=== PATIENT | male | born 1970 | race American Indian/Alaskan Native ===

== ENCOUNTER 2020-07-22 20:53 | Inpatient (IN) | payer MEDICARE ==
--- NOTE | 2020-07-22 22:29 | Emergency Department Report ---
Blank Doc - Documentation Documentation: 50-year-old male that presents with right foot pain and swelling with drainage. 1- This initial assessment/diagnostic orders/clinical plan/ treatment(s) is/are subject to change based on pt's health status, clinical progression and re- assessment by fellow clinical providers in the ED. Further treatment and workup at subsequent clinical provers discretion. Patient/guardians urged not to elope from ED as their condition may be serious if not clinically assessed and managed. 2-x-ray rule out osteomyelitis 3-labs
--- NOTE | 2020-07-22 23:38 | XRay Report ---
RIGHT FOOT 3 VIEW(S) INDICATION / CLINICAL INFORMATION: right foot swelling with drainage r/o osteomyeliti COMPARISON: None available. FINDINGS: BONES / JOINT(S): Prior amputation of the first through fifth phalanges. Increased lucency and osteol ysis noted of the second through fifth metatarsal heads. Periosteal reactions and increased lucency a re noted through the distal shafts of all 5 metatarsals. No acute dislocation. There is partial midfo ot collapse and advanced subtalar arthrosis. SOFT TISSUES: There is a large ulceration over the plantar surface of the heel. Significant diffuse s oft tissue swelling and irregularity is noted throughout the foot. Postsurgical clips are noted over the forefoot and midfoot. Significant enthesophyte the noted at the plantar fascia and Achilles tendo n insertion sites. ADDITIONAL FINDINGS: None. IMPRESSION: 1. Findings consistent with osteomyelitis involving all 5 metatarsals as described above. 2. Postsurgical changes consistent with amputation of all 5 phalanges. 3. Significant soft tissue swelling and edema noted throughout the foot likely represents cellulitis. Additionally there is a large ulcer over the plantar surface of the heel. Signer Name: William Chew MD Signed: 07/22/2020 11:33 PM Workstation Name: [id number]
[2020-07-23 01:36] LABS: Basophils # (Auto) 0.1 K/mm3 (0.0-0.1); Basophils % (Auto) 0.6 % (0.0-1.8); Eosinophils # (Auto) 0.2 K/mm3 (0.0-0.4); Eosinophils % (Auto) 1.7 % (0.0-4.3); Hematocrit 38.9 % (35.5-45.6); Hemoglobin 12.5 gm/dl (11.8-15.2); Lymphocytes # (Auto) 3.9 K/mm3 (1.2-5.4); Lymphocytes % (Auto) 35.6 % (13.4-35.0); Mean Corpuscular HGB Conc 32 % (32-34); Mean Corpuscular Volume 85 fl (84-94); Monocytes # (Auto) 0.8 K/mm3 (0.0-0.8); Monocytes % (Auto) 7.3 % (0.0-7.3); Platelet Count 410 K/mm3 (140-440); Red Cell Distribution Width 18.9 % (13.2-15.2)
[2020-07-23 01:52] LABS: Alanine Aminotransferase 29 units/L (7-56); Albumin 3.5 g/dL (3.9-5); Blood Urea Nitrogen 11 mg/dL (9-20); Calcium 9.4 mg/dL (8.4-10.2); Hemolysis Index 28
[2020-07-23 01:59] LABS: BUN/Creatinine Ratio 16
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
[2020-07-23] MEDS ORDERED: SODIUM CHLORIDE 0.9% 1000 ML 1,000 ML IV ONE (11:47)
[2020-07-23] MEDS ORDERED: PIPERACILLIN/TAZOBACTAM 3.375 3.375 GM/50 ML BAG IV ONE (11:47)
[2020-07-23] MEDS ORDERED: VANCOMYCIN PHARMACY TO DOSE IV SCH ×2 (12:00→22:00)
[2020-07-23] MEDS ORDERED: ASPIRIN 81 MG TAB CHEW PO ONE (12:02)
--- NOTE | 2020-07-23 12:59 | Vascular Lab Report ---
DUPLEX DOPPLER LOWER EXTREMITY VEINS, RIGHT INDICATION / CLINICAL INFORMATION: Right leg swelling. TECHNIQUE: Duplex doppler imaging was performed through the veins of the right lower extremity using venous comp ression and other maneuvers. COMPARISON: None available. FINDINGS: RIGHT COMMON FEMORAL VEIN: Negative. RIGHT FEMORAL VEIN: Negative. RIGHT POPLITEAL VEIN: Negative. RIGHT CALF VEINS: Negative. ADDITIONAL FINDINGS: None. IMPRESSION: 1. No sonographic evidence for DVT in the right lower extremity. Signer Name: Constantino Perales MD Signed: 07/23/2020 12:54 PM Workstation Name: [id number]
[2020-07-23] MEDS ORDERED: VANCOMYCIN 2,000 MG in SODIUM CHLORIDE 0.9% 500 ML 500 ML IV ONE (13:00)
[2020-07-23 15:04] LABS: INR 1.07 (0.87-1.13); Partial Thromboplastin Time 31.1 Sec. (24.2-36.6)
[2020-07-23] MEDS ORDERED: IBUPROFEN 800 MG TAB PO PRN (21:03)
[2020-07-23] MEDS ORDERED: ACETAMINOPHEN 325 MG TAB PO PRN (21:47)
[2020-07-23] MEDS ORDERED: ONDANSETRON 4 MG/2 ML INJ IV PRN (21:47)
[2020-07-23] MEDS ORDERED: HYDROcodone/ACETAMINOPHEN 5-325 MG TAB PO PRN (21:47)
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
[2020-07-23] MEDS: INSULIN GLARGINE 100 UNITS/ML SUB-Q SCH (22:35)
[2020-07-23] MEDS: INSULIN LISPRO 100 UNIT/ML VIAL 3 mL SUB-Q SCH (22:41)
[2020-07-23] MEDS: FAMOTIDINE 20 MG TAB PO SCH (23:55)
[2020-07-24] MEDS: HYDROmorphone 1 MG/1 ML INJ IV PRN ×5 (00:06→20:10)
[2020-07-24] MEDS: AMPICILLIN/SULBACTA 3GM/100ML 3 GM/100 ML BAG IV SCH ×2 (00:09→05:22)
[2020-07-24] MEDS ORDERED: VANCOMYCIN 1,750 MG in SODIUM CHLORIDE 0.9% 500 ML 500 ML IV SCH ×2 (01:00→18:00)
[2020-07-24 02:43] LABS: Basophils % (Auto) 0.3 % (0.0-1.8); Eosinophils # (Auto) 0.2 K/mm3 (0.0-0.4); Eosinophils % (Auto) 2.3 % (0.0-4.3); Hematocrit 31.2 % (35.5-45.6); Hemoglobin 10.4 gm/dl (11.8-15.2); Lymphocytes # (Auto) 3.3 K/mm3 (1.2-5.4); Lymphocytes % (Auto) 41.6 % (13.4-35.0); Mean Corpuscular HGB Conc 33 % (32-34); Mean Corpuscular Volume 82 fl (84-94); Monocytes # (Auto) 0.5 K/mm3 (0.0-0.8); Monocytes % (Auto) 6.4 % (0.0-7.3); Platelet Count 371 K/mm3 (140-440); Red Blood Count 3.79 M/mm3 (3.65-5.03); Red Cell Distribution Width 18.4 % (13.2-15.2)
[2020-07-24 03:02] LABS: Alanine Aminotransferase 25 units/L (7-56); Albumin 3.1 g/dL (3.9-5); Blood Urea Nitrogen 14 mg/dL (9-20); Calcium 8.7 mg/dL (8.4-10.2); Hemolysis Index 4
[2020-07-24 03:17] LABS: BUN/Creatinine Ratio 23
[2020-07-24] MEDS: INSULIN LISPRO 100 UNIT/ML VIAL 3 mL SUB-Q SCH ×3 (08:00→16:33)
--- NOTE | 2020-07-24 08:24 | Progress Note ---
Assessment and Plan Assessment and plan: 50-year-old male with history of severe peripheral arterial disease and diabetes comes in for right foot infection. Patient has left BKA. Patient also has right TMA. The distal part of the TMA is draining pus and also a heel ulcer. Patient has not been following with any bradycardia. Patient went 3 months ago and was given antibiotics. No follow-up with any PCP any physicians. Not attending any wound care clinic. Patient has had a foul-smelling discharge for 1 week. 07/24: Continue supportive care, Will consult Wound care and Surgery, will also get lower ext Doppler of the right lower ext. Case management consult as patient has social issues that needs to be address, such as where to stay (1) Cellulitis of right leg Current Visit: Yes Status: Acute Plan to address problem: Patient initiated on Unasyn and vancomycin. ID consult requested. (2) Osteomyelitis of right foot Current Visit: Yes Status: Acute Plan to address problem: Patient may need further amputation. Surgical consult requested. Also Ortho consult requested. (3) Hypertension Current Visit: Yes Status: Chronic Qualifiers: Hypertension type: essential hypertension Qualified Code(s): I10 - Essential (primary) hypertension Plan to address problem: Continue antihypertensives. (4) T2DM (type 2 diabetes mellitus) Current Visit: Yes Status: Chronic Plan to address problem: -Sliding scale coverage for now long-acting insulin. (5) Anemia Monitor (6) DVT prophylaxis Current Visit: Yes Status: Acute Plan to address problem: On heparin and GI prophylaxis History Interval history: Patient seen and examined no new complaints, still with pain in the legs. 5/10 intensity Hospitalist Physical - Physical exam Narrative exam: General appearance: Present: no acute distress, well-nourished - EENT Eyes: Present: PERRL ENT: hearing intact, clear oral mucosa - Neck Neck: Present: supple, normal ROM - Respiratory Respiratory effort: normal Respiratory: bilateral: CTA - Cardiovascular Rhythm: regular Heart Sounds: Present: S1 & S2. Absent: rub, click - Extremities Extremities: pulses symmetrical, No edema, abnormal (Right foot ulcer and drainage on the TMA region. Also thick clear no heel ulcer. And thick callus present.) Peripheral Pulses: within normal limits - Abdominal General gastrointestinal: Present: soft, non-tender, non-distended, normal bowel sounds Male genitourinary: Present: normal - Integumentary Integumentary: Present: chronic vascular changes. - Musculoskeletal Musculoskeletal: gait normal, strength equal bilaterally - Psychiatric Psychiatric: appropriate mood/affect, intact judgment & insight - Neurologic Neurologic: CNII-XII intact, moves all extremities - Constitutional Vitals: Temp Pulse Resp BP Pulse Ox 98.9 F 78 20 141/83 98 07/24/20 07:33 07/24/20 07:33 07/24/20 07:33 07/24/20 07:33 07/24/20 07:33 General appearance: Present: no acute distress, well-nourished Results - Labs CBC & Chem 7: 07/24/20 02:10 07/24/20 02:10 Labs: Laboratory Last Values WBC 8.0 K/mm3 (4.5-11.0) 07/24/20 02:10 RBC 3.79 M/mm3 (3.65-5.03) 07/24/20 02:10 Hgb 10.4 gm/dl (11.8-15.2) L 07/24/20 02:10 Hct 31.2 % (35.5-45.6) L D 07/24/20 02:10 MCV 82 fl (84-94) L 07/24/20 02:10 MCH 28 pg (28-32) 07/24/20 02:10 MCHC 33 % (32-34) 07/24/20 02:10 RDW 18.4 % (13.2-15.2) H 07/24/20 02:10 Plt Count 371 K/mm3 (140-440) 07/24/20 02:10 Lymph % (Auto) 41.6 % (13.4-35.0) H 07/24/20 02:10 [place] % (Auto) 6.4 % (0.0-7.3) 07/24/20 02:10 Eos % (Auto) 2.3 % (0.0-4.3) 07/24/20 02:10 Baso % (Auto) 0.3 % (0.0-1.8) 07/24/20 02:10 Lymph # (Auto) 3.3 K/mm3 (1.2-5.4) 07/24/20 02:10 [place] # (Auto) 0.5 K/mm3 (0.0-0.8) 07/24/20 02:10 Eos # (Auto) 0.2 K/mm3 (0.0-0.4) 07/24/20 02:10 Baso # (Auto) 0.0 K/mm3 (0.0-0.1) 07/24/20 02:10 Seg Neutrophils % 49.4 % (40.0-70.0) 07/24/20 02:10 Seg Neutrophils # 4.0 K/mm3 (1.8-7.7) 07/24/20 02:10 PT 13.7 Sec. (12.2-14.9) 07/23/20 14:30 INR 1.07 (0.87-1.13) 07/23/20 14:30 APTT 31.1 Sec. (24.2-36.6) 07/23/20 14:30 Sodium 137 mmol/L (137-145) 07/24/20 02:10 Potassium 4.0 mmol/L (3.6-5.0) 07/24/20 02:10 Chloride 102.5 mmol/L (98-107) 07/24/20 02:10 Carbon Dioxide 26 mmol/L (22-30) 07/24/20 02:10 Anion Gap 13 mmol/L 07/24/20 02:10 BUN 14 mg/dL (9-20) 07/24/20 02:10 Creatinine 0.6 mg/dL (0.8-1.3) L 07/24/20 02:10 Estimated GFR > 60 ml/min 07/24/20 02:10 BUN/Creatinine Ratio 23 % 07/24/20 02:10 Glucose 262 mg/dL (75-100) H 07/24/20 02:10 POC Glucose 174 mg/dL (70-105) H 07/24/20 07:31 Hemoglobin A1c 9.6 % (4-6) H 07/24/20 00:46 Lactic Acid 1.20 mmol/L (0.7-2.0) 07/23/20 14:30 Calcium 8.7 mg/dL (8.4-10.2) 07/24/20 02:10 Magnesium 2.10 mg/dL (1.7-2.3) 07/23/20 14:30 Total Bilirubin 0.30 mg/dL (0.1-1.2) 07/24/20 02:10 AST 19 units/L (5-40) 07/24/20 02:10 ALT 25 units/L (7-56) 07/24/20 02:10 Alkaline Phosphatase 127 units/L (35-129) 07/24/20 02:10 NT-Pro-B Natriuret Pep 415.0 pg/mL (0-450) 07/23/20 14:30 Total Protein 7.1 g/dL (6.3-8.2) 07/24/20 02:10 Albumin 3.1 g/dL (3.9-5) L 07/24/20 02:10 Albumin/Globulin Ratio 0.8 % 07/24/20 02:10 Microbiology: Microbiology 07/23/20 14:38 Peripheral/Venous Blood Culture - Preliminary Culture in Progress 07/23/20 14:30 Peripheral/Venous Blood Culture - Preliminary Culture in Progress Fraser/IV: Voiding Method Urinal IV Catheter Type [Left Peripheral IV Antecubital] IV Catheter Type [Right Wrist] INT / Saline Lock Active Medications - Current Medications Current Medications: Generic Name Dose Route Start Last Admin Trade Name Freq PRN Reason Stop Dose Admin Acetaminophen 650 mg 07/23/20 21:47 Acetaminophen 325 Mg Tab PO Q4H PRN Pain MILD(1-3)/Fever >100.5/[place] Famotidine 20 mg 07/23/20 22:00 07/23/20 23:55 Famotidine 20 Mg Tab PO 20 mg BID IRMA Administration Hydromorphone HCl 0.5 mg 07/23/20 21:47 07/24/20 05:19 Hydromorphone 1 Mg/1 Ml Inj IV 0.5 mg Q3H PRN Administration Pain , Severe (7-10) Vancomycin HCl 1,750 mg/ 535 mls @ 333.333 mls/hr 07/24/20 01:00 07/24/20 02:00 Sodium Chloride IV 333.333 mls/hr Q12H IRMA Administration Ampicillin Sodium/Sulbactam Sodium 3 gm in 100 mls @ 100 mls/hr 07/24/20 00:00 07/24/20 05:22 Unasyn/Ns 3 Gm/100 Ml IV 100 mls/hr Q6HR IRMA Administration Protocol Ibuprofen 800 mg 07/23/20 21:03 07/23/20 21:13 Ibuprofen 800 Mg Tab PO 800 mg Q8H PRN Administration Pain, Mild (1-3) Insulin Glargine 25 units 07/23/20 22:00 07/23/20 22:35 Insulin Glargine 100 Units/Ml SUB-Q 25 units QHS IRMA Administration Insulin Human Lispro 0 unit 07/23/20 22:00 07/23/20 22:41 Insulin Lispro 100 Unit/Ml Vial 3 Ml SUB-Q 4 unit ACHS IRMA Administration Protocol Ondansetron HCl 4 mg 07/23/20 21:47 Ondansetron 4 Mg/2 Ml Inj IV Q8H PRN Nausea And Vomiting Sodium Chloride 10 ml 07/23/20 22:00 07/24/20 05:26 Sodium Chloride 0.9% 10 Ml Flush Syringe IV 10 ml BID IRMA Administration Sodium Chloride 10 ml 07/23/20 21:47 Sodium Chloride 0.9% 10 Ml Flush Syringe IV PRN PRN LINE FLUSH
--- NOTE | 2020-07-24 08:54 | Consultation ---
History of Present Illness - Reason for Consult Consult date: 07/24/20 right foot cellulitis Requesting physician: VANNESSA BERUMEN - History of Present Illness 50 years old male with history of uncontrolled diabetes, hypertension, severe peripheral vascular disease, previous left BKA, previous right TMA, admitted on 07/22/2020 secondary to distal right TMA stump draining foul-smelling purulence associated with pain and subjective fever. And also a right heel ulcer for over a week. Patient noted a new ulcer on right TMA 4 weeks before admission. Patient is homeless. He was seen at [facility] 3 months ago and was given antibiotics. On arrival, temperature 97.6, HR 99, RR 18, O2 sat 99%, BP 154/96. Initial WBC 11. Hemoglobin 10.5. Platelet 410. A1c 9.6. Blood cultures no growth today. Right foot x-ray shows osteomyelitis of the feet metatarsal with significant soft tissue swelling. Ultrasound no DVT. Review of Systems: positive in bold print General: fever, chills, malaise Cutaneous: rash, pruritus Head: headaches or injury Eyes: changes in vision, eye pain, double vision Ears: ear pain, ear discharge, ringing or hearing loss Nose: nose bleeding, stuffiness Mouth & throat: bleeding gums, horseness, no dental problems, or swollen glands Neck: no pain, node enlargement/lumps, tyroid enlargement or tenderness Respiratory: SOB, cough, BEAR, wheezing, sputum, hemoptysis, pleuritic chest pain Cardiovascular: chest pain, leg edema, cyanosis, BEAR, orthopnea Musculoskeletal: Right TMA ulcer and drainage Gastrointestinal: nausea, vomiting, hematemesis, diarrhea, constipation, melena, bright red blood in stools, fecal incontinence, jaundice Genitourinary/Reproductive: frequent urination, dysuria, hematuria, incontinence Neurogical: seizures, headaches, weakness, paresthesias, loss of speech or vision; memory loss, vertigo, tremors, numbness Psychiatric: stable mood; excessive anxiety, sadness or moodiness Medications and Allergies Allergies Allergy/AdvReac Type Severity Reaction Status Date / Time acetaminophen [From Vicodin] Allergy Unknown Verified 07/23/20 12:02 exenatide [From Byetta] Allergy Unknown Verified 07/23/20 12:02 hydrocodone [From Vicodin] Allergy Unknown Verified 07/23/20 12:02 pioglitazone [From Actos] Allergy Unknown Verified 07/23/20 12:02 Active Meds: Active Medications Acetaminophen (Acetaminophen 325 Mg Tab) 650 mg PO Q4H PRN PRN Reason: Pain MILD(1-3)/Fever >100.5/[place] Famotidine (Famotidine 20 Mg Tab) 20 mg PO BID [facility] Last Admin: 07/23/20 23:55 Dose: 20 mg Documented by: Hydromorphone HCl (Hydromorphone 1 Mg/1 Ml Inj) 0.5 mg IV Q3H PRN PRN Reason: Pain , Severe (7-10) Last Admin: 07/24/20 05:19 Dose: 0.5 mg Documented by: Vancomycin HCl 1,750 mg/ (Sodium Chloride) 535 mls @ 333.333 mls/hr IV Q12H [facility] Last Admin: 07/24/20 02:00 Dose: 333.333 mls/hr Documented by: Ampicillin Sodium/Sulbactam Sodium (Unasyn/Ns 3 Gm/100 Ml) 3 gm in 100 mls @ 100 mls/hr IV Q6HR [facility]; Protocol Last Admin: 07/24/20 05:22 Dose: 100 mls/hr Documented by: Ibuprofen (Ibuprofen 800 Mg Tab) 800 mg PO Q8H PRN PRN Reason: Pain, Mild (1-3) Last Admin: 07/23/20 21:13 Dose: 800 mg Documented by: Insulin Glargine (Insulin Glargine 100 Units/Ml) 25 units SUB-Q QHS [facility] Last Admin: 07/23/20 22:35 Dose: 25 units Documented by: Insulin Human Lispro (Insulin Lispro 100 Unit/Ml Vial 3 Ml) 0 unit SUB-Q ACHS [facility]; Protocol Last Admin: 07/23/20 22:41 Dose: 4 unit Documented by: Ondansetron HCl (Ondansetron 4 Mg/2 Ml Inj) 4 mg IV Q8H PRN PRN Reason: Nausea And Vomiting Sodium Chloride (Sodium Chloride 0.9% 10 Ml Flush Syringe) 10 ml IV BID [facility] Last Admin: 07/24/20 05:26 Dose: 10 ml Documented by: Sodium Chloride (Sodium Chloride 0.9% 10 Ml Flush Syringe) 10 ml IV PRN PRN PRN Reason: LINE FLUSH Physical Examination - Physical Exam Narrative exam: General appearance: Alert in NAD Eyes: anicteric sclerae, moist conjunctivae; no lid-lag; PERRLA HENT: Normocephalic, Atraumatic; normal external ears, nares open, oropharynx clear Neck: supple, tracheal midline, no JVD Lungs: CTA, with normal respiratory effort and no intercostal retractions CV: RRR no murmur Abdomen: Soft, non-tender; no masses or hepatosplenomegaly Extremities: Left below-knee amputation stump healed, right TMA with wound covered with dressing Skin: No rash. Psych: no agitated Neuro: alert and oriented x 3. Moving all extermities - Constitutional Vitals: Vital Signs Temp Pulse Resp BP Pulse Ox 98.9 F 78 20 141/83 98 07/24/20 07:33 07/24/20 07:33 07/24/20 07:33 07/24/20 07:33 07/24/20 07:33 Temperature -Last 24 Hours Temperature 98.9 F Temperature 97.8 F Temperature 97.9 F Temperature 98.4 F Results - Labs CBC & Chem 7: 07/24/20 02:10 07/24/20 02:10 Labs: Abnormal lab results 07/23/20 07/24/20 07/24/20 Range/Units 21:17 00:46 02:10 Hgb 10.4 L (11.8-15.2) gm/dl Hct 31.2 L D (35.5-45.6) % MCV 82 L (84-94) fl RDW 18.4 H (13.2-15.2) % Lymph % (Auto) 41.6 H (13.4-35.0) % Creatinine (0.8-1.3) mg/dL Glucose (75-100) mg/dL POC Glucose 293 H (70-105) mg/dL Hemoglobin A1c 9.6 H (4-6) % Albumin (3.9-5) g/dL 07/24/20 07/24/20 Range/Units 02:10 07:31 Hgb (11.8-15.2) gm/dl Hct (35.5-45.6) % MCV (84-94) fl RDW (13.2-15.2) % Lymph % (Auto) (13.4-35.0) % Creatinine 0.6 L (0.8-1.3) mg/dL Glucose 262 H (75-100) mg/dL POC Glucose 174 H (70-105) mg/dL Hemoglobin A1c (4-6) % Albumin 3.1 L (3.9-5) g/dL Assessment and Plan Cultures: Blood cultures no growth today Assessment: 50 years old male with history of uncontrolled diabetes, hypertension, severe peripheral vascular disease, previous left BKA, previous ri ght TMA, admitted on 07/22/2020 secondary to distal right TMA stump draining foul-smelling purulence associated with pain and subjective fever: #Right TMA stump infection/osteomyelitis: Patient has no records in this hospital. Unknown etiology. #Diabetes mellitus: Uncontrolled, A1c 9.6. #Peripheral vascular disease: With history of revascularization. Recommendations: -Obtain the wound cultures -Check CRP -Obtain surgical consult, may require further debridement versus amputation -Obtain arterial ultrasound -Stop Unasyn -Start cefepime 2 g IV every 12 hours -Start metronidazole 500 g IV every 8 hours Will follow. Sruthi Valenzuela MD Infectious Diseases [employer] War[employer] Boat Operator [facility], [place], [facility] M [phone] O [phone]
[2020-07-24] MEDS: FAMOTIDINE 20 MG TAB PO SCH ×2 (10:14→21:35)
[2020-07-24] MEDS: CEFEPIME/NS 2 GM/100 ML 2 GM/100 ML BAG IV SCH ×2 (13:30→21:21)
[2020-07-24] MEDS: metroNIDAZOLE/NS 500 MG/100 ML 500 MG/100 ML BAG IV SCH (14:02)
--- NOTE | 2020-07-24 15:15 | Consultation ---
History of Present Illness Consult date: 07/24/20 - History of present illness History of present illness: 50 yo diabetic, s/p left BKA, now with an ulcer on the plantar aspect of his right foot. He is s/p TMA of a right toe 3-4 weeks ago at [place]. Past History Past Medical History: diabetes Medications and Allergies Allergies Allergy/AdvReac Type Severity Reaction Status Date / Time acetaminophen [From Vicodin] Allergy Unknown Verified 07/23/20 12:02 exenatide [From Byetta] Allergy Unknown Verified 07/23/20 12:02 hydrocodone [From Vicodin] Allergy Unknown Verified 07/23/20 12:02 pioglitazone [From Actos] Allergy Unknown Verified 07/23/20 12:02 Active Meds: Active Medications Acetaminophen (Acetaminophen 325 Mg Tab) 650 mg PO Q4H PRN PRN Reason: Pain MILD(1-3)/Fever >100.5/[place] Famotidine (Famotidine 20 Mg Tab) 20 mg PO BID [facility] Last Admin: 07/24/20 10:14 Dose: 20 mg Documented by: Hydromorphone HCl (Hydromorphone 1 Mg/1 Ml Inj) 0.5 mg IV Q3H PRN PRN Reason: Pain , Severe (7-10) Last Admin: 07/24/20 14:00 Dose: 0.5 mg Documented by: Metronidazole (Flagyl 500 Mg/100 Ml) 500 mg in 100 mls @ 100 mls/hr IV Q8HR [facility] Last Admin: 07/24/20 14:02 Dose: 100 mls/hr Documented by: Cefepime HCl (Cefepime/Ns 2 Gm/100 Ml) 2 gm in 100 mls @ 200 mls/hr IV Q12HR [facility] Last Admin: 07/24/20 13:30 Dose: 200 mls/hr Documented by: Ibuprofen (Ibuprofen 800 Mg Tab) 800 mg PO Q8H PRN PRN Reason: Pain, Mild (1-3) Last Admin: 07/23/20 21:13 Dose: 800 mg Documented by: Insulin Glargine (Insulin Glargine 100 Units/Ml) 25 units SUB-Q QHS [facility] Last Admin: 07/23/20 22:35 Dose: 25 units Documented by: Insulin Human Lispro (Insulin Lispro 100 Unit/Ml Vial 3 Ml) 0 unit SUB-Q ACHS [facility]; Protocol Last Admin: 07/23/20 22:41 Dose: 4 unit Documented by: Ondansetron HCl (Ondansetron 4 Mg/2 Ml Inj) 4 mg IV Q8H PRN PRN Reason: Nausea And Vomiting Sodium Chloride (Sodium Chloride 0.9% 10 Ml Flush Syringe) 10 ml IV BID [facility] Last Admin: 07/24/20 05:26 Dose: 10 ml Documented by: Sodium Chloride (Sodium Chloride 0.9% 10 Ml Flush Syringe) 10 ml IV PRN PRN PRN Reason: LINE FLUSH Review of Systems All systems: negative (none) Exam Vital Signs Temp Pulse Resp BP Pulse Ox 97.6 F 99 H 18 154/96 99 07/22/20 21:07 07/22/20 21:07 07/22/20 21:07 07/22/20 21:07 07/22/20 21:07 - General physical appearance Positive: well developed, well nourished, no distress - Eyes Positive: PERRL, normal occular movement - ENT Positive: normal pinna, normal nares, normal mucosa, no hearing loss, no congestion - Neck Positive: no masses, no bruits, trachea midline, no venous distension - Respiratory Positive: normal expansion, normal respiratory effort, clear to auscultation - Cardiovascular Rhythm: regular Heart Sounds: Present: S1 & S2. Absent: rub, click - Extremities Extremities: no ischemia, pulses symmetrical, No edema - Breasts Breasts: normal, no mass, no skin changes - Abdomen Abdomen: Present: soft, bowel sounds normal. Absent: tender, distended Hernia: none - Genitourinary Male Genitourinary: normal Female Genitourinary: normal - Integumentary no rash, no growths, other (There is a 7.5 X 6 X 0.3 cm superficial ulceration on the plantar aspect of his medial right foot. I see no evidence of underyling infection or abscess. Right DP pulse is non-palpable.) - Neurologic Neurologic: alert and oriented to time, place and person, motor strength and sensation are grossly intact - Musculoskeletal normal gait, normal posture - Psychiatric Psychiatric: appropriate mood/affect, intact judgment & insight Results - Labs 07/24/20 02:10 07/24/20 02:10 Abnormal lab results 07/23/20 07/24/20 07/24/20 Range/Units 21:17 00:46 02:10 Hgb 10.4 L (11.8-15.2) gm/dl Hct 31.2 L D (35.5-45.6) % MCV 82 L (84-94) fl RDW 18.4 H (13.2-15.2) % Lymph % (Auto) 41.6 H (13.4-35.0) % Creatinine (0.8-1.3) mg/dL Glucose (75-100) mg/dL POC Glucose 293 H (70-105) mg/dL Hemoglobin A1c 9.6 H (4-6) % Albumin (3.9-5) g/dL 07/24/20 07/24/20 07/24/20 Range/Units 02:10 07:31 11:26 Hgb (11.8-15.2) gm/dl Hct (35.5-45.6) % MCV (84-94) fl RDW (13.2-15.2) % Lymph % (Auto) (13.4-35.0) % Creatinine 0.6 L (0.8-1.3) mg/dL Glucose 262 H (75-100) mg/dL POC Glucose 174 H 176 H (70-105) mg/dL Hemoglobin A1c (4-6) % Albumin 3.1 L (3.9-5) g/dL Diabetes panel 07/24/20 07/24/20 Range/Units 00:46 02:10 Sodium 137 (137-145) mmol/L Potassium 4.0 (3.6-5.0) mmol/L Chloride 102.5 (98-107) mmol/L Carbon Dioxide 26 (22-30) mmol/L BUN 14 (9-20) mg/dL Creatinine 0.6 L (0.8-1.3) mg/dL Glucose 262 H (75-100) mg/dL Hemoglobin A1c 9.6 H (4-6) % Calcium 8.7 (8.4-10.2) mg/dL AST 19 (5-40) units/L ALT 25 (7-56) units/L Alkaline Phosphatase 127 (35-129) units/L Total Protein 7.1 (6.3-8.2) g/dL Albumin 3.1 L (3.9-5) g/dL Calcium panel 07/24/20 Range/Units 02:10 Calcium 8.7 (8.4-10.2) mg/dL Albumin 3.1 L (3.9-5) g/dL Pituitary panel 07/24/20 Range/Units 02:10 Sodium 137 (137-145) mmol/L Potassium 4.0 (3.6-5.0) mmol/L Chloride 102.5 (98-107) mmol/L Carbon Dioxide 26 (22-30) mmol/L BUN 14 (9-20) mg/dL Creatinine 0.6 L (0.8-1.3) mg/dL Glucose 262 H (75-100) mg/dL Calcium 8.7 (8.4-10.2) mg/dL Adrenal panel 07/24/20 Range/Units 02:10 Sodium 137 (137-145) mmol/L Potassium 4.0 (3.6-5.0) mmol/L Chloride 102.5 (98-107) mmol/L Carbon Dioxide 26 (22-30) mmol/L BUN 14 (9-20) mg/dL Creatinine 0.6 L (0.8-1.3) mg/dL Glucose 262 H (75-100) mg/dL Calcium 8.7 (8.4-10.2) mg/dL Total Bilirubin 0.30 (0.1-1.2) mg/dL AST 19 (5-40) units/L ALT 25 (7-56) units/L Alkaline Phosphatase 127 (35-129) units/L Total Protein 7.1 (6.3-8.2) g/dL Albumin 3.1 L (3.9-5) g/dL - Imaging Additional studies: RLE arterial dopplers on were reviewed and revealed Assessment and Plan - Patient Problems (1) Osteomyelitis of right foot Current Visit: Yes Status: Acute Plan to address problem: 1) I will review the plain x-ray of his right foot and the RLE arterial dopplers. 2) Wound care consult 3) Strict management of DM
[2020-07-25] MEDS: metroNIDAZOLE/NS 500 MG/100 ML 500 MG/100 ML BAG IV SCH ×4 (00:02→22:11)
[2020-07-25] MEDS: INSULIN LISPRO 100 UNIT/ML VIAL 3 mL SUB-Q SCH ×5 (00:03→22:27)
[2020-07-25] MEDS: AMPICILLIN/SULBACTA 3GM/100ML 3 GM/100 ML BAG IV SCH (00:07)
[2020-07-25 05:47] LABS: Hematocrit 35.8 % (35.5-45.6); Hemoglobin 11.5 gm/dl (11.8-15.2); Mean Corpuscular HGB Conc 32 % (32-34); Mean Corpuscular Volume 84 fl (84-94); Platelet Count 388 K/mm3 (140-440); Red Blood Count 4.25 M/mm3 (3.65-5.03); Red Cell Distribution Width 18.8 % (13.2-15.2)
[2020-07-25 06:01] LABS: Blood Urea Nitrogen 10 mg/dL (9-20); Calcium 8.6 mg/dL (8.4-10.2); Hemolysis Index 50
[2020-07-25 06:02] LABS: BUN/Creatinine Ratio 17
[2020-07-25] MEDS: HYDROmorphone 1 MG/1 ML INJ IV PRN ×4 (08:05→23:23)
--- NOTE | 2020-07-25 08:50 | Progress Note ---
Assessment and Plan Assessment and plan: 50-year-old male with history of severe peripheral arterial disease and diabetes comes in for right foot infection. Patient has left BKA. Patient also has right TMA. The distal part of the TMA is draining pus and also a heel ulcer. Patient has not been following with any bradycardia. Patient went 3 months ago and was given antibiotics. No follow-up with any PCP any physicians. Not attending any wound care clinic. Patient has had a foul-smelling discharge for 1 week. 07/24: Continue supportive care, Will consult Wound care and Surgery, will also get lower ext Doppler of the right lower ext. Case management consult as patient has social issues that needs to be address, such as where to stay 07/25: Continue supportive care. Awaiting re-eval from surgery after reviewing imaging, obtain arterial study considering poor wound healing. Venous doppler was negative. Adjust insulin for better blood glucose control. Further evaluation yesterday shows that the patient was refusing further surgery. I will order a Doppler of the arteries as patient possibly has underlying PAD. (1) Cellulitis of right leg Current Visit: Yes Status: Acute Plan to address problem: Patient initiated on Unasyn and vancomycin. ID consult requested. (2) Osteomyelitis of right foot Current Visit: Yes Status: Acute Plan to address problem: Patient may need further amputation. Surgical consult requested. Also Ortho consult requested. (3) Hypertension Current Visit: Yes Status: Chronic Qualifiers: Hypertension type: essential hypertension Qualified Code(s): I10 - Essential (primary) hypertension Plan to address problem: Continue antihypertensives. (4) T2DM (type 2 diabetes mellitus) Current Visit: Yes Status: Chronic Plan to address problem: -Sliding scale coverage for now long-acting insulin. (5) Anemia Monitor (6) DVT prophylaxis Current Visit: Yes Status: Acute Plan to address problem: On heparin and GI prophylaxis History Interval history: Patient seen and examined no new complaints, still with pain in the legs. 3/10 intensity. Informs me that he is homeless and would like a social work consult Hospitalist Physical - Physical exam Narrative exam: General appearance: Present: no acute distress, well-nourished - EENT Eyes: Present: PERRL ENT: hearing intact, clear oral mucosa - Neck Neck: Present: supple, normal ROM - Respiratory Respiratory effort: normal Respiratory: bilateral: CTA - Cardiovascular Rhythm: regular Heart Sounds: Present: S1 & S2. Absent: rub, click - Extremities Extremities: pulses symmetrical, No edema, abnormal (Right foot ulcer and drainage on the TMA region. Also thick clear no heel ulcer. And thick callus present.) Peripheral Pulses: within normal limits - Abdominal General gastrointestinal: Present: soft, non-tender, non-distended, normal bowel sounds Male genitourinary: Present: normal - Integumentary Integumentary: Present: chronic vascular changes. - Musculoskeletal Musculoskeletal: gait normal, strength equal bilaterally - Psychiatric Psychiatric: appropriate mood/affect, intact judgment & insight - Neurologic Neurologic: CNII-XII intact, moves all extremities - Constitutional Vitals: Temp Pulse Resp BP Pulse Ox 97.9 F 79 18 178/93 97 07/25/20 08:01 07/25/20 05:34 07/25/20 08:01 07/25/20 08:01 07/25/20 05:34 General appearance: Present: no acute distress, well-nourished Results - Labs CBC & Chem 7: 07/25/20 05:03 07/25/20 05:03 Labs: Laboratory Last Values WBC 7.9 K/mm3 (4.5-11.0) 07/25/20 05:03 RBC 4.25 M/mm3 (3.65-5.03) 07/25/20 05:03 Hgb 11.5 gm/dl (11.8-15.2) L 07/25/20 05:03 Hct 35.8 % (35.5-45.6) 07/25/20 05:03 MCV 84 fl (84-94) 07/25/20 05:03 MCH 27 pg (28-32) L 07/25/20 05:03 MCHC 32 % (32-34) 07/25/20 05:03 RDW 18.8 % (13.2-15.2) H 07/25/20 05:03 Plt Count 388 K/mm3 (140-440) 07/25/20 05:03 Lymph % (Auto) 41.6 % (13.4-35.0) H 07/24/20 02:10 [place] % (Auto) 6.4 % (0.0-7.3) 07/24/20 02:10 Eos % (Auto) 2.3 % (0.0-4.3) 07/24/20 02:10 Baso % (Auto) 0.3 % (0.0-1.8) 07/24/20 02:10 Lymph # (Auto) 3.3 K/mm3 (1.2-5.4) 07/24/20 02:10 [place] # (Auto) 0.5 K/mm3 (0.0-0.8) 07/24/20 02:10 Eos # (Auto) 0.2 K/mm3 (0.0-0.4) 07/24/20 02:10 Baso # (Auto) 0.0 K/mm3 (0.0-0.1) 07/24/20 02:10 Seg Neutrophils % 49.4 % (40.0-70.0) 07/24/20 02:10 Seg Neutrophils # 4.0 K/mm3 (1.8-7.7) 07/24/20 02:10 PT 13.7 Sec. (12.2-14.9) 07/23/20 14:30 INR 1.07 (0.87-1.13) 07/23/20 14:30 APTT 31.1 Sec. (24.2-36.6) 07/23/20 14:30 Sodium 134 mmol/L (137-145) L 07/25/20 05:03 Potassium 4.1 mmol/L (3.6-5.0) 07/25/20 05:03 Chloride 100.9 mmol/L (98-107) 07/25/20 05:03 Carbon Dioxide 29 mmol/L (22-30) 07/25/20 05:03 Anion Gap 8 mmol/L 07/25/20 05:03 BUN 10 mg/dL (9-20) 07/25/20 05:03 Creatinine 0.6 mg/dL (0.8-1.3) L 07/25/20 05:03 Estimated GFR > 60 ml/min 07/25/20 05:03 BUN/Creatinine Ratio 17 % 07/25/20 05:03 Glucose 239 mg/dL (75-100) H 07/25/20 05:03 POC Glucose 201 mg/dL (70-105) H 07/25/20 07:59 Hemoglobin A1c 9.6 % (4-6) H 07/24/20 00:46 Lactic Acid 1.20 mmol/L (0.7-2.0) 07/23/20 14:30 Calcium 8.6 mg/dL (8.4-10.2) 07/25/20 05:03 Magnesium 2.10 mg/dL (1.7-2.3) 07/23/20 14:30 Total Bilirubin 0.30 mg/dL (0.1-1.2) 07/24/20 02:10 AST 19 units/L (5-40) 07/24/20 02:10 ALT 25 units/L (7-56) 07/24/20 02:10 Alkaline Phosphatase 127 units/L (35-129) 07/24/20 02:10 C-Reactive Protein 1.30 mg/dL (0.00-1.30) 07/25/20 05:03 NT-Pro-B Natriuret Pep 415.0 pg/mL (0-450) 07/23/20 14:30 Total Protein 7.1 g/dL (6.3-8.2) 07/24/20 02:10 Albumin 3.1 g/dL (3.9-5) L 07/24/20 02:10 Albumin/Globulin Ratio 0.8 % 07/24/20 02:10 Microbiology: Microbiology 07/23/20 14:38 Peripheral/Venous Blood Culture - Preliminary NO GROWTH AFTER 24 HOURS 07/23/20 14:30 Peripheral/Venous Blood Culture - Preliminary NO GROWTH AFTER 24 HOURS Fraser/IV: Voiding Method Toilet IV Catheter Type [Left Peripheral IV Antecubital] IV Catheter Type [Right Wrist] INT / Saline Lock Active Medications - Current Medications Current Medications: Generic Name Dose Route Start Last Admin Trade Name Freq PRN Reason Stop Dose Admin Acetaminophen 650 mg 07/23/20 21:47 Acetaminophen 325 Mg Tab PO Q4H PRN Pain MILD(1-3)/Fever >100.5/[place] Famotidine 20 mg 07/23/20 22:00 07/24/20 21:35 Famotidine 20 Mg Tab PO 20 mg BID [facility] Administration Hydromorphone HCl 0.5 mg 07/23/20 21:47 07/25/20 08:05 Hydromorphone 1 Mg/1 Ml Inj IV 0.5 mg Q3H PRN Administration Pain , Severe (7-10) Metronidazole 500 mg in 100 mls @ 100 mls/hr 07/24/20 14:00 07/25/20 06:37 Flagyl 500 Mg/100 Ml IV 100 mls/hr Q8HR [facility] Administration Cefepime HCl 2 gm in 100 mls @ 200 mls/hr 07/24/20 12:30 07/24/20 21:21 Cefepime/Ns 2 Gm/100 Ml IV 200 mls/hr Q12HR [facility] Administration Ibuprofen 800 mg 07/23/20 21:03 07/23/20 21:13 Ibuprofen 800 Mg Tab PO 800 mg Q8H PRN Administration Pain, Mild (1-3) Insulin Glargine 25 units 07/23/20 22:00 07/25/20 00:00 Insulin Glargine 100 Units/Ml SUB-Q 25 units QHS [facility] Administration Insulin Human Lispro 0 unit 07/23/20 22:00 07/25/20 00:03 Insulin Lispro 100 Unit/Ml Vial 3 Ml SUB-Q 6 unit ACHS [facility] Administration Protocol Ondansetron HCl 4 mg 07/23/20 21:47 Ondansetron 4 Mg/2 Ml Inj IV Q8H PRN Nausea And Vomiting Sodium Chloride 10 ml 07/23/20 22:00 07/24/20 21:26 Sodium Chloride 0.9% 10 Ml Flush Syringe IV 10 ml BID [facility] Administration Sodium Chloride 10 ml 07/23/20 21:47 Sodium Chloride 0.9% 10 Ml Flush Syringe IV PRN PRN LINE FLUSH Nutrition/Malnutrition Assess - Dietary Evaluation Nutrition/Malnutrition Findings: Nutrition Notes Start: 07/24/20 15:08 Freq: Status: Active Protocol: Document 07/24/20 15:08 (Rec: 07/24/20 15:14 [id number]) Nutrition Notes Initial or Follow up Brief Note Current Diagnosis Diabetes,Hypertension Other Pertinent Diagnosis PVD, right heal ulcer, L BKA, previous R TMA Current Diet Cardiac, Consistent CHO Labs/Tests A1c 9.6 Subjective/Other Information Pt requesting diet education about current diet. Pt also requested diet edu for when he is discharged. Pt states he is homeless and eats at fastfood resturants for most meals. Foods include: coffee, eggs, grits, chicken sausage, fried chicken sandwiches, and cheese burgers. came in to address wound at time of visit . Nutrition Intervention Follow-Up By: 07/25/20 Additional Comments FU for diet education
[2020-07-25] MEDS: FAMOTIDINE 20 MG TAB PO SCH ×2 (10:13→22:11)
[2020-07-25] MEDS: CEFEPIME/NS 2 GM/100 ML 2 GM/100 ML BAG IV SCH ×2 (10:13→23:17)
--- NOTE | 2020-07-25 10:32 | Progress Note ---
Assessment and Plan Cultures: Blood cultures no growth today Assessment: 50 years old male with history of uncontrolled diabetes, hypertension, severe peripheral vascular disease, previous left BKA, previous right TMA, admitted on 07/22/2020 secondary to distal right TMA stump draining foul-smelling purulence associated with pain and subjective fever: #Right TMA stump infection/osteomyelitis?: Patient has no records in this h ospital. S/p TMA of a right toe 3-4 weeks ago at [place]. Unknown etiology. CRP 1.3. On exam per wound care -right plantar foot diabetic ulcer, measures 8 x 7 x 0.2 cm. Wound bed is red. Moderate amount of serosanguineous drainage, no odor noted at this time. Periwound skin is moist and macerated, with scar tissue noted. #Diabetes mellitus: Uncontrolled, A1c 9.6. #Peripheral vascular disease: With history of revascularization. Recommendations: -Surgery on board -Obtain arterial ultrasound - pending -Continue cefepime 2 g IV every 12 hours -Continue metronidazole 500 g IV every 8 hours -If not need for revascularization or further debridement ok to d/c on doxycycline 100 mg po bid and augmentin 875 mg po bid for 10 days total and f/u with surgical group at [place] Will follow. Sruthi Valenzuela MD Infectious Diseases Traffic Signal Supervisor Maintenance [facility] M [phone] O [phone] Subjective Date of service: 07/25/20 Principal diagnosis: Osteomyelitis Interval history: Feels ok no complaints no fever Objective - Exam Narrative Exam: General appearance: Alert in NAD Eyes: anicteric sclerae, moist conjunctivae; no lid-lag; PERRLA HENT: Normocephalic, Atraumatic; normal external ears, nares open, oropharynx clear Neck: supple, tracheal midline, no JVD Lungs: CTA, with normal respiratory effort and no intercostal retractions CV: RRR no murmur Abdomen: Soft, non-tender; no masses or hepatosplenomegaly Extremities: Left below-knee amputation stump healed, right TMA with wound covered with dressing Skin: No rash. Psych: no agitated Neuro: alert and oriented x 3. Moving all extermities - Constitutional Vitals: Vital Signs Temp Pulse Resp BP Pulse Ox 97.9 F 79 18 178/93 97 07/25/20 08:01 07/25/20 05:34 07/25/20 08:01 07/25/20 08:01 07/25/20 05:34 Temperature -Last 24 Hours Temperature 97.9 F Temperature 98.1 F Temperature 98.5 F Temperature 97.6 F Temperature 98.9 F Temperature 97.0 F - Labs CBC & Chem 7: 07/25/20 05:03 07/25/20 05:03 Labs: Abnormal lab results 07/24/20 07/24/20 07/24/20 Range/Units 11:26 16:01 22:38 Hgb (11.8-15.2) gm/dl MCH (28-32) pg RDW (13.2-15.2) % Sodium (137-145) mmol/L Creatinine (0.8-1.3) mg/dL Glucose (75-100) mg/dL POC Glucose 176 H 206 H 251 H (70-105) mg/dL 07/25/20 07/25/20 07/25/20 Range/Units 05:03 05:03 07:59 Hgb 11.5 L (11.8-15.2) gm/dl MCH 27 L (28-32) pg RDW 18.8 H (13.2-15.2) % Sodium 134 L (137-145) mmol/L Creatinine 0.6 L (0.8-1.3) mg/dL Glucose 239 H (75-100) mg/dL POC Glucose 201 H (70-105) mg/dL
--- NOTE | 2020-07-25 14:00 | Progress Note ---
Assessment and Plan - Patient Problems (1) Osteomyelitis of right foot Current Visit: Yes Status: Acute Plan to address problem: 1) Pt refuses consideration of further surgery (i.e., TMA of metatarsal heads) 2) Follow ID recommendations 3) HBOT as an outpt although this may be challenging as pt is homeless. Subjective Date of service: 07/25/20 Patient Reports: Positive: no new complaints Objective Vital Signs - 12hr 07/25/20 07/25/20 07/25/20 05:34 08:01 11:38 Temperature 98.1 F 97.9 F 98.4 F Pulse Rate 79 83 Respiratory 18 18 18 Rate Blood Pressure 147/86 178/93 174/94 O2 Sat by Pulse 97 97 Oximetry - Integumentary other (No change in right foot exam.) - Labs 07/25/20 05:03 07/25/20 05:03 Diabetes panel 07/25/20 Range/Units 05:03 Sodium 134 L (137-145) mmol/L Potassium 4.1 (3.6-5.0) mmol/L Chloride 100.9 (98-107) mmol/L Carbon Dioxide 29 (22-30) mmol/L BUN 10 (9-20) mg/dL Creatinine 0.6 L (0.8-1.3) mg/dL Glucose 239 H (75-100) mg/dL Calcium 8.6 (8.4-10.2) mg/dL Calcium panel 07/25/20 Range/Units 05:03 Calcium 8.6 (8.4-10.2) mg/dL Pituitary panel 07/25/20 Range/Units 05:03 Sodium 134 L (137-145) mmol/L Potassium 4.1 (3.6-5.0) mmol/L Chloride 100.9 (98-107) mmol/L Carbon Dioxide 29 (22-30) mmol/L BUN 10 (9-20) mg/dL Creatinine 0.6 L (0.8-1.3) mg/dL Glucose 239 H (75-100) mg/dL Calcium 8.6 (8.4-10.2) mg/dL Adrenal panel 07/25/20 Range/Units 05:03 Sodium 134 L (137-145) mmol/L Potassium 4.1 (3.6-5.0) mmol/L Chloride 100.9 (98-107) mmol/L Carbon Dioxide 29 (22-30) mmol/L BUN 10 (9-20) mg/dL Creatinine 0.6 L (0.8-1.3) mg/dL Glucose 239 H (75-100) mg/dL Calcium 8.6 (8.4-10.2) mg/dL - Imaging Additional Studies: 1) Plain x-ray of right foot reviewed. 2) Arterial dopplers of RLE were performed today but interpretation is pending.
--- NOTE | 2020-07-25 14:38 | Vascular Lab Report ---
DUPLEX DOPPLER LOWER EXTREMITY ARTERIAL, BILATERAL INDICATION / CLINICAL INFORMATION: peripheral arterial disease poor wound healing. TECHNIQUE: Arterial duplex examination of both lower extremities performed using B-mode, color flow and spectral Doppler assessment. COMPARISON: None. FINDINGS: RIGHT: Common Femoral Artery: PSV 142 cm/sec. Triphasic waveform. Proximal SFA: PSV 156 cm/sec. Monophasic waveform. Mid SFA: PSV 140 cm/sec. Monophasic waveform. Distal SFA: PSV 106 cm/sec. Monophasic waveform. Popliteal artery: PSV 112 cm/sec. Monophasic waveform. Posterior tibial artery: PSV 183 cm/sec. Monophasic waveform. Dorsalis Pedis Artery: PSV 94 cm/sec. Monophasic waveform. LEFT: Common Femoral Artery: PSV 78 cm/sec. Triphasic waveform. Proximal SFA: PSV 97 cm/sec. Triphasic waveform. Mid SFA: PSV 95 cm/sec. Triphasic waveform. Distal SFA: PSV 92 cm/sec. Triphasic waveform. Popliteal artery: PSV 47 cm/sec. Triphasic waveform. Postoperative change of left BKA. IMPRESSION: 1. Significant right lower extremity peripheral artery disease without evidence of hemodynamically si gnificant stenosis. Doppler Waveform: - Triphasic is normal. - Biphasic is abnormal if clear transition from triphasic signal along vascular tree. - Monophasic is abnormal. Signer Name: Сергей Garcia MD Signed: 07/25/2020 2:34 PM Workstation Name: [id number]
[2020-07-25] MEDS ORDERED: hydrALAZINE 20 MG/1 ML INJ IV PRN (17:07)
[2020-07-25] MEDS: INSULIN GLARGINE 100 UNITS/ML SUB-Q SCH ×2 (22:12)
[2020-07-25] MEDS: cloNIDine 0.1 MG TAB PO SCH (22:13)
[2020-07-26] MEDS: metroNIDAZOLE/NS 500 MG/100 ML 500 MG/100 ML BAG IV SCH ×4 (05:07→21:28)
[2020-07-26] MEDS: HYDROmorphone 1 MG/1 ML INJ IV PRN ×6 (05:08→20:59)
[2020-07-26] MEDS: INSULIN LISPRO 100 UNIT/ML VIAL 3 mL SUB-Q SCH ×4 (07:55→21:22)
[2020-07-26] MEDS: FAMOTIDINE 20 MG TAB PO SCH ×3 (07:56→21:00)
--- NOTE | 2020-07-26 07:56 | Consultation ---
History of Present Illness - Reason for Consult Consult date: 07/26/20 Right lower extremity peripheral vascular disease with foot wounds - History of Present Illness Patient with a history of peripheral vascular disease. On the left, the patient has a BKA which per patient was done at [place]. Per the patient, most of his prior care is to been done at [facility] [place]. He is homeless which is complicating his care. He presents with right leg pain. On examination, the patient has sequela of both arterial and venous disease. Nonpalpable pedal pulses. He has had prior transmetatarsal amputation. He has right lower extremity swelling, venous stasis ulcers and liposarcoma dermatosclerosis. Wounds are present on the foot and multiple locations. Past History Past Medical History: diabetes, PVD Past Surgical History: Other (Left BKA, right TMA) Medications and Allergies Allergies Allergy/AdvReac Type Severity Reaction Status Date / Time acetaminophen [From Vicodin] Allergy Unknown Verified 07/23/20 12:02 exenatide [From Byetta] Allergy Unknown Verified 07/23/20 12:02 hydrocodone [From Vicodin] Allergy Unknown Verified 07/23/20 12:02 pioglitazone [From Actos] Allergy Unknown Verified 07/23/20 12:02 Home Medications Medication Instructions Recorded Confirmed Last Taken Type cloNIDine [Catapres] 0.1 mg PO TID 07/26/20 07/26/20 Unknown History Active Meds: Active Medications Acetaminophen (Acetaminophen 325 Mg Tab) 650 mg PO Q4H PRN PRN Reason: Pain MILD(1-3)/Fever >100.5/[place] Clonidine HCl (Clonidine 0.1 Mg Tab) 0.1 mg PO TID [facility], [facility] Last Admin: 07/25/20 22:13 Dose: 0.1 mg Documented by: Famotidine (Famotidine 20 Mg Tab) 20 mg PO BID [facility], [facility]1983 Last Admin: 07/25/20 22:11 Dose: 20 mg Documented by: Hydralazine HCl (Hydralazine 20 Mg/1 Ml Inj) 10 mg IV Q6HR PRN PRN Reason: systolic greater than >160 Last Admin: 07/25/20 17:50 Dose: 10 mg Documented by: Hydromorphone HCl (Hydromorphone 1 Mg/1 Ml Inj) 0.5 mg IV Q3H PRN PRN Reason: Pain , Severe (7-10) Last Admin: 07/26/20 05:08 Dose: 0.5 mg Documented by: Metronidazole (Flagyl 500 Mg/100 Ml) 500 mg in 100 mls @ 100 mls/hr IV Q8HR [facility], [facility]1983 Stop: 08/03/20 06:59 Last Admin: 07/26/20 05:07 Dose: 100 mls/hr Documented by: Cefepime HCl (Cefepime/Ns 2 Gm/100 Ml) 2 gm in 100 mls @ 200 mls/hr IV Q12HR [facility], [facility]1983 Stop: 08/02/20 22:29 Last Admin: 07/25/20 23:17 Dose: 200 mls/hr Documented by: Ibuprofen (Ibuprofen 800 Mg Tab) 800 mg PO Q8H PRN PRN Reason: Pain, Mild (1-3) Last Admin: 07/23/20 21:13 Dose: 800 mg Documented by: Insulin Glargine (Insulin Glargine 100 Units/Ml) 30 units SUB-Q QHS [facility] Last Admin: 07/25/20 22:12 Dose: 30 units Documented by: Insulin Human Lispro (Insulin Lispro 100 Unit/Ml Vial 3 Ml) 0 unit SUB-Q ACHS [facility], [facility]; Protocol Last Admin: 07/25/20 22:27 Dose: 4 unit Documented by: Ondansetron HCl (Ondansetron 4 Mg/2 Ml Inj) 4 mg IV Q8H PRN PRN Reason: Nausea And Vomiting Sodium Chloride (Sodium Chloride 0.9% 10 Ml Flush Syringe) 10 ml IV BID [facility] Last Admin: 07/25/20 22:13 Dose: 10 ml Documented by: Sodium Chloride (Sodium Chloride 0.9% 10 Ml Flush Syringe) 10 ml IV PRN PRN PRN Reason: LINE FLUSH Review of Systems All systems: negative Exam - Constitutional Vitals: Temp Pulse Resp BP Pulse Ox 98.4 F 71 20 147/72 100 07/26/20 04:39 07/26/20 04:39 07/26/20 04:39 07/26/20 04:39 07/26/20 04:39 General appearance: Present: no acute distress - EENT Eyes: Present: EOM intact ENT: hearing intact - Neck Neck: Present: supple, normal ROM - Respiratory Respiratory effort: normal - Extremities Extremities: abnormal - Rectal Rectal Exam: deferred - Psychiatric Psychiatric: cooperative Results - Labs CBC & Chem 7: 07/25/20 05:03 07/25/20 05:03 Labs: Abnormal lab results 07/25/20 07/25/20 07/25/20 Range/Units 07:59 11:34 16:08 POC Glucose 201 H 203 H 259 H (70-105) mg/dL 07/25/20 Range/Units 21:13 POC Glucose 201 H (70-105) mg/dL Assessment and Plan Patient underwent arterial ultrasound which demonstrates disease. He was evaluated as well by Dr. Bee and is declining any interventions from Dr. Bee. Regardless, the patient will need optimization of his arterial inflow. A component of venous disease is also present as well as lymphedema. Both of these are longstanding in nature complicating his wound healing. Given his homeless status, we may attempt HBO for improved wound healing however, the patient may ultimately require amputation given the significant disease. We will schedule him for right lower extremity revascularization procedure tomorrow. He is agreeable to this.
[2020-07-26] MEDS: cloNIDine 0.1 MG TAB PO SCH ×4 (07:57→21:00)
--- NOTE | 2020-07-26 08:00 | Progress Note ---
Assessment and Plan Assessment and plan: 50-year-old male with history of severe peripheral arterial disease and diabetes comes in for right foot infection. Patient has left BKA. Patient also has right TMA. The distal part of the TMA is draining pus and also a heel ulcer. Patient has not been following with any bradycardia. Patient went 3 months ago and was given antibiotics. No follow-up with any PCP any physicians. Not attending any wound care clinic. Patient has had a foul-smelling discharge for 1 week. 07/24: Continue supportive care, Will consult Wound care and Surgery, will also get lower ext Doppler of the right lower ext. Case management consult as patient has social issues that needs to be address, such as where to stay 07/25: Continue supportive care. Awaiting re-eval from surgery after reviewing imaging, obtain arterial study considering poor wound healing. Venous doppler was negative. Adjust insulin for better blood glucose control. Further evaluation yesterday shows that the patient was refusing further surgery. I will order a Doppler of the arteries as patient possibly has underlying PAD. 07/26: Arterial Doppler of lower extremities shows disease. Revascularization is planned today to assist with wound healing. Continue current treatment ID and surgical input is noted. HBOT outpatient if possible case management has been consulted to help address social issues. MRI of lower extremity to better e valuate for osteomyelitis. (1) Cellulitis of right leg Current Visit: Yes Status: Acute Plan to address problem: Patient initiated on Unasyn and vancomycin. ID consult requested. (2) Osteomyelitis of right foot Current Visit: Yes Status: Acute Plan to address problem: Patient may need further amputation. Surgical consult requested. Also Ortho consult requested. (3) Hypertension Current Visit: Yes Status: Chronic Qualifiers: Hypertension type: essential hypertension Qualified Code(s): I10 - Essential (primary) hypertension Plan to address problem: Continue antihypertensives. (4) T2DM (type 2 diabetes mellitus) Current Visit: Yes Status: Chronic Plan to address problem: -Sliding scale coverage for now long-acting insulin. (5) PAD (6) Mild Hyponatremia (7) DVT prophylaxis Current Visit: Yes Status: Acute Plan to address problem: On heparin and GI prophylaxis History Interval history: Patient seen and examined no new complaints, still with pain in the legs. 3/10 intensity. Discussed with ID . Nursing staff this morning. Hospitalist Physical - Physical exam Narrative exam: General appearance: Present: no acute distress, well-nourished - EENT Eyes: Present: PERRL ENT: hearing intact, clear oral mucosa - Neck Neck: Present: supple, normal ROM - Respiratory Respiratory effort: normal Respiratory: bilateral: CTA - Cardiovascular Rhythm: regular Heart Sounds: Present: S1 & S2. Absent: rub, click - Extremities Extremities: pulses symmetrical, No edema, abnormal (Right foot ulcer and drainage on the TMA region. Also thick clear no heel ulcer. And thick callus p resent.) Peripheral Pulses: within normal limits - Abdominal General gastrointestinal: Present: soft, non-tender, non-distended, normal bowel sounds Male genitourinary: Present: normal - Integumentary Integumentary: Present: chronic vascular changes. - Musculoskeletal Musculoskeletal: gait normal, strength equal bilaterally - Psychiatric Psychiatric: appropriate mood/affect, intact judgment & insight - Neurologic Neurologic: CNII-XII intact, moves all extremities - Constitutional Vitals: Temp Pulse Resp BP Pulse Ox 98.0 F 78 18 156/87 94 07/26/20 07:52 07/26/20 07:52 07/26/20 07:52 07/26/20 07:57 07/26/20 07:52 General appearance: Present: no acute distress, well-nourished Results - Labs CBC & Chem 7: 07/25/20 05:03 07/25/20 05:03 Labs: Laboratory Last Values WBC 7.9 K/mm3 (4.5-11.0) 07/25/20 05:03 RBC 4.25 M/mm3 (3.65-5.03) 07/25/20 05:03 Hgb 11.5 gm/dl (11.8-15.2) L 07/25/20 05:03 Hct 35.8 % (35.5-45.6) 07/25/20 05:03 MCV 84 fl (84-94) 07/25/20 05:03 MCH 27 pg (28-32) L 07/25/20 05:03 MCHC 32 % (32-34) 07/25/20 05:03 RDW 18.8 % (13.2-15.2) H 07/25/20 05:03 Plt Count 388 K/mm3 (140-440) 07/25/20 05:03 Lymph % (Auto) 41.6 % (13.4-35.0) H 07/24/20 02:10 Geary % (Auto) 6.4 % (0.0-7.3) 07/24/20 02:10 Eos % (Auto) 2.3 % (0.0-4.3) 07/24/20 02:10 Baso % (Auto) 0.3 % (0.0-1.8) 07/24/20 02:10 Lymph # (Auto) 3.3 K/mm3 (1.2-5.4) 07/24/20 02:10 Geary # (Auto) 0.5 K/mm3 (0.0-0.8) 07/24/20 02:10 Eos # (Auto) 0.2 K/mm3 (0.0-0.4) 07/24/20 02:10 Baso # (Auto) 0.0 K/mm3 (0.0-0.1) 07/24/20 02:10 Seg Neutrophils % 49.4 % (40.0-70.0) 07/24/20 02:10 Seg Neutrophils # 4.0 K/mm3 (1.8-7.7) 07/24/20 02:10 PT 13.7 Sec. (12.2-14.9) 07/23/20 14:30 INR 1.07 (0.87-1.13) 07/23/20 14:30 APTT 31.1 Sec. (24.2-36.6) 07/23/20 14:30 Sodium 134 mmol/L (137-145) L 07/25/20 05:03 Potassium 4.1 mmol/L (3.6-5.0) 07/25/20 05:03 Chloride 100.9 mmol/L (98-107) 07/25/20 05:03 Carbon Dioxide 29 mmol/L (22-30) 07/25/20 05:03 Anion Gap 8 mmol/L 07/25/20 05:03 BUN 10 mg/dL (9-20) 07/25/20 05:03 Creatinine 0.6 mg/dL (0.8-1.3) L 07/25/20 05:03 Estimated GFR > 60 ml/min 07/25/20 05:03 BUN/Creatinine Ratio 17 % 07/25/20 05:03 Glucose 239 mg/dL (75-100) H 07/25/20 05:03 POC Glucose 119 mg/dL (70-105) H 07/26/20 07:54 Hemoglobin A1c 9.6 % (4-6) H 07/24/20 00:46 Lactic Acid 1.20 mmol/L (0.7-2.0) 07/23/20 14:30 Calcium 8.6 mg/dL (8.4-10.2) 07/25/20 05:03 Magnesium 2.10 mg/dL (1.7-2.3) 07/23/20 14:30 Total Bilirubin 0.30 mg/dL (0.1-1.2) 07/24/20 02:10 AST 19 units/L (5-40) 07/24/20 02:10 ALT 25 units/L (7-56) 07/24/20 02:10 Alkaline Phosphatase 127 units/L (35-129) 07/24/20 02:10 C-Reactive Protein 1.30 mg/dL (0.00-1.30) 07/25/20 05:03 NT-Pro-B Natriuret Pep 415.0 pg/mL (0-450) 07/23/20 14:30 Total Protein 7.1 g/dL (6.3-8.2) 07/24/20 02:10 Albumin 3.1 g/dL (3.9-5) L 07/24/20 02:10 Albumin/Globulin Ratio 0.8 % 07/24/20 02:10 Microbiology: Microbiology 07/23/20 14:38 Peripheral/Venous Blood Culture - Preliminary NO GROWTH AFTER 48 HOURS 07/23/20 14:30 Peripheral/Venous Blood Culture - Preliminary NO GROWTH AFTER 48 HOURS Fraser/IV: Voiding Method Toilet IV Catheter Type [Left Upper Mid-line arm] IV Catheter Type [Left Peripheral IV Antecubital] IV Catheter Type [Right Wrist] INT / Saline Lock Active Medications - Current Medications Current Medications: Generic Name Dose Route Start Last Admin Trade Name Freq PRN Reason Stop Dose Admin Acetaminophen 650 mg 07/23/20 21:47 Acetaminophen 325 Mg Tab PO Q4H PRN Pain MILD(1-3)/Fever >100.5/[place] Clonidine HCl 0.1 mg 07/25/20 20:00 07/26/20 07:57 Clonidine 0.1 Mg Tab PO 0.1 mg TID IRMA Administration Famotidine 20 mg 07/23/20 22:00 07/26/20 07:56 Famotidine 20 Mg Tab PO 20 mg BID IRMA Administration Hydralazine HCl 10 mg 07/25/20 17:07 07/25/20 17:50 Hydralazine 20 Mg/1 Ml Inj IV 10 mg Q6HR PRN Administration systolic greater than >160 Hydromorphone HCl 0.5 mg 07/23/20 21:47 07/26/20 05:08 Hydromorphone 1 Mg/1 Ml Inj IV 0.5 mg Q3H PRN Administration Pain , Severe (7-10) Metronidazole 500 mg in 100 mls @ 100 mls/hr 07/24/20 14:00 07/26/20 05:07 Flagyl 500 Mg/100 Ml IV 08/03/20 06:59 100 mls/hr Q8HR IRMA Administration Cefepime HCl 2 gm in 100 mls @ 200 mls/hr 07/24/20 12:30 07/25/20 23:17 Cefepime/Ns 2 Gm/100 Ml IV 08/02/20 22:29 200 mls/hr Q12HR IRMA Administration Ibuprofen 800 mg 07/23/20 21:03 07/23/20 21:13 Ibuprofen 800 Mg Tab PO 800 mg Q8H PRN Administration Pain, Mild (1-3) Insulin Glargine 30 units 07/25/20 22:00 07/25/20 22:12 Insulin Glargine 100 Units/Ml SUB-Q 30 units QHS IRMA Administration Insulin Human Lispro 0 unit 07/23/20 22:00 07/26/20 07:55 Insulin Lispro 100 Unit/Ml Vial 3 Ml SUB-Q Not Given ACHS [facility] Protocol Ondansetron HCl 4 mg 07/23/20 21:47 Ondansetron 4 Mg/2 Ml Inj IV Q8H PRN Nausea And Vomiting Sodium Chloride 10 ml 07/23/20 22:00 07/25/20 22:13 Sodium Chloride 0.9% 10 Ml Flush Syringe IV 10 ml BID IRMA Administration Sodium Chloride 10 ml 07/23/20 21:47 Sodium Chloride 0.9% 10 Ml Flush Syringe IV PRN PRN LINE FLUSH Nutrition/Malnutrition Assess - Dietary Evaluation Nutrition/Malnutrition Findings: Nutrition Notes Start: 07/24/20 15:08 Freq: Status: Active Protocol: Document 07/25/20 12:10 NI (Rec: 07/25/20 12:25 NI [id number]) Co-Sign 07/25/20 12:10 LP Nutrition Notes Initial or Follow up Assessment Current Diagnosis Diabetes,Hypertension Other Pertinent Diagnosis PVD, right heal ulcer, L BKA, previous R TMA Current Diet Cardiac, Consistent CHO Labs/Tests BG 239 A1c 9.6% Pertinent Medications Humalog 6 units Height 6 ft 2 in Weight 112 kg Lead Body Weight (kg) 86.36 BMI 31.6 Weight Status Obese Subjective/Other Information F/u diet education. Pt asked for more food. No clinical malnutrition but may lack essential nutrients due to fast food diet. Case management was contacted per RN. Offered pt salads with meals and ONS high protein. Diet education may not be appropriate due to food insecurity. Percent of energy/protein needs met: 100%/100% Burn Absent Trauma Absent GI Symptoms None Current % PO Good (75-100%) Minimum of two criteria No #1 Nutrition Diagnosis Other: (Specify in comment below) Comments: Poor nutrition quality of life Etiology homelessness As Evidenced by Signs and Symptoms pt's A1c is 9.6% and pt reported homeless and reliance on fast food. Is patient on ventilator? No Is Patient Ambulatory and/or Out of Bed No REE-([facility]-confined to bed) 2469.060 Kcal/Kg value to use for calculation 18 Approximate Energy Requirements Using 2016 kcal/Kg Calculation Used for Recommendations Kcal/kg Additional Notes Protein: 108-130g (1.25-1.5 g/ kg IBW 86.36) Fluid: 1ml/kcal Nutrition Intervention Change Diet Order: Continue Add Supplement/Snack (indicate name/kcal Ensure High Protein (BID) /protein ) Provides kCal: 320 Provides Protein (gm) 32 Goal #1 ONS tolerance Goal #2 Assist with BG control Goal #3 Support wound healing Anticipated Discharge Needs: Referral to long term, food assistance program ([facility]) Low and consistent carbohydrate diet Follow-Up By: 07/27/20 Additional Comments F/u diet education, intakes, BG
[2020-07-26] MEDS: CEFEPIME/NS 2 GM/100 ML 2 GM/100 ML BAG IV SCH ×2 (09:30→20:59)
--- NOTE | 2020-07-26 11:03 | Progress Note ---
Assessment and Plan Cultures: Blood cultures no growth today Assessment: 50 years old male with history of uncontrolled diabetes, hypertension, severe peripheral vascular disease, previous left BKA, previous right TMA, admitted on 07/22/2020 secondary to distal right TMA stump draining foul-smelling purulence associated with pain and subjective fever: #Right TMA stump infection/osteomyelitis?: Patient has no records in this h ospital. S/p TMA of a right toe 3-4 weeks ago at [place]. Unknown etiology. CRP 1.3. On exam per wound care -right plantar foot diabetic ulcer, measures 8 x 7 x 0.2 cm. Wound bed is red. Moderate amount of serosanguineous drainage, no odor noted at this time. Periwound skin is moist and macerated, with scar tissue noted. #Diabetes mellitus: Uncontrolled, A1c 9.6. #Peripheral vascular disease: With history of revascularization. Art Us significant stenosis, pt is to have revascularization Recommendations: -MRI right foot ordered -Please obtain deep wound cx -Surgery on board -Vascular planning revascularization -Continue cefepime 2 g IV every 12 hours -Continue metronidazole 500 g IV every 8 hours D/w attending Will follow. Sruthi Valenzuela MD Infectious Diseases [employer] [facility] ([facility]) M [phone] O [phone] Subjective Date of service: 07/26/20 Principal diagnosis: Osteomyelitis Interval history: Feels ok c/o right foot pain no fever Objective - Exam Narrative Exam: General appearance: Alert in NAD Eyes: anicteric sclerae, moist conjunctivae; no lid-lag; PERRLA HENT: Normocephalic, Atraumatic; normal external ears, nares open, oropharynx clear Neck: supple, tracheal midline, no JVD Lungs: CTA, with normal respiratory effort and no intercostal retractions CV: RRR no murmur Abdomen: Soft, non-tender; no masses or hepatosplenomegaly Extremities: Left below-knee amputation stump healed, right TMA with wound covered with dressing Skin: No rash. Psych: no agitated Neuro: alert and oriented x 3. Moving all extermities - Constitutional Vitals: Vital Signs Temp Pulse Resp BP Pulse Ox 98.0 F 78 18 156/87 94 07/26/20 07:52 07/26/20 07:52 07/26/20 07:52 07/26/20 07:57 07/26/20 07:52 Temperature -Last 24 Hours Temperature 98.0 F Temperature 98.4 F Temperature 98.2 F Temperature 97.7 F Temperature 98.7 F Temperature 98.4 F - Labs CBC & Chem 7: 07/25/20 05:03 07/25/20 05:03 Labs: Abnormal lab results 07/25/20 07/25/20 07/25/20 Range/Units 11:34 16:08 21:13 POC Glucose 203 H 259 H 201 H (70-105) mg/dL 07/26/20 Range/Units 07:54 POC Glucose 119 H (70-105) mg/dL
[2020-07-26] MEDS ORDERED: INSULIN LISPRO 100 UNIT/ML SUB-Q ONE (21:17)
[2020-07-26] MEDS: INSULIN GLARGINE 100 UNITS/ML SUB-Q SCH (21:20)
[2020-07-27] MEDS: HYDROmorphone 1 MG/1 ML INJ IV PRN ×7 (00:13→23:23)
[2020-07-27] MEDS: metroNIDAZOLE/NS 500 MG/100 ML 500 MG/100 ML BAG IV SCH (06:17)
[2020-07-27 06:21] LABS: Hematocrit 33.1 % (35.5-45.6); Hemoglobin 10.5 gm/dl (11.8-15.2); Mean Corpuscular HGB Conc 32 % (32-34); Mean Corpuscular Volume 83 fl (84-94); Platelet Count 390 K/mm3 (140-440); Red Blood Count 3.98 M/mm3 (3.65-5.03); Red Cell Distribution Width 18.7 % (13.2-15.2)
[2020-07-27 06:39] LABS: BUN/Creatinine Ratio 20; Blood Urea Nitrogen 16 mg/dL (9-20); Calcium 9.4 mg/dL (8.4-10.2); Hemolysis Index 4
[2020-07-27] MEDS: INSULIN LISPRO 100 UNIT/ML VIAL 3 mL SUB-Q SCH ×4 (07:45→22:23)
--- NOTE | 2020-07-27 08:24 | Progress Note ---
Assessment and Plan Assessment and plan: 50-year-old male with history of severe peripheral arterial disease and diabetes comes in for right foot infection. Patient has left BKA. Patient also has right TMA. The distal part of the TMA is draining pus and also a heel ulcer. Patient has not been following with any bradycardia. Patient went 3 months ago and was given antibiotics. No follow-up with any PCP any physicians. Not attending any wound care clinic. Patient has had a foul-smelling discharge for 1 week. 07/24: Continue supportive care, Will consult Wound care and Surgery, will also get lower ext Doppler of the right lower ext. Case management consult as patient has social issues that needs to be address, such as where to stay 07/25: Continue supportive care. Awaiting re-eval from surgery after reviewing imaging, obtain arterial study considering poor wound healing. Venous doppler was negative. Adjust insulin for better blood glucose control. Further evaluation yesterday shows that the patient was refusing further surgery. I will order a Doppler of the arteries as patient possibly has underlying PAD. 07/26: Arterial Doppler of lower extremities shows disease. Revascularization is planned today to assist with wound healing. Continue current treatment ID and surgical input is noted. HBOT outpatient if possible case management has been consulted to help address social issues. MRI of lower extremity to better e valuate for osteomyelitis. 07/27: For revascularization today. Awaiting MRI study. Discussed with infectious disease physician Dr. Turner (1) Cellulitis of right leg Current Visit: Yes Status: Acute Plan to address problem: Patient initiated on Unasyn and vancomycin. ID consult requested. (2) Osteomyelitis of right foot Current Visit: Yes Status: Acute Plan to address problem: Patient may need further amputation. Surgical consult requested. Also Ortho consult requested. (3) Hypertension Current Visit: Yes Status: Chronic Qualifiers: Hypertension type: essential hypertension Qualified Code(s): I10 - Essential (primary) hypertension Plan to address problem: Continue antihypertensives. (4) T2DM (type 2 diabetes mellitus) Current Visit: Yes Status: Chronic Plan to address problem: -Sliding scale coverage for now long-acting insulin. (5) PAD (6) Mild Hyponatremia (7) DVT prophylaxis Current Visit: Yes Status: Acute Plan to address problem: On heparin and GI prophylaxis History Interval history: Patient seen and examined no new complaints, still with pain in the legs. 09/12 intensity. Discussed with ID . Nursing staff this morning. Hospitalist Physical - Physical exam Narrative exam: General appearance: Present: no acute distress, well-nourished - EENT Eyes: Present: PERRL ENT: hearing intact, clear oral mucosa - Neck Neck: Present: supple, normal ROM - Respiratory Respiratory effort: normal Respiratory: bilateral: CTA - Cardiovascular Rhythm: regular Heart Sounds: Present: S1 & S2. Absent: rub, click - Extremities Extremities: pulses symmetrical, No edema, abnormal (Right foot ulcer and drainage on the TMA region. Also thick clear no heel ulcer. And thick callus present.) Peripheral Pulses: within normal limits - Abdominal General gastrointestinal: Present: soft, non-tender, non-distended, normal bowel sounds Male genitourinary: Present: normal - Integumentary Integumentary: Present: chronic vascular changes. - Musculoskeletal Musculoskeletal: gait normal, strength equal bilaterally - Psychiatric Psychiatric: appropriate mood/affect, intact judgment & insight - Neurologic Neurologic: CNII-XII intact, moves all extremities - Constitutional Vitals: Temp Pulse Resp BP Pulse Ox 97.4 F L 65 20 140/89 100 07/27/20 07:39 07/27/20 07:39 07/27/20 07:39 07/27/20 07:39 07/27/20 07:39 General appearance: Present: no acute distress, well-nourished Results - Labs CBC & Chem 7: 07/27/20 05:52 07/27/20 05:52 Labs: Laboratory Last Values WBC 7.4 K/mm3 (4.5-11.0) 07/27/20 05:52 RBC 3.98 M/mm3 (3.65-5.03) 07/27/20 05:52 Hgb 10.5 gm/dl (11.8-15.2) L 07/27/20 05:52 Hct 33.1 % (35.5-45.6) L 07/27/20 05:52 MCV 83 fl (84-94) L 07/27/20 05:52 MCH 26 pg (28-32) L 07/27/20 05:52 MCHC 32 % (32-34) 07/27/20 05:52 RDW 18.7 % (13.2-15.2) H 07/27/20 05:52 Plt Count 390 K/mm3 (140-440) 07/27/20 05:52 Lymph % (Auto) 41.6 % (13.4-35.0) H 07/24/20 02:10 Wilkinson % (Auto) 6.4 % (0.0-7.3) 07/24/20 02:10 Eos % (Auto) 2.3 % (0.0-4.3) 07/24/20 02:10 Baso % (Auto) 0.3 % (0.0-1.8) 07/24/20 02:10 Lymph # (Auto) 3.3 K/mm3 (1.2-5.4) 07/24/20 02:10 Wilkinson # (Auto) 0.5 K/mm3 (0.0-0.8) 07/24/20 02:10 Eos # (Auto) 0.2 K/mm3 (0.0-0.4) 07/24/20 02:10 Baso # (Auto) 0.0 K/mm3 (0.0-0.1) 07/24/20 02:10 Seg Neutrophils % 49.4 % (40.0-70.0) 07/24/20 02:10 Seg Neutrophils # 4.0 K/mm3 (1.8-7.7) 07/24/20 02:10 PT 13.7 Sec. (12.2-14.9) 07/23/20 14:30 INR 1.07 (0.87-1.13) 07/23/20 14:30 APTT 31.1 Sec. (24.2-36.6) 07/23/20 14:30 Sodium 135 mmol/L (137-145) L 07/27/20 05:52 Potassium 4.6 mmol/L (3.6-5.0) 07/27/20 05:52 Chloride 101.4 mmol/L (98-107) 07/27/20 05:52 Carbon Dioxide 28 mmol/L (22-30) 07/27/20 05:52 Anion Gap 10 mmol/L 07/27/20 05:52 BUN 16 mg/dL (9-20) 07/27/20 05:52 Creatinine 0.8 mg/dL (0.8-1.3) 07/27/20 05:52 Estimated GFR > 60 ml/min 07/27/20 05:52 BUN/Creatinine Ratio 20 % 07/27/20 05:52 Glucose 187 mg/dL (75-100) H 07/27/20 05:52 POC Glucose 174 mg/dL (70-105) H 07/27/20 07:37 Hemoglobin A1c 9.6 % (4-6) H 07/24/20 00:46 Lactic Acid 1.20 mmol/L (0.7-2.0) 07/23/20 14:30 Calcium 9.4 mg/dL (8.4-10.2) 07/27/20 05:52 Magnesium 2.10 mg/dL (1.7-2.3) 07/23/20 14:30 Total Bilirubin 0.30 mg/dL (0.1-1.2) 07/24/20 02:10 AST 19 units/L (5-40) 07/24/20 02:10 ALT 25 units/L (7-56) 07/24/20 02:10 Alkaline Phosphatase 127 units/L (35-129) 07/24/20 02:10 C-Reactive Protein 1.30 mg/dL (0.00-1.30) 07/25/20 05:03 NT-Pro-B Natriuret Pep 415.0 pg/mL (0-450) 07/23/20 14:30 Total Protein 7.1 g/dL (6.3-8.2) 07/24/20 02:10 Albumin 3.1 g/dL (3.9-5) L 07/24/20 02:10 Albumin/Globulin Ratio 0.8 % 07/24/20 02:10 Microbiology: Microbiology 07/23/20 14:38 Peripheral/Venous Blood Culture - Preliminary NO GROWTH AFTER 72 HOURS 07/23/20 14:30 Peripheral/Venous Blood Culture - Preliminary NO GROWTH AFTER 72 HOURS Fraser/IV: Voiding Method Toilet IV Catheter Type [Left Upper Mid-line arm] IV Catheter Type [Left Peripheral IV Antecubital] IV Catheter Type [Right Wrist] INT / Saline Lock Active Medications - Current Medications Current Medications: Generic Name Dose Route Start Last Admin Trade Name Freq PRN Reason Stop Dose Admin Acetaminophen 650 mg 07/23/20 21:47 Acetaminophen 325 Mg Tab PO Q4H PRN Pain MILD(1-3)/Fever >100.5/[place] Clonidine HCl 0.1 mg 07/25/20 20:00 07/26/20 21:00 Clonidine 0.1 Mg Tab PO 0.1 mg TID IRMA Administration Famotidine 20 mg 07/23/20 22:00 07/26/20 21:00 Famotidine 20 Mg Tab PO 20 mg BID IRMA Administration Hydralazine HCl 10 mg 07/25/20 17:07 07/25/20 17:50 Hydralazine 20 Mg/1 Ml Inj IV 10 mg Q6HR PRN Administration systolic greater than >160 Hydromorphone HCl 0.5 mg 07/23/20 21:47 07/27/20 06:32 Hydromorphone 1 Mg/1 Ml Inj IV 0.5 mg Q3H PRN Administration Pain , Severe (7-10) Metronidazole 500 mg in 100 mls @ 100 mls/hr 07/24/20 14:00 07/27/20 06:17 Flagyl 500 Mg/100 Ml IV 08/03/20 06:59 100 mls/hr Q8HR IRMA Administration Cefepime HCl 2 gm in 100 mls @ 200 mls/hr 07/24/20 12:30 07/26/20 20:59 Cefepime/Ns 2 Gm/100 Ml IV 08/02/20 22:29 200 mls/hr Q12HR IRMA Administration Ibuprofen 800 mg 07/23/20 21:03 07/23/20 21:13 Ibuprofen 800 Mg Tab PO 800 mg Q8H PRN Administration Pain, Mild (1-3) Insulin Glargine 30 units 07/25/20 22:00 07/26/20 21:20 Insulin Glargine 100 Units/Ml SUB-Q 30 units QHS IRMA Administration Insulin Human Lispro 0 unit 07/23/20 22:00 07/26/20 21:22 Insulin Lispro 100 Unit/Ml Vial 3 Ml SUB-Q 4 unit ACHS IRMA Administration Protocol Ondansetron HCl 4 mg 07/23/20 21:47 Ondansetron 4 Mg/2 Ml Inj IV Q8H PRN Nausea And Vomiting Sodium Chloride 10 ml 07/23/20 22:00 07/26/20 21:02 Sodium Chloride 0.9% 10 Ml Flush Syringe IV 10 ml BID IRMA Administration Sodium Chloride 10 ml 07/23/20 21:47 Sodium Chloride 0.9% 10 Ml Flush Syringe IV PRN PRN LINE FLUSH Nutrition/Malnutrition Assess - Dietary Evaluation Nutrition/Malnutrition Findings: Nutrition Notes Start: 07/24/20 15:08 Freq: Status: Active Protocol: Document 07/25/20 12:10 NI (Rec: 07/25/20 12:25 NI [id number]) Co-Sign 07/25/20 12:10 LP Nutrition Notes Initial or Follow up Assessment Current Diagnosis Diabetes,Hypertension Other Pertinent Diagnosis PVD, right heal ulcer, L BKA, previous R TMA Current Diet Cardiac, Consistent CHO Labs/Tests BG 239 A1c 9.6% Pertinent Medications Humalog 6 units Height 6 ft 2 in Weight 112 kg [place] Body Weight (kg) 86.36 BMI 31.6 Weight Status Obese Subjective/Other Information F/u diet education. Pt asked for more food. No clinical malnutrition but may lack essential nutrients due to fast food diet. Case management was contacted per RN. Offered pt salads with meals and ONS high protein. Diet education may not be appropriate due to food insecurity. Percent of energy/protein needs met: 100%/100% Burn Absent Trauma Absent GI Symptoms None Current % PO Good (75-100%) Minimum of two criteria No #1 Nutrition Diagnosis Other: (Specify in comment below) Comments: Poor nutrition quality of life Etiology homelessness As Evidenced by Signs and Symptoms pt's A1c is 9.6% and pt reported homeless and reliance on fast food. Is patient on ventilator? No Is Patient Ambulatory and/or Out of Bed No REE-([facility]-confined to bed) 2469.060 Kcal/Kg value to use for calculation 18 Approximate Energy Requirements Using 2016 kcal/Kg Calculation Used for Recommendations Kcal/kg Additional Notes Protein: 108-130g (1.25-1.5 g/ kg IBW 86.36) Fluid: 1ml/kcal Nutrition Intervention Change Diet Order: Continue Add Supplement/Snack (indicate name/kcal Ensure High Protein (BID) /protein ) Provides kCal: 320 Provides Protein (gm) 32 Goal #1 ONS tolerance Goal #2 Assist with BG control Goal #3 Support wound healing Anticipated Discharge Needs: Referral to jail, food assistance program ([facility]) Low and consistent carbohydrate diet Follow-Up By: 07/27/20 Additional Comments F/u diet education, intakes, BG
[2020-07-27] MEDS: CEFEPIME/NS 2 GM/100 ML 2 GM/100 ML BAG IV SCH ×2 (09:13→22:03)
[2020-07-27] MEDS ORDERED: LIDOCAINE (2%) 20 MG/1 ML VIAL 20 ML MDV INFILTRATI ONE (10:45)
[2020-07-27] MEDS ORDERED: HEPARIN/NS 5000 UNIT/500ML 1,500 ML IR ONE (10:45)
[2020-07-27] MEDS ORDERED: HEPARIN 10,000 UNITS/10 ML VIAL ONE (10:45)
[2020-07-27] MEDS: FAMOTIDINE 20 MG TAB PO SCH ×2 (10:49→22:03)
[2020-07-27] MEDS: cloNIDine 0.1 MG TAB PO SCH ×3 (10:49→22:04)
--- NOTE | 2020-07-27 11:14 | Magnetic Resonance Report ---
MR CARLOS nonjoint RT wo/w con INDICATION / CLINICAL INFORMATION: right foot TMA now with wound. TECHNIQUE: Multiplanar, multisequence MR images were obtained. COMPARISON: None available. FINDINGS: There is diffuse soft tissue edema deep and superficially. No drainable fluid collection is seen. Abn ormal signal is seen in the distal half of the first metatarsal and in the distal portion of the se[place] nd metatarsal. Mild increased signal is seen in the proximal portion of the fourth metatarsal. Abnorm al signal is seen in the posterior third of the calcaneus with a soft tissue wound present. Following the administration of intravenous contrast, the areas described above all enhance. The Achilles tend on is completely torn and retracted. Degenerative changes seen in the midfoot. IMPRESSION: 1. Abnormal signal in the first, second and fourth metatarsals with enhancement following contrast ad ministration. These findings are consistent with osteomyelitis 2. Abnormal signal in the posterior third of the calcaneus with a soft tissue wound present. There is enhancement following contrast administration indicating probable osteomyelitis 3. Tear of the distal Achilles tendon with retraction Signer Name: Yasmani Jolly MD FACR Signed: 07/27/2020 11:10 AM Workstation Name: [id number]
[2020-07-27] MEDS ORDERED: SODIUM CHLORIDE 0.9% 500 ML 500 ML ONE ×2 (11:35→14:05)
[2020-07-27] MEDS: fentaNYL 100 MCG/2 ML INJ ONE ×2 (11:46→11:53)
[2020-07-27] MEDS: MIDAZOLAM 2 MG/2 ML INJ ONE ×2 (11:53→12:02)
[2020-07-27] MEDS ORDERED: fentaNYL 100 MCG/2 ML INJ ONE (12:02)
[2020-07-27] MEDS ORDERED: MIDAZOLAM 2 MG/2 ML INJ ONE (12:02)
[2020-07-27] MEDS ORDERED: HYDROmorphone 1 MG/1 ML INJ ONE (12:03)
[2020-07-27] MEDS ORDERED: SODIUM CHLORIDE 0.9% 1000 ML 1,000 ML ONE (12:06)
[2020-07-27] MEDS ORDERED: NITROGLYCERIN DRIP 50 MG/250 ML BOTTLE ONE (12:06)
[2020-07-27] MEDS ORDERED: VERAPAMIL 5 MG/2 ML INJ ONE (12:07)
--- NOTE | 2020-07-27 13:12 | Progress Note ---
Assessment and Plan Cultures: Blood cultures no growth today Assessment: 50 years old male with history of uncontrolled diabetes, hypertension, severe peripheral vascular disease, previous left BKA, previous right TMA, admitted on 07/22/2020 secondary to distal right TMA stump draining foul-smelling purulence associated with pain and subjective fever: #Right TMA stump infection/osteomyelitis?: Patient has no records in this h ospital. S/p TMA of a right toe 3-4 weeks ago at [place]. Unknown etiology. CRP 1.3. On exam per wound care -right plantar foot diabetic ulcer, measures 8 x 7 x 0.2 cm. Wound bed is red. Moderate amount of serosanguineous drainage, no odor noted at this time. Periwound skin is moist and macerated, with scar tissue noted. MRI with osteomyelitis on 1st, 2nd, 4th metatarsals and 3rd calcaneus. #Diabetes mellitus: Uncontrolled, A1c 9.6. #Peripheral vascular disease: With history of revascularization. Art Us significant stenosis, pt is to have revascularization Recommendations: -Please obtain deep wound cx -pending -Surgery on board -Vascular planning revascularization -Continue cefepime 2 g IV every 12 hours -Stop metronidazole -Start vancomycin w PK consult -Anticipate to d/c on ceftriaxone 2g IVqday and vancomycin 1 g IV q 12hour for 6 weeks 09/04/2020 or since he is homeless then for easier administration ceftriaxone 2g IVqday and daptomycin 600 mg IV q day for 6 weeks until 09/04/2020 Will follow. Sruthi Valenzuela MD Infectious Diseases Drywall [employer] [facility] M [phone] O [phone] Subjective Date of service: 07/27/20 Principal diagnosis: Osteomyelitis Interval history: Feels ok c/o right foot pain no fever Objective - Exam Narrative Exam: General appearance: Alert in NAD Eyes: anicteric sclerae, moist conjunctivae; no lid-lag; PERRLA HENT: Normocephalic, Atraumatic; normal external ears, nares open, oropharynx clear Neck: supple, tracheal midline, no JVD Lungs: CTA, with normal respiratory effort and no intercostal retractions CV: RRR no murmur Abdomen: Soft, non-tender; no masses or hepatosplenomegaly Extremities: Left below-knee amputation stump healed, right TMA with wound covered with dressing Skin: No rash. Psych: no agitated Neuro: alert and oriented x 3. Moving all extermities - Constitutional Vitals: Vital Signs Temp Pulse Resp BP Pulse Ox 97.4 F L 65 20 140/89 100 07/27/20 07:39 07/27/20 07:39 07/27/20 07:39 07/27/20 07:39 07/27/20 07:39 Temperature -Last 24 Hours Temperature 97.4 F Temperature 98.0 F Temperature 98.5 F Temperature 98.7 F Temperature 98.4 F - Labs CBC & Chem 7: 07/27/20 05:52 07/27/20 05:52 Labs: Abnormal lab results 07/26/20 07/26/20 07/27/20 Range/Units 16:22 21:15 05:52 Hgb 10.5 L (11.8-15.2) gm/dl Hct 33.1 L (35.5-45.6) % MCV 83 L (84-94) fl MCH 26 L (28-32) pg RDW 18.7 H (13.2-15.2) % Sodium (137-145) mmol/L Glucose (75-100) mg/dL POC Glucose 155 H 237 H (70-105) mg/dL 07/27/20 07/27/20 Range/Units 05:52 07:37 Hgb (11.8-15.2) gm/dl Hct (35.5-45.6) % MCV (84-94) fl MCH (28-32) pg RDW (13.2-15.2) % Sodium 135 L (137-145) mmol/L Glucose 187 H (75-100) mg/dL POC Glucose 174 H (70-105) mg/dL
--- NOTE | 2020-07-27 13:32 | Operative Report ---
Operative Report Operative Report: Date of Procedure: 07/27/2020 Pre-operative Diagnosis: Peripheral Vascular Disease with Right Lower Extremity Ulceration Post-operative Diagnosis: Same Procedure(s): 1. Ultrasound-Guided Access Left Common Femoral Artery 2. Diagnostic Aortogram (No Previous Films for Comparison) 3. Diagnostic Right Lower Extremity Angiogram (No Previous Films for Comparison) 4. Atherectomy with Angioplasty of Right Anterior Tibial Artery with CSI 1.25 Solid diamondback Orbital Atherectomy Catheter 3.5 x 220 Ringling Balloon and 4.0 x 250 IN.PACT Drug-Coated Balloon 5. Angioplasty of Right Posterior Tibial Artery with 3.5 x 220 Ringling Balloon 6. Closure of Left Femoral Arteriotomy with ProGlide Closure Device 7. Radiologic Supervision with Interpretation 8. Monitored Moderate Sedation (Total Anesthesia Time: 58 Minutes) Surgeon: Uriel Roy M.D. Caul Fat Puller: Shaan Anesthesia: Monitored Moderate Sedation Total Anesthesia Time: 58 Minutes EBL: Minimal Counts: Correct Complications: None Condition: Stable Specimen: None Indication: The patient is a 50-year-old male with a history of peripheral vascular disease who has a left below-knee amputation and a right transmetatarsal amputation. He has nonhealing ulcerations of the right foot and an arterial duplex of the right lower extremity demonstrating peripheral vascular disease. He is in need of a diagnostic angiogram with possible intervention to assist with healing of his right foot wounds. He was given the risk, benefits, and alternative procedures and consented to the procedure. Angiographic Findings: The diagnostic aortogram revealed that the aorta was patent without evidence of aneurysmal dilatation or flow-limiting stenosis. The right lower extremity angiogram revealed that the right common iliac artery, hypogastric artery, and external iliac artery were all patent without evidence of flow-limiting stenosis. The common femoral artery, profunda artery, and superficial femoral artery were patent without significant flow-limiting stenosis. The popliteal artery was patent without evidence of flow-limiting stenosis. The patient had three-vessel runoff and the anterior tibial artery was diffusely diseased with multiple segments of stenosis ranging from 75 to 90% stenosis. The artery was continuous into the foot as the dorsalis pedis artery. The patient's pedal arch was incomplete however the dorsalis pedis artery did provide significant flow to the midfoot. The tibioperoneal trunk was patent without significant flow- limiting stenosis. The peroneal artery appeared to be patent without evidence of significant flow-limiting stenosis. The posterior tibial artery was patent throughout the majority of his course without significant flow-limiting stenosis however at the ankle there was approximately 85 to 90% stenosis and what appeared to be a short segment occlusion just distal to that stenosis. The ar dani then went on to supply significant flow to the hindfoot and again it was noted that there was an incomplete pedal arch. After intervention there was less than 10% residual stenosis within the anterior tibial artery. There was less than 10% residual stenosis in the posterior tibial artery and there was brisk flow into both the hindfoot and midfoot from both arteries. Description of Procedure: The patient was brought to the Atm Servicer and laid in supine position. After timeout was performed his left groin was prepped and draped in normal sterile fashion. Ultrasound was used to identify the left common femoral artery and confirm patency. Once patency was confirmed the overlying skin and soft tissue was anesthetized with lidocaine. An 11 blade was used to make a small stab incision and then a 21-gauge micropuncture needle was used with ultrasound guidance into the left common femoral artery. A 0.018 micropuncture wire was advanced to the artery and after removing the needle the micropuncture sheath was advanced by Seldinger technique. The inner cannula and wire were removed and a 0.035 Bentson wire was advanced to the aorta. The micropuncture sheath was removed and exchanged for a 5 Fijian sheath by Seldinger technique. An Omni Flush catheter was advanced into the infrarenal aorta and a diagnostic aortogram was performed with the previously described findings. The Bentson wire and Omni Flush catheter were advanced up and over the bifurcation and a diagnostic right lower extremity angiogram was performed with the previously described findings. The Bentson wire was then advanced into the distal popliteal artery and the 5 Fijian sheath was exchanged for 6 Fijian 90 cm destination sheath by Seldinger technique. At this point the patient was systemically heparinized with 5000 units of heparin IV. A Navicross catheter and a 0.018 V18 wire were used to traverse the areas of stenosis in the anterior tibial artery and the catheter and wire were then advanced into the dorsalis pedis artery which was confirmed by angiogram. The V 18 wire was then exchanged for a 0.014 Viper Wire. Atherectomy of the areas of stenosis within the anterior tibial artery were then treated with a CSI 1.25 Solid Diamondback Orbital Atherectomy Catheter. After performing atherectomy angioplasty of the artery was performed with a 3.5 x 220 Ringling Balloon additional angioplasty of the artery was performed with a 4.0 x 250 IN.PACT Drug-Coated Balloon with a result of less than 10% residual stenosis and brisk flow of contrast throughout the artery and into the foot. I then r einserted the Navicross catheter and used a 0.014 Choice PT Wire and advanced it across the area of stenosis in the distal posterior tibial artery and then performed angioplasty using the 3.5 x 220 Ringling Balloon with a result of less than 10% residual stenosis and brisk flow of contrast through the posterior tibial artery and into the hindfoot. At this point the wire was removed and exchanged for the Gene Solutionsson wire. The 6 Fijian sheath was removed and a Pro-glide closure device was used to close the left femoral arteriotomy. A sterile dressing was then applied to the left groin entry site and the patient was transported back to his room in stable condition.
[2020-07-27] MEDS ORDERED: VANCOMYCIN PHARMACY TO DOSE IV SCH (14:00)
[2020-07-27] MEDS ORDERED: CLOPIDOGREL 300 MG TAB PO ONE (14:00)
[2020-07-27] MEDS ORDERED: VANCOMYCIN 2,000 MG in SODIUM CHLORIDE 0.9% 500 ML 500 ML IV ONE (14:00)
[2020-07-27] MEDS: INSULIN GLARGINE 100 UNITS/ML SUB-Q SCH (22:04)
[2020-07-28] MEDS: VANCOMYCIN 1,750 MG in SODIUM CHLORIDE 0.9% 500 ML 500 ML IV SCH ×2 (02:53→15:08)
[2020-07-28] MEDS: HYDROmorphone 1 MG/1 ML INJ IV PRN ×6 (02:55→19:48)
[2020-07-28] MEDS: INSULIN LISPRO 100 UNIT/ML VIAL 3 mL SUB-Q SCH ×4 (08:00→23:04)
[2020-07-28] MEDS: CLOPIDOGREL 75 MG TAB PO SCH (09:19)
[2020-07-28] MEDS: ASPIRIN EC 81 MG TAB PO SCH (09:19)
[2020-07-28] MEDS: cloNIDine 0.1 MG TAB PO SCH ×3 (09:19→19:49)
[2020-07-28] MEDS: FAMOTIDINE 20 MG TAB PO SCH ×2 (09:20→22:53)
[2020-07-28] MEDS: CEFEPIME/NS 2 GM/100 ML 2 GM/100 ML BAG IV SCH ×2 (09:24→22:52)
--- NOTE | 2020-07-28 09:57 | Progress Note ---
Assessment and Plan Patient status post revascularization in order to optimize the inflow. He is currently receiving IV antibiotics. Discussed with patient the need for surgical consultation and evaluation. He is opposed at this time to amputation but amenable to local wound care. Would continue with aggressive wound care to allow maximal wound healing. Subjective Date of service: 07/28/20 Principal diagnosis: Osteomyelitis Interval history: Patient with a history of peripheral vascular disease status post revascularization. MRI results noted consistent with osteomyelitis. Patient has a left upper arm PICC line in place. No complaints of any pain. Objective - Constitutional Vitals: Vital Signs - 12hr 07/28/20 07/28/20 07/28/20 00:26 05:29 07:48 Temperature 98.3 F 98.9 F 98.8 F Pulse Rate 78 76 68 Respiratory 18 18 20 Rate Blood Pressure 133/78 142/81 149/94 O2 Sat by Pulse 100 96 97 Oximetry 07/28/20 09:19 Temperature Pulse Rate 68 Respiratory Rate Blood Pressure 149/94 O2 Sat by Pulse Oximetry General appearance: Present: no acute distress - EENT Eyes: EOM intact ENT: hearing intact - Neck Neck: supple - Respiratory Respiratory effort: normal Extremities: abnormal - Gastrointestinal General gastrointestinal: Present: deferred - Genitourinary Male genitourinary: deferred - Psychiatric Psychiatric: cooperative - Labs CBC & Chem 7: 07/27/20 05:52 07/27/20 05:52 Labs: Abnormal lab results 07/27/20 07/27/20 Range/Units 13:43 21:58 POC Glucose 109 H 217 H (70-105) mg/dL Medications & Allergies - Medications Allergies/Adverse Reactions: Allergies acetaminophen [From Vicodin] Allergy (Verified 07/23/20 12:02) Unknown exenatide [From [place]] Allergy (Verified 07/23/20 12:02) Unknown hydrocodone [From Vicodin] Allergy (Verified 07/23/20 12:02) Unknown pioglitazone [From Actos] Allergy (Verified 07/23/20 12:02) Unknown Home Medications: Home Medications Medication Instructions Recorded Confirmed Last Taken Type cloNIDine [Catapres] 0.1 mg PO TID 07/26/20 07/26/20 Unknown History Active Medications: Generic Name Dose Route Start Last Admin Trade Name Freq PRN Reason Stop Dose Admin Acetaminophen 650 mg 07/23/20 21:47 Acetaminophen 325 Mg Tab PO Q4H PRN Pain MILD(1-3)/Fever >100.5/[place] Aspirin 81 mg 07/28/20 10:00 07/28/20 09:19 Aspirin Ec 81 Mg Tab PO 81 mg QDAY IRMA Administration Clonidine HCl 0.1 mg 07/25/20 20:00 07/28/20 09:19 Clonidine 0.1 Mg Tab PO 0.1 mg TID IRMA Administration Clopidogrel Bisulfate 75 mg 07/28/20 10:00 07/28/20 09:19 Clopidogrel 75 Mg Tab PO 75 mg QDAY IRMA Administration Famotidine 20 mg 07/23/20 22:00 07/28/20 09:20 Famotidine 20 Mg Tab PO 20 mg BID IRMA Administration Hydralazine HCl 10 mg 07/25/20 17:07 07/25/20 17:50 Hydralazine 20 Mg/1 Ml Inj IV 10 mg Q6HR PRN Administration systolic greater than >160 Hydromorphone HCl 0.5 mg 07/23/20 21:47 07/28/20 09:20 Hydromorphone 1 Mg/1 Ml Inj IV 0.5 mg Q3H PRN Administration Pain , Severe (7-10) Cefepime HCl 2 gm in 100 mls @ 200 mls/hr 07/24/20 12:30 07/28/20 09:24 Cefepime/Ns 2 Gm/100 Ml IV 08/02/20 22:29 200 mls/hr Q12HR IRMA Administration Vancomycin HCl 1,750 mg/ 535 mls @ 333.333 mls/hr 07/28/20 02:00 07/28/20 02:53 Sodium Chloride IV 333.333 mls/hr Q12H IRMA Administration Ibuprofen 800 mg 07/23/20 21:03 07/23/20 21:13 Ibuprofen 800 Mg Tab PO 800 mg Q8H PRN Administration Pain, Mild (1-3) Insulin Glargine 30 units 07/25/20 22:00 07/27/20 22:04 Insulin Glargine 100 Units/Ml SUB-Q 30 units QHS IRMA Administration Insulin Human Lispro 0 unit 07/23/20 22:00 07/28/20 08:00 Insulin Lispro 100 Unit/Ml Vial 3 Ml SUB-Q Not Given ACHS [facility] Protocol Ondansetron HCl 4 mg 01/18/21 21:47 Ondansetron 4 Mg/2 Ml Inj IV Q8H PRN Nausea And Vomiting Sodium Chloride 10 ml 07/23/20 22:00 07/27/20 22:06 Sodium Chloride 0.9% 10 Ml Flush Syringe IV 10 ml BID IRMA Administration Sodium Chloride 10 ml 07/23/20 21:47 Sodium Chloride 0.9% 10 Ml Flush Syringe IV PRN PRN LINE FLUSH
--- NOTE | 2020-07-28 12:24 | Progress Note ---
Assessment and Plan Assessment and plan: 50-year-old male with history of severe peripheral arterial disease and diabetes comes in for right foot infection. Patient has left BKA. Patient also has right TMA. The distal part of the TMA is draining pus and also a heel ulcer. Patient has not been following with any bradycardia. Patient went 3 months ago and was given antibiotics. No follow-up with any PCP any physicians. Not attending any wound care clinic. Patient has had a foul-smelling discharge for 1 week. 07/24: Continue supportive care, Will consult Wound care and Surgery, will also get lower ext Doppler of the right lower ext. Case management consult as patient has social issues that needs to be address, such as where to stay 07/25: Continue supportive care. Awaiting re-eval from surgery after reviewing imaging, obtain arterial study considering poor wound healing. Venous doppler was negative. Adjust insulin for better blood glucose control. Further evaluation yesterday shows that the patient was refusing further surgery. I will order a Doppler of the arteries as patient possibly has underlying PAD. 07/26: Arterial Doppler of lower extremities shows disease. Revascularization is planned today to assist with wound healing. Continue current treatment ID and surgical input is noted. HBOT outpatient if possible case management has been consulted to help address social issues. MRI of lower extremity to better e valuate for osteomyelitis. 07/27: For revascularization today. Awaiting MRI study. Discussed with infectious disease physician Dr. Turner 07/28: Continue supportive care, wound care management. Patient is apost revascularization. Pateint continues to refuse ampuation, awaiting set up for IV abx and possible placement. (1) Cellulitis of right leg Current Visit: Yes Status: Acute Plan to address problem: Patient initiated on Unasyn and vancomycin. ID consult requested. (2) Osteomyelitis of right foot Current Visit: Yes Status: Acute Plan to address problem: Patient may need further amputation. Surgical consult requested. Also Ortho consult requested. (3) Hypertension Current Visit: Yes Status: Chronic Qualifiers: Hypertension type: essential hypertension Qualified Code(s): I10 - Essential (primary) hypertension Plan to address problem: Continue antihypertensives. (4) T2DM (type 2 diabetes mellitus) Current Visit: Yes Status: Chronic Plan to address problem: -Sliding scale coverage for now long-acting insulin. (5) PAD (6) Mild Hyponatremia (7) DVT prophylaxis Current Visit: Yes Status: Acute Plan to address problem: On heparin and GI prophylaxis History Interval history: Patient seen and examined no new complaints, still with pain in the legs. 09/12 intensity.S/P Revascularization Hospitalist Physical - Physical exam Narrative exam: General appearance: Present: no acute distress, well-nourished - EENT Eyes: Present: PERRL ENT: hearing intact, clear oral mucosa - Neck Neck: Present: supple, normal ROM - Respiratory Respiratory effort: normal Respiratory: bilateral: CTA - Cardiovascular Rhythm: regular Heart Sounds: Present: S1 & S2. Absent: rub, click - Extremities Extremities: pulses symmetrical, No edema, abnormal (Right foot ulcer and drainage on the TMA region. Also thick clear no heel ulcer. And thick callus present.) Peripheral Pulses: within normal limits - Abdominal General gastrointestinal: Present: soft, non-tender, non-distended, normal bowel sounds Male genitourinary: Present: normal - Integumentary Integumentary: Present: chronic vascular changes. - Musculoskeletal Musculoskeletal: gait normal, strength equal bilaterally - Psychiatric Psychiatric: appropriate mood/affect, intact judgment & insight - Neurologic Neurologic: CNII-XII intact, moves all extremities - Constitutional Vitals: Temp Pulse Resp BP Pulse Ox 98.3 F 71 18 143/85 97 07/28/20 11:06 07/28/20 11:06 07/28/20 11:06 07/28/20 11:06 07/28/20 11:06 General appearance: Present: no acute distress Results - Labs CBC & Chem 7: 07/27/20 05:52 07/27/20 05:52 Labs: Laboratory Last Values WBC 7.4 K/mm3 (4.5-11.0) 07/27/20 05:52 RBC 3.98 M/mm3 (3.65-5.03) 07/27/20 05:52 Hgb 10.5 gm/dl (11.8-15.2) L 07/27/20 05:52 Hct 33.1 % (35.5-45.6) L 07/27/20 05:52 MCV 83 fl (84-94) L 07/27/20 05:52 MCH 26 pg (28-32) L 07/27/20 05:52 MCHC 32 % (32-34) 07/27/20 05:52 RDW 18.7 % (13.2-15.2) H 07/27/20 05:52 Plt Count 390 K/mm3 (140-440) 07/27/20 05:52 Lymph % (Auto) 41.6 % (13.4-35.0) H 07/24/20 02:10 [place] % (Auto) 6.4 % (0.0-7.3) 07/24/20 02:10 Eos % (Auto) 2.3 % (0.0-4.3) 07/24/20 02:10 Baso % (Auto) 0.3 % (0.0-1.8) 07/24/20 02:10 Lymph # (Auto) 3.3 K/mm3 (1.2-5.4) 07/24/20 02:10 [place] # (Auto) 0.5 K/mm3 (0.0-0.8) 07/24/20 02:10 Eos # (Auto) 0.2 K/mm3 (0.0-0.4) 07/24/20 02:10 Baso # (Auto) 0.0 K/mm3 (0.0-0.1) 07/24/20 02:10 Seg Neutrophils % 49.4 % (40.0-70.0) 07/24/20 02:10 Seg Neutrophils # 4.0 K/mm3 (1.8-7.7) 07/24/20 02:10 PT 13.7 Sec. (12.2-14.9) 07/23/20 14:30 INR 1.07 (0.87-1.13) 07/23/20 14:30 APTT 31.1 Sec. (24.2-36.6) 07/23/20 14:30 Sodium 135 mmol/L (137-145) L 07/27/20 05:52 Potassium 4.6 mmol/L (3.6-5.0) 07/27/20 05:52 Chloride 101.4 mmol/L (98-107) 07/27/20 05:52 Carbon Dioxide 28 mmol/L (22-30) 07/27/20 05:52 Anion Gap 10 mmol/L 07/27/20 05:52 BUN 16 mg/dL (9-20) 07/27/20 05:52 Creatinine 0.8 mg/dL (0.8-1.3) 07/27/20 05:52 Estimated GFR > 60 ml/min 07/27/20 05:52 BUN/Creatinine Ratio 20 % 07/27/20 05:52 Glucose 187 mg/dL (75-100) H 07/27/20 05:52 POC Glucose 117 mg/dL (70-105) H 07/28/20 11:06 Hemoglobin A1c 9.6 % (4-6) H 07/24/20 00:46 Lactic Acid 1.20 mmol/L (0.7-2.0) 07/23/20 14:30 Calcium 9.4 mg/dL (8.4-10.2) 07/27/20 05:52 Magnesium 2.10 mg/dL (1.7-2.3) 07/23/20 14:30 Total Bilirubin 0.30 mg/dL (0.1-1.2) 07/24/20 02:10 AST 19 units/L (5-40) 07/24/20 02:10 ALT 25 units/L (7-56) 07/24/20 02:10 Alkaline Phosphatase 127 units/L (35-129) 07/24/20 02:10 C-Reactive Protein 1.30 mg/dL (0.00-1.30) 07/25/20 05:03 NT-Pro-B Natriuret Pep 415.0 pg/mL (0-450) 07/23/20 14:30 Total Protein 7.1 g/dL (6.3-8.2) 07/24/20 02:10 Albumin 3.1 g/dL (3.9-5) L 07/24/20 02:10 Albumin/Globulin Ratio 0.8 % 07/24/20 02:10 Microbiology: Microbiology 07/23/20 14:38 Peripheral/Venous Blood Culture - Preliminary NO GROWTH AFTER 4 DAYS 07/23/20 14:30 Peripheral/Venous Blood Culture - Preliminary NO GROWTH AFTER 4 DAYS [place]/IV: Voiding Method Toilet IV Catheter Type [Left Upper Mid-line arm] IV Catheter Type [Left Peripheral IV Antecubital] IV Catheter Type [Right Wrist] INT / Saline Lock Active Medications - Current Medications Current Medications: Generic Name Dose Route Start Last Admin Trade Name Freq PRN Reason Stop Dose Admin Acetaminophen 650 mg 07/23/20 21:47 Acetaminophen 325 Mg Tab PO Q4H PRN Pain MILD(1-3)/Fever >100.5/[place] Aspirin 81 mg 07/28/20 10:00 07/28/20 09:19 Aspirin Ec 81 Mg Tab PO 81 mg QDAY IRMA Administration Clonidine HCl 0.1 mg 07/25/20 20:00 07/28/20 09:19 Clonidine 0.1 Mg Tab PO 0.1 mg TID IRMA Administration Clopidogrel Bisulfate 75 mg 07/28/20 10:00 07/28/20 09:19 Clopidogrel 75 Mg Tab PO 75 mg QDAY IRMA Administration Famotidine 20 mg 07/23/20 22:00 07/28/20 09:20 Famotidine 20 Mg Tab PO 20 mg BID IRMA Administration Hydralazine HCl 10 mg 07/25/20 17:07 07/25/20 17:50 Hydralazine 20 Mg/1 Ml Inj IV 10 mg Q6HR PRN Administration systolic greater than >160 Hydromorphone HCl 0.5 mg 07/23/20 21:47 07/28/20 09:20 Hydromorphone 1 Mg/1 Ml Inj IV 0.5 mg Q3H PRN Administration Pain , Severe (7-10) Cefepime HCl 2 gm in 100 mls @ 200 mls/hr 07/24/20 12:30 07/28/20 09:24 Cefepime/Ns 2 Gm/100 Ml IV 08/02/20 22:29 200 mls/hr Q12HR IRMA Administration Vancomycin HCl 1,750 mg/ 535 mls @ 333.333 mls/hr 07/28/20 02:00 07/28/20 02:53 Sodium Chloride IV 333.333 mls/hr Q12H IRMA Administration Ibuprofen 800 mg 07/23/20 21:03 07/23/20 21:13 Ibuprofen 800 Mg Tab PO 800 mg Q8H PRN Administration Pain, Mild (1-3) Insulin Glargine 30 units 07/25/20 22:00 07/27/20 22:04 Insulin Glargine 100 Units/Ml SUB-Q 30 units QHS IRMA Administration Insulin Human Lispro 0 unit 07/23/20 22:00 07/28/20 12:01 Insulin Lispro 100 Unit/Ml Vial 3 Ml SUB-Q Not Given ACHS [facility] Protocol Ondansetron HCl 4 mg 07/23/20 21:47 Ondansetron 4 Mg/2 Ml Inj IV Q8H PRN Nausea And Vomiting Sodium Chloride 10 ml 07/23/20 22:00 07/27/20 22:06 Sodium Chloride 0.9% 10 Ml Flush Syringe IV 10 ml BID IRMA Administration Sodium Chloride 10 ml 07/23/20 21:47 Sodium Chloride 0.9% 10 Ml Flush Syringe IV PRN PRN LINE FLUSH Nutrition/Malnutrition Assess - Dietary Evaluation Nutrition/Malnutrition Findings: Nutrition Notes Start: 07/24/20 15:08 Freq: Status: Active Protocol: Document 07/27/20 13:38 CW (Rec: 07/27/20 13:50 CW [id number]) Co-Sign 07/27/20 13:38 MK Nutrition Notes Initial or Follow up Reassessment Current Diagnosis Diabetes,Hypertension Other Pertinent Diagnosis PVD, right heal ulcer, L BKA, previous R TMA Current Diet NPO Labs/Tests Na 135 BG 187 Pertinent Medications Humalog Height 6 ft 2 in Weight 112.5 kg [place] Body Weight (kg) 86.36 BMI 31.8 Weight Status Obese Subjective/Other Information FU for diet education needs, intakes, BG. Per chart pt is eating 100% PO on 07/26. Pt was out of the room at time of visit and did not answer the phone x2. Gave diet education handouts/information to RN who agreed to give to pt. Percent of energy/protein needs met: 0%/0% Burn Absent Trauma Absent GI Symptoms None Current % PO Negligible Minimum of two criteria No #2 Nutrition Diagnosis Increased nutrient needs ( specify in comment below) Comments: protein Etiology wound healing As Evidenced by Signs and Symptoms DM foot and leg PUs #1 Diagnosis Progress(for reassessment Continues documentation) Is patient on ventilator? No Is Patient Ambulatory and/or Out of Bed No REE-([place]-confined to bed) 2475.060 Kcal/Kg value to use for calculation 18 Approximate Energy Requirements Using 2024 kcal/Kg Calculation Used for Recommendations Kcal/kg Additional Notes Protein: 108-130g (1.25-1.5 g/ kg IBW 86.36) Fluid: 1ml/kcal Nutrition Intervention Change Diet Order: Continue Add Supplement/Snack (indicate name/kcal Ensure High Protein (BID) /protein ) Provides kCal: 320 Provides Protein (gm) 32 Education Handouts Provided [facility] Handout Healthy DM Snacks Healthy Fast Food Handout RD phone number provided Yes Patient aware of follow up options Yes Goal #1 ONS tolerance Goal #2 Meet at least 75% of protein and energy needs via PO/ONS Goal #3 Support wound healing Anticipated Discharge Needs: Referral to [facility], food assistance program ([facility]) Low and consistent carbohydrate diet Follow-Up By: 07/31/20 Additional Comments F/u diet education reinforcement, intakes, BG
[2020-07-28] MEDS: INSULIN GLARGINE 100 UNITS/ML SUB-Q SCH (22:53)
[2020-07-29] MEDS: HYDROmorphone 1 MG/1 ML INJ IV PRN ×5 (02:46→21:21)
[2020-07-29] MEDS: VANCOMYCIN 1,750 MG in SODIUM CHLORIDE 0.9% 500 ML 500 ML IV SCH ×2 (02:46→14:03)
[2020-07-29] MEDS: INSULIN LISPRO 100 UNIT/ML VIAL 3 mL SUB-Q SCH ×4 (08:30→22:58)
--- NOTE | 2020-07-29 09:19 | Progress Note ---
Assessment and Plan Patient not wanting amputation. Given his osteomyelitis, patient will require long-term antibiotics and close follow-up. The patient can follow-up in our office in 2 weeks after discharge. Subjective Date of service: 07/29/20 Principal diagnosis: Osteomyelitis Interval history: Patient doing well following revascularization procedure. Per nursing, social work is managed to find the patient an outpatient facility that will accept him. He complains of some right leg pain. At his baseline. Objective - Constitutional Vitals: Vital Signs - 12hr 07/29/20 07/29/20 07/29/20 00:35 04:53 08:14 Temperature 98.2 F 98.5 F 98.5 F Pulse Rate 72 74 71 Respiratory 20 20 18 Rate Blood Pressure 129/70 151/92 145/116 O2 Sat by Pulse 97 95 99 Oximetry General appearance: Present: no acute distress - EENT Eyes: EOM intact ENT: hearing intact - Neck Neck: supple, normal ROM - Respiratory Respiratory effort: normal Extremities: abnormal - Gastrointestinal General gastrointestinal: Present: deferred Rectal Exam: deferred - Genitourinary Male genitourinary: deferred - Psychiatric Psychiatric: cooperative - Labs CBC & Chem 7: 07/27/20 05:52 07/27/20 05:52 Labs: Abnormal lab results 07/28/20 07/28/20 07/28/20 Range/Units 11:06 15:45 22:06 POC Glucose 117 H 151 H 182 H (70-105) mg/dL Medications & Allergies - Medications Allergies/Adverse Reactions: Allergies acetaminophen [From Vicodin] Allergy (Verified 07/23/20 12:02) Unknown exenatide [From [place]] Allergy (Verified 07/23/20 12:02) Unknown hydrocodone [From Vicodin] Allergy (Verified 07/23/20 12:02) Unknown pioglitazone [From Actos] Allergy (Verified 07/23/20 12:02) Unknown Home Medications: Home Medications Medication Instructions Recorded Confirmed Last Taken Type cloNIDine [Catapres] 0.1 mg PO TID 07/26/20 07/26/20 Unknown History Active Medications: Generic Name Dose Route Start Last Admin Trade Name Freq PRN Reason Stop Dose Admin Acetaminophen 650 mg 07/23/20 21:47 Acetaminophen 325 Mg Tab PO Q4H PRN Pain MILD(1-3)/Fever >100.5/[place] Aspirin 81 mg 07/28/20 10:00 07/28/20 09:19 Aspirin Ec 81 Mg Tab PO 81 mg QDAY IRMA Administration Clonidine HCl 0.1 mg 07/25/20 20:00 07/28/20 19:49 Clonidine 0.1 Mg Tab PO 0.1 mg TID IRMA Administration Clopidogrel Bisulfate 75 mg 07/28/20 10:00 07/28/20 09:19 Clopidogrel 75 Mg Tab PO 75 mg QDAY IRMA Administration Famotidine 20 mg 07/23/20 22:00 07/28/20 22:53 Famotidine 20 Mg Tab PO 20 mg BID IRMA Administration Hydralazine HCl 10 mg 07/25/20 17:07 07/25/20 17:50 Hydralazine 20 Mg/1 Ml Inj IV 10 mg Q6HR PRN Administration systolic greater than >160 Hydromorphone HCl 0.5 mg 07/23/20 21:47 07/29/20 02:46 Hydromorphone 1 Mg/1 Ml Inj IV 0.5 mg Q3H PRN Administration Pain , Severe (7-10) Cefepime HCl 2 gm in 100 mls @ 200 mls/hr 07/24/20 12:30 07/28/20 22:52 Cefepime/Ns 2 Gm/100 Ml IV 08/02/20 22:29 200 mls/hr Q12HR IRMA Administration Vancomycin HCl 1,750 mg/ 535 mls @ 333.333 mls/hr 07/28/20 02:00 07/29/20 02:46 Sodium Chloride IV 333.333 mls/hr Q12H IRMA Administration Ibuprofen 800 mg 07/23/20 21:03 07/23/20 21:13 Ibuprofen 800 Mg Tab PO 800 mg Q8H PRN Administration Pain, Mild (1-3) Insulin Glargine 30 units 07/25/20 22:00 07/28/20 22:53 Insulin Glargine 100 Units/Ml SUB-Q 30 units QHS IRMA Administration Insulin Human Lispro 0 unit 07/23/20 22:00 07/28/20 23:04 Insulin Lispro 100 Unit/Ml Vial 3 Ml SUB-Q 3 unit ACHS IRMA Administration Protocol Ondansetron HCl 4 mg 07/23/20 21:47 Ondansetron 4 Mg/2 Ml Inj IV Q8H PRN Nausea And Vomiting Sodium Chloride 10 ml 07/23/20 22:00 07/28/20 23:04 Sodium Chloride 0.9% 10 Ml Flush Syringe IV 10 ml BID IRMA Administration Sodium Chloride 10 ml 07/23/20 21:47 Sodium Chloride 0.9% 10 Ml Flush Syringe IV PRN PRN LINE FLUSH
[2020-07-29] MEDS: CLOPIDOGREL 75 MG TAB PO SCH (09:43)
[2020-07-29] MEDS: FAMOTIDINE 20 MG TAB PO SCH ×2 (09:43→21:20)
[2020-07-29] MEDS: cloNIDine 0.1 MG TAB PO SCH ×3 (09:43→21:20)
[2020-07-29] MEDS: ASPIRIN EC 81 MG TAB PO SCH (09:43)
[2020-07-29] MEDS: CEFEPIME/NS 2 GM/100 ML 2 GM/100 ML BAG IV SCH ×2 (09:44→21:20)
[2020-07-29] MEDS ORDERED: oxyCODONE /ACETAMINOPHEN 5-325MG TAB PO PRN (11:42)
--- NOTE | 2020-07-29 11:45 | Progress Note ---
Assessment and Plan Assessment and plan: 50-year-old male with history of severe peripheral arterial disease and diabetes comes in for right foot infection. Patient has left BKA. Patient also has right TMA. The distal part of the TMA is draining pus and also a heel ulcer. Patient has not been following with any bradycardia. Patient went 3 months ago and was given antibiotics. No follow-up with any PCP any physicians. Not attending any wound care clinic. Patient has had a foul-smelling discharge for 1 week. 07/24: Continue supportive care, Will consult Wound care and Surgery, will also get lower ext Doppler of the right lower ext. Case management consult as patient has social issues that needs to be address, such as where to stay 07/25: Continue supportive care. Awaiting re-eval from surgery after reviewing imaging, obtain arterial study considering poor wound healing. Venous doppler was negative. Adjust insulin for better blood glucose control. Further evaluation yesterday shows that the patient was refusing further surgery. I will order a Doppler of the arteries as patient possibly has underlying PAD. 07/26: Arterial Doppler of lower extremities shows disease. Revascularization is planned today to assist with wound healing. Continue current treatment ID and surgical input is noted. HBOT outpatient if possible case management has been consulted to help address social issues. MRI of lower extremity to better e valuate for osteomyelitis. 07/27: For revascularization today. Awaiting MRI study. Discussed with infectious disease physician Dr. Turner 07/28: Continue supportive care, wound care management. Patient is apost revascularization. Pateint continues to refuse ampuation, awaiting set up for IV abx and possible placement. 07/29: Adjust pain medication. Discussed with case management will await [facility] for finalization of home arrangements and antibiotics. MRI as previously reviewed with ID Dr. Turner confirmed osteomyelitis. The patient again refuses any amputation at this time. Will follow with vascular in 2 weeks. (1) Cellulitis of right leg Current Visit: Yes Status: Acute Plan to address problem: Patient initiated on Unasyn and vancomycin. ID consult requested. (2) Osteomyelitis of right foot Current Visit: Yes Status: Acute Plan to address problem: Patient may need further amputation. Surgical consult requested. Also Ortho consult requested. (3) Hypertension Current Visit: Yes Status: Chronic Qualifiers: Hypertension type: essential hypertension Qualified Code(s): I10 - Essential (primary) hypertension Plan to address problem: Continue antihypertensives. (4) T2DM (type 2 diabetes mellitus) Current Visit: Yes Status: Chronic Plan to address problem: -Sliding scale coverage for now long-acting insulin. (5) PAD (6) Mild Hyponatremia (7) DVT prophylaxis Current Visit: Yes Status: Acute Plan to address problem: On heparin and GI prophylaxis History Interval history: Patient seen and examined no new complaints, still with pain in the legs. 3/10 intensity, states the pain medication wears off too quickly. S/P Revascularization Hospitalist Physical - Physical exam Narrative exam: General appearance: Present: no acute distress, well-nourished - EENT Eyes: Present: PERRL ENT: hearing intact, clear oral mucosa - Neck Neck: Present: supple, normal ROM - Respiratory Respiratory effort: normal Respiratory: bilateral: CTA - Cardiovascular Rhythm: regular Heart Sounds: Present: S1 & S2. Absent: rub, click - Extremities Extremities: pulses symmetrical, No edema, abnormal (Right foot ulcer and still with drainage on the TMA region. Also thick clear no heel ulcer. And thick callus present.) Peripheral Pulses: within normal limits - Abdominal General gastrointestinal: Present: soft, non-tender, non-distended, normal bowel sounds Male genitourinary: Present: normal - Integumentary Integumentary: Present: chronic vascular changes. - Musculoskeletal Musculoskeletal: gait normal, strength equal bilaterally - Psychiatric Psychiatric: appropriate mood/affect, intact judgment & insight - Neurologic Neurologic: CNII-XII intact, moves all extremities - Constitutional Vitals: Temp Pulse Resp BP Pulse Ox 98.5 F 71 18 145/116 99 07/29/20 08:14 07/29/20 08:14 07/29/20 08:14 07/29/20 08:14 07/29/20 08:14 General appearance: Present: no acute distress Results - Labs CBC & Chem 7: 07/27/20 05:52 07/27/20 05:52 Labs: Laboratory Last Values WBC 7.4 K/mm3 (4.5-11.0) 07/27/20 05:52 RBC 3.98 M/mm3 (3.65-5.03) 07/27/20 05:52 Hgb 10.5 gm/dl (11.8-15.2) L 07/27/20 05:52 Hct 33.1 % (35.5-45.6) L 07/27/20 05:52 MCV 83 fl (84-94) L 07/27/20 05:52 MCH 26 pg (28-32) L 07/27/20 05:52 MCHC 32 % (32-34) 07/27/20 05:52 RDW 18.7 % (13.2-15.2) H 07/27/20 05:52 Plt Count 390 K/mm3 (140-440) 07/27/20 05:52 Lymph % (Auto) 41.6 % (13.4-35.0) H 07/24/20 02:10 [place] % (Auto) 6.4 % (0.0-7.3) 07/24/20 02:10 Eos % (Auto) 2.3 % (0.0-4.3) 07/24/20 02:10 Baso % (Auto) 0.3 % (0.0-1.8) 07/24/20 02:10 Lymph # (Auto) 3.3 K/mm3 (1.2-5.4) 07/24/20 02:10 [place] # (Auto) 0.5 K/mm3 (0.0-0.8) 07/24/20 02:10 Eos # (Auto) 0.2 K/mm3 (0.0-0.4) 07/24/20 02:10 Baso # (Auto) 0.0 K/mm3 (0.0-0.1) 07/24/20 02:10 Seg Neutrophils % 49.4 % (40.0-70.0) 07/24/20 02:10 Seg Neutrophils # 4.0 K/mm3 (1.8-7.7) 07/24/20 02:10 PT 13.7 Sec. (12.2-14.9) 07/23/20 14:30 INR 1.07 (0.87-1.13) 07/23/20 14:30 APTT 31.1 Sec. (24.2-36.6) 07/23/20 14:30 Sodium 135 mmol/L (137-145) L 07/27/20 05:52 Potassium 4.6 mmol/L (3.6-5.0) 07/27/20 05:52 Chloride 101.4 mmol/L (98-107) 07/27/20 05:52 Carbon Dioxide 28 mmol/L (22-30) 07/27/20 05:52 Anion Gap 10 mmol/L 07/27/20 05:52 BUN 16 mg/dL (9-20) 07/27/20 05:52 Creatinine 0.8 mg/dL (0.8-1.3) 07/27/20 05:52 Estimated GFR > 60 ml/min 07/27/20 05:52 BUN/Creatinine Ratio 20 % 07/27/20 05:52 Glucose 187 mg/dL (75-100) H 07/27/20 05:52 POC Glucose 89 mg/dL (70-105) 07/29/20 11:37 Hemoglobin A1c 9.6 % (4-6) H 07/24/20 00:46 Lactic Acid 1.20 mmol/L (0.7-2.0) 07/23/20 14:30 Calcium 9.4 mg/dL (8.4-10.2) 07/27/20 05:52 Magnesium 2.10 mg/dL (1.7-2.3) 07/23/20 14:30 Total Bilirubin 0.30 mg/dL (0.1-1.2) 07/24/20 02:10 AST 19 units/L (5-40) 07/24/20 02:10 ALT 25 units/L (7-56) 07/24/20 02:10 Alkaline Phosphatase 127 units/L (35-129) 07/24/20 02:10 C-Reactive Protein 1.30 mg/dL (0.00-1.30) 07/25/20 05:03 NT-Pro-B Natriuret Pep 415.0 pg/mL (0-450) 07/23/20 14:30 Total Protein 7.1 g/dL (6.3-8.2) 07/24/20 02:10 Albumin 3.1 g/dL (3.9-5) L 07/24/20 02:10 Albumin/Globulin Ratio 0.8 % 07/24/20 02:10 Microbiology: Microbiology 07/23/20 14:38 Peripheral/Venous Blood Culture - Final NO GROWTH AFTER 5 DAYS 07/23/20 14:30 Peripheral/Venous Blood Culture - Final NO GROWTH AFTER 5 DAYS Fraser/IV: Voiding Method Urinal IV Catheter Type [Left Upper Mid-line arm] IV Catheter Type [Left Peripheral IV Antecubital] IV Catheter Type [Right Wrist] INT / Saline Lock Active Medications - Current Medications Current Medications: Generic Name Dose Route Start Last Admin Trade Name Freq PRN Reason Stop Dose Admin Acetaminophen 650 mg 07/23/20 21:47 Acetaminophen 325 Mg Tab PO Q4H PRN Pain MILD(1-3)/Fever >100.5/CAHMPAGNE Aspirin 81 mg 07/28/20 10:00 07/29/20 09:43 Aspirin Ec 81 Mg Tab PO 81 mg QDAY IRMA Administration Clonidine HCl 0.1 mg 07/25/20 20:00 07/29/20 09:43 Clonidine 0.1 Mg Tab PO 0.1 mg TID IRMA Administration Clopidogrel Bisulfate 75 mg 07/28/20 10:00 07/29/20 09:43 Clopidogrel 75 Mg Tab PO 75 mg QDAY IRMA Administration Famotidine 20 mg 07/23/20 22:00 07/29/20 09:43 Famotidine 20 Mg Tab PO 20 mg BID IRMA Administration Hydralazine HCl 10 mg 07/25/20 17:07 07/25/20 17:50 Hydralazine 20 Mg/1 Ml Inj IV 10 mg Q6HR PRN Administration systolic greater than >160 Hydromorphone HCl 0.5 mg 07/23/20 21:47 07/29/20 09:44 Hydromorphone 1 Mg/1 Ml Inj IV 0.5 mg Q3H PRN Administration Pain , Severe (7-10) Cefepime HCl 2 gm in 100 mls @ 200 mls/hr 07/24/20 12:30 07/29/20 09:44 Cefepime/Ns 2 Gm/100 Ml IV 08/02/20 22:29 200 mls/hr Q12HR IRMA Administration Vancomycin HCl 1,750 mg/ 535 mls @ 333.333 mls/hr 07/28/20 02:00 07/29/20 0 2:46 Sodium Chloride IV 333.333 mls/hr Q12H IRMA Administration Ibuprofen 800 mg 07/23/20 21:03 07/23/20 21:13 Ibuprofen 800 Mg Tab PO 800 mg Q8H PRN Administration Pain, Mild (1-3) Insulin Glargine 30 units 07/25/20 22:00 07/28/20 22:53 Insulin Glargine 100 Units/Ml SUB-Q 30 units QHS IRMA Administration Insulin Human Lispro 0 unit 07/23/20 22:00 07/29/20 08:30 Insulin Lispro 100 Unit/Ml Vial 3 Ml SUB-Q Not Given ACHS [facility] Protocol Ondansetron HCl 4 mg 07/23/20 21:47 Ondansetron 4 Mg/2 Ml Inj IV Q8H PRN Nausea And Vomiting Oxycodone/Acetaminophen 2 tab 07/29/20 11:42 Oxycodone /Acetaminophen 5-325mg Tab PO Q6H PRN Pain, Moderate (4-6) Sodium Chloride 10 ml 07/23/20 22:00 07/29/20 09:43 Sodium Chloride 0.9% 10 Ml Flush Syringe IV 10 ml BID IRMA Administration Sodium Chloride 10 ml 07/23/20 21:47 Sodium Chloride 0.9% 10 Ml Flush Syringe IV PRN PRN LINE FLUSH Nutrition/Malnutrition Assess - Dietary Evaluation Nutrition/Malnutrition Findings: Nutrition Notes Start: 07/24/20 15:08 Freq: Status: Active Protocol: Document 07/27/20 13:38 CW (Rec: 07/27/20 13:50 CW [id number]) Co-Sign 07/27/20 13:38 MK Nutrition Notes Initial or Follow up Reassessment Current Diagnosis Diabetes,Hypertension Other Pertinent Diagnosis PVD, right heal ulcer, L BKA, previous R TMA Current Diet NPO Labs/Tests Na 135 BG 187 Pertinent Medications Humalog Height 6 ft 2 in Weight 112.5 kg [place] Body Weight (kg) 86.36 BMI 31.8 Weight Status Obese Subjective/Other Information FU for diet education needs, intakes, BG. Per chart pt is eating 100% PO on 07/26. Pt was out of the room at time of visit and did not answer the phone x2. Gave diet education handouts/information to RN who agreed to give to pt. Percent of energy/protein needs met: 0%/0% Burn Absent Trauma Absent GI Symptoms None Current % PO Negligible Minimum of two criteria No #2 Nutrition Diagnosis Increased nutrient needs ( specify in comment below) Comments: protein Etiology wound healing As Evidenced by Signs and Symptoms DM foot and leg PUs #1 Diagnosis Progress(for reassessment Continues documentation) Is patient on ventilator? No Is Patient Ambulatory and/or Out of Bed No REE-([facility]-confined to bed) 2475.060 Kcal/Kg value to use for calculation 18 Approximate Energy Requirements Using 2024 kcal/Kg Calculation Used for Recommendations Kcal/kg Additional Notes Protein: 108-130g (1.25-1.5 g/ kg IBW 86.36) Fluid: 1ml/kcal Nutrition Intervention Change Diet Order: Continue Add Supplement/Snack (indicate name/kcal Ensure High Protein (BID) /protein ) Provides kCal: 320 Provides Protein (gm) 32 Education Handouts Provided [facility] Handout Healthy DM Snacks Healthy Fast Food Handout RD phone number provided Yes Patient aware of follow up options Yes Goal #1 ONS tolerance Goal #2 Meet at least 75% of protein and energy needs via PO/ONS Goal #3 Support wound healing Anticipated Discharge Needs: Referral to correction, food assistance program ([facility]) Low and consistent carbohydrate diet Follow-Up By: 07/31/20 Additional Comments F/u diet education reinforcement, intakes, BG
[2020-07-29 15:51] LABS: Blood Urea Nitrogen 10 mg/dL (9-20); Hemolysis Index 2
[2020-07-29 15:53] LABS: BUN/Creatinine Ratio 14
--- NOTE | 2020-07-29 17:00 | XRay Report ---
CHEST 1 VIEW INDICATION: right arm picc line placement COMPARISON: None FINDINGS: Support devices: Right PICC line projected over the superior vena cava, with the tip at the level of the atriocaval junction. Heart: Normal Lungs/Pleura: Pulmonary vasculature is prominent, suggesting pulmonary venous hypertension. No pleura l fluid or overt interstitial edema. IMPRESSION: 1. Right PICC line in the SVC. Signer Name: Tayo Gruber MD Signed: 07/29/2020 4:56 PM Workstation Name: [id number]
[2020-07-29] MEDS: INSULIN GLARGINE 100 UNITS/ML SUB-Q SCH (22:56)
[2020-07-30] MEDS: HYDROmorphone 1 MG/1 ML INJ IV PRN ×5 (00:47→13:12)
[2020-07-30] MEDS: VANCOMYCIN 1,750 MG in SODIUM CHLORIDE 0.9% 500 ML 500 ML IV SCH ×2 (03:47→13:24)
[2020-07-30] MEDS: INSULIN LISPRO 100 UNIT/ML VIAL 3 mL SUB-Q SCH ×2 (08:18→13:15)
[2020-07-30] MEDS: ASPIRIN EC 81 MG TAB PO SCH (10:00)
[2020-07-30] MEDS: cloNIDine 0.1 MG TAB PO SCH ×2 (10:00→13:12)
[2020-07-30] MEDS: CLOPIDOGREL 75 MG TAB PO SCH (10:01)
[2020-07-30] MEDS: CEFEPIME/NS 2 GM/100 ML 2 GM/100 ML BAG IV SCH (10:01)
[2020-07-30] MEDS: FAMOTIDINE 20 MG TAB PO SCH (10:01)
--- NOTE | 2020-07-30 10:21 | Discharge Summary ---
Providers - Providers Date of Admission: 07/24/20 11:50 Attending physician: MARGARITA LANGLEY MD 07/23/20 21:47 Consult to Physician [CONS] Routine Comment: Consulting Provider: SRUTHI MESSINA Physician Instructions: Reason For Exam: Rt Foot Cellulitis 07/23/20 22:02 Consult to Wound/ET Nurse [CONS] Routine Reason For Exam: wound eval 07/24/20 08:25 Consult to Physician [CONS] Routine Comment: Consulting Provider: QIANA BOX Physician Instructions: Reason For Exam: left bka stump abscess 07/24/20 11:48 Occupational Therapy Evaluate and Treat [CONS] Routine Comment: Reason For Exam: Debility Physical Therapy Evaluation and Treat [CONS] Routine Comment: Reason For Exam: Debility 07/25/20 14:24 Midline [Consult to PICC Line RN] [CONS] Urgent Reason For Exam: IV antibiotics Type Line:: Midline 07/27/20 13:25 Consult to Case Management [CONS] Stat Services Needed at Discharge: 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 Line: Maintain IV access with weekly dressing changes and locks per protocol. Labs: Every Thursday CBC, AST, ALT, Creatinine, CPK, vancomcyin trough. Please fax results to [phone] and call [phone] for critical lab results. Sruthi Turner MD Infectious Diseases Implementation Specialist [facility] ([facility]) O: [phone] F: [phone] 07/29/20 11:36 Consult to PICC Line RN [CONS] Urgent Reason For Exam: change to picc line for abx Type Line:: PICC Primary care physician: ENVIRONMENTAL MANAGER Hospitalization Reason for admission: poor healing wound Condition: Stable Hospital course: 50-year-old male with history of severe peripheral arterial disease and diabetes comes in for right foot infection. Patient has left BKA. Patient also has right TMA. The distal part of the TMA is draining pus and also a heel ulcer. Patient has not been following with any bradycardia. Patient went 3 months ago and was given antibiotics. No follow-up with any PCP any physicians. Not attending any wound care clinic. Patient has had a foul-smelling discharge for 1 week. 07/24: Continue supportive care, Will consult Wound care and Surgery, will also get lower ext Doppler of the right lower ext. Case management consult as patient has social issues that needs to be address, such as where to stay 07/25: Continue supportive care. Awaiting re-eval from surgery after reviewing imaging, obtain arterial study considering poor wound healing. Venous doppler was negative. Adjust insulin for better blood glucose control. Further evaluation yesterday shows that the patient was refusing further surgery. I will order a Doppler of the arteries as patient possibly has underlying PAD. 07/26: Arterial Doppler of lower extremities shows disease. Revascularization is planned today to assist with wound healing. Continue current treatment ID and surgical input is noted. HBOT outpatient if possible case management has been consulted to help address social issues. MRI of lower extremity to better evaluate for osteomyelitis. 07/27: For revascularization today. Awaiting MRI study. Discussed with inf ectious disease physician Dr. Turner 07/28: Continue supportive care, wound care management. Patient is apost revascularization. Pateint continues to refuse ampuation, awaiting set up for IV abx and possible placement. 07/29: Adjust pain medication. Discussed with case management will await tomorrow for finalization of home arrangements and antibiotics. MRI as previously reviewed with ID Dr. Turner confirmed osteomyelitis. The patient again refuses any amputation at this time. Will follow with vascular in 2 weeks. 07/30: Patient clinically stable today, can be discharged once arranges outp atient plan and follow up. Discussed importance of follow up and wound management and also completion of the antibiotics (1) Cellulitis of right leg Current Visit: Yes Status: Acute Plan to address problem: Patient initiated on Unasyn and vancomycin. ID consult requested. (2) Osteomyelitis of right foot Current Visit: Yes Status: Acute Plan to address problem: Patient may need further amputation. Surgical consult requested. Also Ortho consult requested. (3) Hypertension Current Visit: Yes Status: Chronic Qualifiers: Hypertension type: essential hypertension Qualified Code(s): I10 - Essential (primary) hypertension Plan to address problem: Continue antihypertensives. (4) T2DM (type 2 diabetes mellitus) Current Visit: Yes Status: Chronic Plan to address problem: -Sliding scale coverage for now long-acting insulin. (5) PAD (6) Mild Hyponatremia Disposition: DC/TX-06 HOME UNDER [facility] Time spent for discharge: 35 mins Core Measure Documentation - Palliative Care Palliative Care/ Comfort Measures: Not Applicable - Core Measures Any of the following diagnoses?: none Exam - Physical Exam Narrative exam: General appearance: Present: no acute distress, well-nourished - EENT Eyes: Present: PERRL ENT: hearing intact, clear oral mucosa - Neck Neck: Present: supple, normal ROM - Respiratory Respiratory effort: normal Respiratory: bilateral: CTA - Cardiovascular Rhythm: regular Heart Sounds: Present: S1 & S2. Absent: rub, click - Extremities Extremities: pulses symmetrical, No edema, abnormal (Right foot ulcer and still with drainage on the TMA region. Also thick clear no heel ulcer. And thick callus present.) Peripheral Pulses: within normal limits - Abdominal General gastrointestinal: Present: soft, non-tender, non-distended, normal bowel sounds Male genitourinary: Present: normal - Integumentary Integumentary: Present: chronic vascular changes. - Musculoskeletal Musculoskeletal: gait normal, strength equal bilaterally - Psychiatric Psychiatric: appropriate mood/affect, intact judgment & insight - Neurologic Neurologic: CNII-XII intact, moves all extremities - Constitutional Vitals: Temp Pulse Resp BP Pulse Ox 98.4 F 74 16 153/89 92 07/30/20 08:11 07/30/20 08:11 07/30/20 08:11 07/30/20 08:11 07/30/20 08:11 Plan Activity: advance as tolerated, fall precautions Diet: low fat Special Instructions: record daily weights, record daily BP diary, record blood sugar diary [facility] up with: [facility]] - 7 Days ANTONY SANTOS MD [Staff Physician] - 7 Days SRUTHI MESSINA MD [Staff Physician] - 7 Days [facility], [Primary Care Provider] - 3-5 Days QIANA BOX MD [Staff Physician] - 7 Days Prescriptions: Insulin Glargine [Lantus VIAL] 30 units SUB-Q QHS #10 ml cloNIDine [Catapres] 0.1 mg PO TID #90 tablet Aspirin EC [Halfprin EC] 81 mg PO QDAY #30 tablet Famotidine [Pepcid] 20 mg PO DAILY #30 tablet oxyCODONE /ACETAMINOPHEN [Percocet 5/325 mg] 2 tab PO Q6H PRN #20 tablet PRN Reason: Pain, Moderate (4-6) Clopidogrel [Plavix] 75 mg PO QDAY #30 tablet Sennosides/Docusate Sodium [Senna-S 8.6-50 mg Tablet] 1 each PO DAILY #30 tablet
--- NOTE | 2020-07-30 12:23 | Progress Note ---
Assessment and Plan Cultures: Blood cultures no growth today Assessment: 50 years old male with history of uncontrolled diabetes, hypertension, severe peripheral vascular disease, previous left BKA, previous right TMA, admitted on 07/22/2020 secondary to distal right TMA stump draining foul-smelling purulence associated with pain and subjective fever: #Right TMA stump infection/osteomyelitis?: Patient has no records in this h ospital. S/p TMA of a right toe 3-4 weeks ago at [facility]. Unknown etiology. CRP 1.3. On exam per wound care -right plantar foot diabetic ulcer, measures 8 x 7 x 0.2 cm. Wound bed is red. Moderate amount of serosanguineous drainage, no odor noted at this time. Periwound skin is moist and macerated, with scar tissue noted. MRI with osteomyelitis on 1st, 2nd, 4th metatarsals and 3rd calcaneus. #Diabetes mellitus: Uncontrolled, A1c 9.6. #Peripheral vascular disease: With history of revascularization. Art Us significant stenosis, status post revascularization on 07/27/2020 Recommendations: -Surgery on board -Continue cefepime 2 g IV every 12 hours -Continue vancomycin w PK consult -Anticipate to d/c ceftriaxone 2g IVqday and daptomycin 600 mg IV q day for 6 weeks until 09/04/2020 for easier administration. ID clinic follow-up in 2 weeks Will follow. Sruthi Valenzuela MD Infectious Diseases Vice President Education [facility] ([facility]) M [phone] O [phone] Subjective Date of service: 07/30/20 Principal diagnosis: Osteomyelitis Interval history: Patient feels okay, complaining of right-sided facial pain, denies any fever, chest pain. Objective - Exam Narrative Exam: General appearance: Alert in NAD Eyes: anicteric sclerae, moist conjunctivae; no lid-lag; PERRLA HENT: Normocephalic, Atraumatic; normal external ears, nares open, oropharynx clear Neck: supple, tracheal midline, no JVD Lungs: CTA, with normal respiratory effort and no intercostal retractions CV: RRR no murmur Abdomen: Soft, non-tender; no masses or hepatosplenomegaly Extremities: Left below-knee amputation stump healed, right TMA with wound covered with dressing Skin: No rash. Psych: no agitated Neuro: alert and oriented x 3. Moving all extermities - Constitutional Vitals: Vital Signs Temp Pulse Resp BP Pulse Ox 98.4 F 74 16 153/89 92 07/30/20 08:11 07/30/20 08:11 07/30/20 08:11 07/30/20 08:11 07/30/20 08:11 Temperature -Last 24 Hours Temperature 98.4 F Temperature 98.2 F Temperature 98.2 F Temperature 98.4 F - Labs CBC & Chem 7: 07/27/20 05:52 07/29/20 15:15 Labs: Abnormal lab results 07/29/20 07/29/20 07/29/20 Range/Units 15:15 16:42 21:38 Sodium 135 L (137-145) mmol/L Creatinine 0.7 L (0.8-1.3) mg/dL Glucose 168 H (75-100) mg/dL POC Glucose 160 H 149 H (70-105) mg/dL
[2020-07-30 13:11] VITALS: BP 141/81
== END 2020-07-30 18:00 | disposition home health service (06) | DRG 629 ==
LOC: ED 20:53 → 3A 07-23 15:19 → 3B-SURG 07-23 17:31 → OBSVTOIN 07-24 11:50
PROVIDERS: ADMIT Internal Medicine; ATTEND Internal Medicine
PROC: B41J1ZZ Fluoroscopy of Other Lower Arteries using Low Osmolar Contrast (ICD-10-PCS; principal; 2020-07-27)
PROC: 04CP3ZZ Extirpation of Matter from Right Anterior Tibial Artery, Percutaneous Approach (ICD-10-PCS; 2020-07-27)
PROC: 047P3Z1 Dilation of Right Anterior Tibial Artery using Drug-Coated Balloon, Percutaneous Approach (ICD-10-PCS; 2020-07-27)
PROC: 047R3ZZ Dilation of Right Posterior Tibial Artery, Percutaneous Approach (ICD-10-PCS; 2020-07-27)
DX: E11.69 Type 2 diabetes mellitus with other specified complication (principal); T87.43 Infection of amputation stump, right lower extremity; M86.9 Osteomyelitis, unspecified; L03.115 Cellulitis of right lower limb; E87.1 Hypo-osmolality and hyponatremia; E11.65 Type 2 diabetes mellitus with hyperglycemia; F17.200 Nicotine dependence, unspecified, uncomplicated; E11.51 Type 2 diabetes mellitus with diabetic peripheral angiopathy without gangrene; I10 Essential (primary) hypertension; D64.9 Anemia, unspecified; Z59.0 Homelessness; Z88.8 Allergy status to other drugs, medicaments and biological substances; Z88.5 Allergy status to narcotic agent; Z89.421 Acquired absence of other right toe(s); Z89.512 Acquired absence of left leg below knee; Z79.899 Other long term (current) drug therapy; Z79.891 Long term (current) use of opiate analgesic; Z79.01 Long term (current) use of anticoagulants; Z79.82 Long term (current) use of aspirin; Z79.2 Long term (current) use of antibiotics
CPT/HCPCS: 36415; 37229; 37232; 71045; 75625; 75710; 76937; 80048; 80053; 80202; 82140; 82962; 83036; 83735; 83880; 85025; 85027; 85610; 85730; 86140; 87040; 93925; 96365; 96366; 96367; G0378; A9577; C1724; C1725; C1760; C1769; C1887; J0295; J0360; J0692; J1170; J1644; J1815; J2250; J2543; J3010; J3370; J7030; J7040; Q9967

== ENCOUNTER 2020-08-09 04:18 | Emergency (ER) | payer MEDICARE ==
--- NOTE | 2020-08-09 04:39 | Emergency Department Report ---
Blank Doc - Documentation Documentation: 50-year-old male diabetic presents to emergency department via EMS with a evolv ing and apparent changing story complaining of anything from dizziness, to shortness of breath, to his right PICC line coming out earlier today, to fall, 2 elevated blood sugar, 2 weakness. This initial assessment/diagnostic orders/clinical plan/treatment(s) is/are subject to change based on patients health status, clinical progression and re- assessment by fellow clinical providers in the ED. Further treatment and workup at subsequent clinical providers discretion. Patient/guardian urged not to elope from the ED as their condition may be serious if not clinically assessed and managed. Initial orders include: Labs
--- NOTE | 2020-08-09 05:21 | XRay Report ---
CHEST 1 VIEW 5:11 AM INDICATION / CLINICAL INFORMATION: Lightheadedness/Dizziness. COMPARISON: 07/29/20. FINDINGS: SUPPORT DEVICES: The right PICC has been removed. HEART / MEDIASTINUM: The heart size is normal. Pulmonary vascular congestion has resolved. LUNGS / PLEURA: Interstitial edema has cleared. No new abnormality is seen. No pneumothorax. ADDITIONAL FINDINGS: No significant additional findings. IMPRESSION: No acute findings. Signer Name: Сергей Wolfe MD Signed: 08/09/2020 5:16 AM Workstation Name: [id number]
[2020-08-09 05:45] LABS: Basophils # (Auto) 0.1 K/mm3 (0.0-0.1); Basophils % (Auto) 1.1 % (0.0-1.8); Eosinophils # (Auto) 0.3 K/mm3 (0.0-0.4); Eosinophils % (Auto) 3.7 % (0.0-4.3); Hematocrit 36.3 % (35.5-45.6); Hemoglobin 11.6 gm/dl (11.8-15.2); Lymphocytes # (Auto) 2.8 K/mm3 (1.2-5.4); Lymphocytes % (Auto) 35.8 % (13.4-35.0); Mean Corpuscular HGB Conc 32 % (32-34); Mean Corpuscular Volume 84 fl (84-94); Monocytes # (Auto) 0.6 K/mm3 (0.0-0.8); Platelet Count 361 K/mm3 (140-440); Red Blood Count 4.34 M/mm3 (3.65-5.03); Red Cell Distribution Width 18.1 % (13.2-15.2)
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
[2020-08-09] MEDS ORDERED: cefTRIAXone/NS 1 GM/50 ML 1 GM/50 ML BAG IV ONE (06:12)
[2020-08-09] MEDS ORDERED: oxyCODONE /ACETAMINOPHEN 5-325MG TAB PO PRN (06:13)
[2020-08-09 06:36] LABS: Alanine Aminotransferase 22 units/L (7-56); Albumin 3.6 g/dL (3.9-5); BUN/Creatinine Ratio 18; Blood Urea Nitrogen 14 mg/dL (9-20); Calcium 9.3 mg/dL (8.4-10.2); Hemolysis Index 6
[2020-08-09] MEDS ORDERED: cefTRIAXone/NS 2 GM/100 ML 2 GM/100 ML BAG IV ONE (06:57)
[2020-08-09] MEDS ORDERED: cloNIDine 0.1 MG TAB PO SCH (08:00)
[2020-08-09] MEDS ORDERED: FAMOTIDINE 20 MG TAB PO SCH (10:00)
[2020-08-09] MEDS ORDERED: SENNOSIDES/DOCUSATE SODIUM 8.6/50 MG TAB PO SCH (10:00)
[2020-08-09 13:06] VITALS: BP 150/101
[2020-08-09] MEDS ORDERED: INSULIN GLARGINE 100 UNITS/ML SUB-Q SCH (22:00)
== END 2020-08-09 13:06 | disposition home or self-care (01) ==
LOC: ED 04:18
DX: I73.9 Peripheral vascular disease, unspecified (principal); M86.9 Osteomyelitis, unspecified; Z59.0 Homelessness; I10 Essential (primary) hypertension; E11.9 Type 2 diabetes mellitus without complications; F17.200 Nicotine dependence, unspecified, uncomplicated; Z98.890 Other specified postprocedural states; Z79.4 Long term (current) use of insulin; Z79.899 Other long term (current) drug therapy; Z88.8 Allergy status to other drugs, medicaments and biological substances
CPT/HCPCS: 36415; 36569; 71045; 80053; 82550; 82962; 84484; 85025; 93005; 96365; 96366; 96368; 99284; J0696; J0878; 80320; 96375; G0480

== ENCOUNTER 2020-08-29 16:56 | Observation (INO) | payer MEDICARE ==
[2020-08-30] MEDS ORDERED: PIPERACILLIN/TAZOBACTAM 3.375 3.375 GM/50 ML BAG IV ONE (02:39)
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
--- NOTE | 2020-08-30 03:24 | XRay Report ---
RIGHT FOOT 3 VIEW(S) INDICATION / CLINICAL INFORMATION: foot pain COMPARISON: MRI from 07/27/2020. Radiograph from 07/22/2020. FINDINGS: Stable amputation changes at the first and fourth MTP joints and fifth metatarsal. There is increasin g abnormal periosteal reaction and endosteal scalloping of the first metatarsal, extending to the bas e. New cortical erosive changes are seen at the medial aspect of the medial cuneiform. Second through fifth metatarsals appear unchanged with abnormal lucency extending to the distal metatarsals and cor tical erosive changes of the metatarsal heads. There is new, abnormal widening of the Lisfranc interv al. There is diffuse soft tissue swelling. No soft tissue gas identified. Large plantar skin wound ap pears stable. Chronic changes at the Achilles tendon insertion of the calcaneus is unchanged. IMPRESSION: Worsening osteomyelitis of the first metatarsal, now extending to the base, and involving the medial cuneiform, with new abnormal widening of the Lisfranc interval. Findings are compatible w ith progressive infection/osteomyelitis. Signer Name: Bert Montana MD Signed: 08/30/2020 3:19 AM Workstation Name: [id number]
[2020-08-30] MEDS ORDERED: CLINDAMYCIN 300 MG/50 mL 300 MG/50 ML BAG IV ONE (03:39)
[2020-08-30 03:46] LABS: Hematocrit 34.8 % (35.5-45.6); Mean Corpuscular HGB Conc 31 % (32-34); Mean Corpuscular Volume 87 fl (84-94); Platelet Count 367 K/mm3 (140-440); Red Blood Count 4.02 M/mm3 (3.65-5.03); Red Cell Distribution Width 17.4 % (13.2-15.2)
[2020-08-30 03:53] LABS: Alanine Aminotransferase 13 units/L (7-56); Albumin 3.4 g/dL (3.9-5); BUN/Creatinine Ratio 16; Blood Urea Nitrogen 16 mg/dL (9-20); Calcium 9.4 mg/dL (8.4-10.2); Hemolysis Index 16
[2020-08-30] MEDS: HYDROmorphone 1 MG/1 ML INJ IV ONE ×2 (04:39→04:41)
[2020-08-30] MEDS ORDERED: ONDANSETRON 4 MG/2 ML INJ IV PRN (05:36)
[2020-08-30] MEDS ORDERED: DEXTROSE 50% IN WATER (25GM) 50 ML SYRINGE IV PRN (05:36)
[2020-08-30] MEDS ORDERED: MAGNESIUM HYDROXIDE (MOM) ORAL LIQD UDC PO PRN (05:51)
[2020-08-30] MEDS ORDERED: SODIUM CHLORIDE 0.9% 1000 ML 1,000 ML IV SCH (06:00)
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
[2020-08-30] MEDS ORDERED: VANCOMYCIN PHARMACY TO DOSE IV SCH (07:00)
[2020-08-30] MEDS ORDERED: VANCOMYCIN 2,000 MG in SODIUM CHLORIDE 0.9% 500 ML 500 ML IV ONE (08:00)
[2020-08-30] MEDS: INSULIN LISPRO 100 UNIT/ML SUB-Q SCH ×4 (08:38→22:03)
[2020-08-30 10:29] LABS: Total Cells Counted 100
[2020-08-30 10:30] LABS: Platelet Estimate Consistent w Auto; RBC Morphology Normal
--- NOTE | 2020-08-30 10:35 | Event Note ---
Date: 08/30/[address] Cuevas. Studies reviewed-patient has osteomyelitis On IV antibiotics Infectious disease specialist has been consulted Needs wound care
[2020-08-30] MEDS: PIPERACIL/TAZOBACTA 4.5/NS 100 4.5 GM/100 ML VIAL IV SCH ×2 (14:59→20:28)
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
[2020-08-30] MEDS: HEPARIN 5,000 UNIT/1 ML VIAL SUB-Q SCH ×2 (15:00→22:01)
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
--- NOTE | 2020-08-30 18:22 | Vascular Lab Report ---
Duplex arterial Doppler examination of the right lower extremity with spectral analysis INDICATION: Diabetic, right foot ulcer, history of osteomyelitis COMPARISON: 07/25/2020 FINDINGS: Detail is reduced due to the patient's size. Flow is seen throughout the right lower extrem ity to the dorsalis pedis artery. No significant velocity change is seen to suggest a hemodynamically significant segmental stenosis. Waveforms are monophasic in most areas similar to prior study. No si gnificant changes are seen. Probably benign lymph nodes with large fatty johan are seen in the right i nguinal area. IMPRESSION: Good flow is seen without obvious focal stenosis Signer Name: Jorge Medina MD Signed: 08/30/2020 6:18 PM Workstation Name: [id number]
[2020-08-30] MEDS: HYDROmorphone 1 MG/1 ML INJ IV PRN (20:27)
[2020-08-30] MEDS: VANCOMYCIN 1,750 MG in SODIUM CHLORIDE 0.9% 500 ML 500 ML IV SCH (22:01)
[2020-08-31] MEDS: HYDROmorphone 1 MG/1 ML INJ IV PRN ×4 (03:18→20:50)
[2020-08-31] MEDS: PIPERACIL/TAZOBACTA 4.5/NS 100 4.5 GM/100 ML VIAL IV SCH ×3 (03:26→23:23)
[2020-08-31] MEDS: HEPARIN 5,000 UNIT/1 ML VIAL SUB-Q SCH ×3 (05:18→23:22)
[2020-08-31] MEDS: INSULIN LISPRO 100 UNIT/ML SUB-Q SCH ×4 (09:52→23:35)
[2020-08-31] MEDS: VANCOMYCIN 1,750 MG in SODIUM CHLORIDE 0.9% 500 ML 500 ML IV SCH ×2 (09:56→23:24)
--- NOTE | 2020-08-31 10:51 | Progress Note ---
Assessment and Plan Assessment and plan: #Osteomyelitis of the right foot Continue IV antibiotics ID recommendations appreciated Patient does not want to have RLE amputation so for now, plan to discharge on long-term IV antibiotics PICC line ordered #Hypertension Resume home medications #Diabetic mellitus, diabetic foot ulcer Management as per above Need to have tight blood glucose control Sliding scale insulin Follow-up with PCP for blood glucose monitoring #DVT prophylaxis-Lovenox Full code History Interval history: Patient seen and examined at bedside this morning Does not want right lower extremity amputation Plan to place a PICC line for IV antibiotics Hospitalist Physical - Physical exam Narrative exam: VITAL SIGNS: Reviewed. GENERAL: Awake HEAD: No signs of head trauma. EYES: Pupils are equal. Extraocular motions intact. MOUTH: Oropharynx is normal. NECK: No adenopathy, no JVD. CHEST: Chest with diminished breath sounds bilaterally. No wheezes, rales, or rhonchi. CARDIAC: normal S1 and S2, without murmurs, gallops, or rubs. ABDOMEN: Soft, non tender and non distended. No rebound or guarding, and no masses palpated. Bowel Sounds normal. MUSCULOSKELETAL: RLE-previous transmetatarsal amputation, swelling of the right lower extremity distally with discharge. NEUROLOGIC EXAM: Alert and oriented x3. No focal neurologic deficits SKIN: No obvious lesions - Constitutional Vitals: Temp Pulse Resp BP Pulse Ox 98.0 F 88 20 142/78 93 08/31/20 04:56 08/31/20 04:56 08/31/20 09:56 08/31/20 04:56 08/31/20 04:56 Results - Labs CBC & Chem 7: 08/30/20 03:09 08/30/20 03:09 Labs: Laboratory Last Values WBC 11.5 K/mm3 (4.5-11.0) H 08/30/20 03:09 RBC 4.02 M/mm3 (3.65-5.03) 08/30/20 03:09 Hgb 11.0 gm/dl (11.8-15.2) L 08/30/20 03:09 Hct 34.8 % (35.5-45.6) L 08/30/20 03:09 MCV 87 fl (84-94) 08/30/20 03:09 MCH 27 pg (28-32) L 08/30/20 03:09 MCHC 31 % (32-34) L 08/30/20 03:09 RDW 17.4 % (13.2-15.2) H 08/30/20 03:09 Plt Count 367 K/mm3 (140-440) 08/30/20 03:09 Add Manual Diff Complete 08/30/20 03:09 Total Counted 100 08/30/20 03:09 Seg Neuts % (Manual) 63.0 % (40.0-70.0) 08/30/20 03:09 Lymphocytes % (Manual) 28.0 % (13.4-35.0) 08/30/20 03:09 Monocytes % (Manual) 4.0 % (0.0-7.3) 08/30/20 03:09 Eosinophils % (Manual) 2.0 % (0.0-4.3) 08/30/20 03:09 Basophils % (Manual) 3.0 % (0.0-1.8) H 08/30/20 03:09 Nucleated RBC % Not Reportable 08/30/20 03:09 Seg Neutrophils # Man 7.2 K/mm3 (1.8-7.7) 08/30/20 03:09 Band Neutrophils # 0.0 K/mm3 08/30/20 03:09 Lymphocytes # (Manual) 3.2 K/mm3 (1.2-5.4) 08/30/20 03:09 Abs React Lymphs (Man) 0.0 K/mm3 08/30/20 03:09 Monocytes # (Manual) 0.5 K/mm3 (0.0-0.8) 08/30/20 03:09 Eosinophils # (Manual) 0.2 K/mm3 (0.0-0.4) 08/30/20 03:09 Basophils # (Manual) 0.3 K/mm3 (0.0-0.1) H 08/30/20 03:09 Metamyelocytes # 0.0 K/mm3 08/30/20 03:09 Myelocytes # 0.0 K/mm3 08/30/20 03:09 Promyelocytes # 0.0 K/mm3 08/30/20 03:09 Blast Cells # 0.0 K/mm3 08/30/20 03:09 WBC Morphology Not Reportable 08/30/20 03:09 Hypersegmented Neuts Not Reportable 08/30/20 03:09 Hyposegmented Neuts Not Reportable 08/30/20 03:09 Hypogranular Neuts Not Reportable 08/30/20 03:09 Smudge Cells Not Reportable 08/30/20 03:09 Toxic Granulation Not Reportable 08/30/20 03:09 Toxic Vacuolation Not Reportable 08/30/20 03:09 Dohle Bodies Not Reportable 08/30/20 03:09 Pelger-Huet Anomaly Not Reportable 08/30/20 03:09 Gabe Rods Not Reportable 08/30/20 03:09 Platelet Estimate Consistent w auto 08/30/20 03:09 Clumped Platelets Not Reportable 08/30/20 03:09 Plt Clumps, EDTA Not Reportable 08/30/20 03:09 Large Platelets Not Reportable 08/30/20 03:09 Giant Platelets Not Reportable 08/30/20 03:09 Platelet Satelliting Not Reportable 08/30/20 03:09 Plt Morphology Comment Not Reportable 08/30/20 03:09 RBC Morphology Normal 08/30/20 03:09 Dimorphic RBCs Not Reportable 08/30/20 03:09 Polychromasia Not Reportable 08/30/20 03:09 Hypochromasia Not Reportable 08/30/20 03:09 Poikilocytosis Not Reportable 08/30/20 03:09 Anisocytosis Not Reportable 08/30/20 03:09 Microcytosis Not Reportable 08/30/20 03:09 Macrocytosis Not Reportable 08/30/20 03:09 Spherocytes Not Reportable 08/30/20 03:09 Pappenheimer Bodies Not Reportable 08/30/20 03:09 Sickle Cells Not Reportable 08/30/20 03:09 Target Cells Not Reportable 08/30/20 03:09 Tear Drop Cells Not Reportable 08/30/20 03:09 Ovalocytes Not Reportable 08/30/20 03:09 Helmet Cells Not Reportable 08/30/20 03:09 [place] Bodies Not Reportable 08/30/20 03:09 [place] Rings Not Reportable 08/30/20 03:09 [place] Cells Not Reportable 08/30/20 03:09 Bite Cells Not Reportable 08/30/20 03:09 Crenated Cell Not Reportable 08/30/20 03:09 Elliptocytes Not Reportable 08/30/20 03:09 Acanthocytes (Spur) Not Reportable 08/30/20 03:09 Rouleaux Not Reportable 08/30/20 03:09 Hemoglobin C Crystals Not Reportable 08/30/20 03:09 Schistocytes Not Reportable 08/30/20 03:09 Malaria parasites Not Reportable 08/30/20 03:09 Mike Bodies Not Reportable 08/30/20 03:09 Hem Pathologist Commnt No 08/30/20 03:09 Sodium 134 mmol/L (137-145) L 08/30/20 03:09 Potassium 4.0 mmol/L (3.6-5.0) 08/30/20 03:09 Chloride 95.9 mmol/L (98-107) L 08/30/20 03:09 Carbon Dioxide 31 mmol/L (22-30) H 08/30/20 03:09 Anion Gap 11 mmol/L 08/30/20 03:09 BUN 16 mg/dL (9-20) 08/30/20 03:09 Creatinine 1.0 mg/dL (0.8-1.3) 08/30/20 03:09 Estimated GFR > 60 ml/min 08/30/20 03:09 BUN/Creatinine Ratio 16 % 08/30/20 03:09 Glucose 281 mg/dL (75-100) H 08/30/20 03:09 POC Glucose 213 mg/dL (70-105) H 08/31/20 07:39 Lactic Acid 0.80 mmol/L (0.7-2.0) 08/30/20 07:46 Calcium 9.4 mg/dL (8.4-10.2) 08/30/20 03:09 Total Bilirubin 0.80 mg/dL (0.1-1.2) 08/30/20 03:09 AST 18 units/L (5-40) 08/30/20 03:09 ALT 13 units/L (7-56) 08/30/20 03:09 Alkaline Phosphatase 119 units/L (35-129) 08/30/20 03:09 Total Protein 8.0 g/dL (6.3-8.2) 08/30/20 03:09 Albumin 3.4 g/dL (3.9-5) L 08/30/20 03:09 Albumin/Globulin Ratio 0.7 % 08/30/20 03:09 Microbiology: Microbiology 08/30/20 03:01 Peripheral/Venous Blood Culture - Preliminary NO GROWTH AFTER 24 HOURS 08/30/20 03:09 Peripheral/Venous Blood Culture - Preliminary NO GROWTH AFTER 24 HOURS Fraser/IV: Voiding Method Urinal Active Medications - Current Medications Current Medications: Generic Name Dose Route Start Last Admin Trade Name Freq PRN Reason Stop Dose Admin Dextrose 0 ml 08/30/20 05:36 Dextrose 50% In Water (25gm) 50 Ml Syringe IV Q30MIN PRN Hypoglycemia Protocol Heparin Sodium (Porcine) 5,000 unit 08/30/20 14:00 08/31/20 05:18 Heparin 5,000 Unit/1 Ml Vial SUB-Q 5,000 unit Q8HR IRMA Administration Hydromorphone HCl 0.5 mg 08/30/20 19:45 08/31/20 09:56 Hydromorphone 1 Mg/1 Ml Inj IV 0.5 mg Q4H PRN Administration Pain , Severe (7-10) Sodium Chloride 1,000 mls @ 75 mls/hr 08/30/20 06:00 08/30/20 10:22 Nacl 0.9% 1000 Ml IV 75 mls/hr DIRECT IRMA Administration Piperacillin Sod/Tazobactam Sod 4.5 gm in 100 mls @ 200 mls/hr 08/30/20 12:00 08/31/20 03:26 Zosyn/Ns 4.5gm/100ml IV 200 mls/hr Q8H IRMA Administration Protocol Vancomycin HCl 1,750 mg/ 535 mls @ 333.333 mls/hr 08/30/20 22:00 08/31/20 09:56 Sodium Chloride IV 333.333 mls/hr Q12HR IRMA Administration Insulin Human Lispro 0 unit 08/30/20 07:30 08/31/20 09:52 Insulin Lispro 100 Unit/Ml SUB-Q 3 unit ACHS IRMA Administration Protocol Magnesium Hydroxide 30 ml 08/30/20 05:51 Magnesium Hydroxide (Mom) Oral Liqd Udc PO Q4H PRN Constipation Ondansetron HCl 4 mg 08/30/20 05:36 Ondansetron 4 Mg/2 Ml Inj IV Q8H PRN Nausea And Vomiting Sodium Chloride 10 ml 08/30/20 10:00 08/31/20 09:52 Sodium Chloride 0.9% 10 Ml Flush Syringe IV 10 ml BID IRMA Administration Sodium Chloride 10 ml 08/30/20 05:36 Sodium Chloride 0.9% 10 Ml Flush Syringe IV PRN PRN LINE FLUSH Nutrition/Malnutrition Assess - Dietary Evaluation Nutrition/Malnutrition Findings: Nutrition Notes Start: 08/30/20 12:58 Freq: Status: Active Protocol: Document 08/30/20 12:58 AL (Rec: 08/30/20 13:19 AL [id number]) Co-Sign 08/30/20 12:58 LP Nutrition Notes Need for Assessment generated from: MD Order,Education Initial or Follow up Assessment Current Diagnosis Diabetes,Hypertension Other Pertinent Diagnosis Left BKA, Diabetic Foot ulcer Current Diet Cardiac/Consistent CHO Labs/Tests BG 281 Pertinent Medications Reviewed Height 6 ft 3 in Weight 111.1 kg [place] Body Weight (kg) 89.09 BMI 30.6 Intake Prior to Admission Excellent Weight Status Obese Subjective/Other Information MD order for diet education. Pt was previously at [facility] in July and since then has a place to live. At home, pt relies on tv dinners and Oodles and Noodles. Pt admits to drinking high sugar beverages and states that he wants to stop. Education covered strategies for consistent CHO, low sodium options, and importance of drinking water. Pt ate pizza last night d/t extreme hunger and ate 100% of breakfast this morning. No appetite loss noted. Percent of energy/protein needs met: 88%/70% Burn Absent Trauma Absent GI Symptoms None Current % PO Good (75-100%) Minimum of two criteria No #1 Nutrition Diagnosis Food and nutrition-related knowledge deficit Etiology T2DM, HTN As Evidenced by Signs and Symptoms pt request diet education information Is patient on ventilator? No Is Patient Ambulatory and/or Out of Bed Yes REE-([place]-St. Jeor-ambulatory/OOB) [ 2680.119 [id number]] Kcal/Kg value to use for calculation 20 Approximate Energy Requirements Using 2222 kcal/Kg Calculation Used for Recommendations Kcal/kg Additional Notes Protein: 122-146 g (1.25-1.5 AdjBW 97.68 kg) Fluid: 1 ml/kcal Nutrition Intervention Change Diet Order: Continue Cardiac/Consistent CHO diet Add Supplement/Snack (indicate name/kcal Ensure HP BID /protein ) Provides kCal: 320 Provides Protein (gm) 32 Teaching Recipient Patient Learning Readiness Good Teaching Methods Discussion,Handout Response to Teaching Verbalize understanding Education Handouts Provided Carb Counting for People with Diabetes Hypertension Nutiritoin Therapy Barriers to Learning No Barriers RD phone number provided Yes Patient aware of follow up options Yes Goal #1 Meet 75 of total energy and protein needs. Anticipated Discharge Needs: Cardiac/Consistent CHO diet Follow-Up By: 09/05/20 Additional Comments F/U for intakes and ONS tolerance
--- NOTE | 2020-08-31 12:32 | Progress Note ---
Assessment and Plan Cultures: Blood culture no growth so far A/P: 50-year-old man past medical history diabetes, hypertension, previous left BKA admitted with right foot osteo- #Right foot osteomyelitis: Patient refusing surgical amputation at this time. Liss salazar was seen at [facility] in February with noted osteo at that time (and likely known well before that). Has previously refused surgery. Was homeless at the time and IV antibiotics were not recommended. He was discharged with Augmentin and Cipro at the time was was evidently not successful. No record of ID follow up. Has historical cultures with mixed enteric martínez, Proteus, VRE. May not be indicative of current infections. #Diabetes: tight glycemic control for best outcomes. #PAD: History of previous left BKA. Arterial Doppler showing good flow in the right leg. Recs: -Continue empiric vancomycin and Zosyn for now -Obtain CRP -Discussed with my office that we have previously tried to obtain outpatient IV antibiotics for this patient. It was difficult to get them to him as he was home almost at this time and many doses went on received and wasted. As such compliance was an issue. Due to this recommend discharging with plans to attend my office for dalbavancin infusions. Would not need PICC line for this. -Ordered EKG -If QTC less than 500 ms would also discharge with levofloxacin 750 mg every 24 hours to complete 6 weeks given the history of Proteus in his wounds. Thank you for the consult, we will continue to follow. Drake Pink MD [facility] O: [phone] F: [phone] Subjective Date of service: 08/31/20 Interval history: Afebrile, no acute changes at present. Blood cultures remain no growth so far. Imaging personally reviewed: Right leg arterial duplex: Good flow Objective - Exam Narrative Exam: Physical Exam: Constitutional: Alert, cooperative. No acute distress Head, Ears, Nose: Normocephalic, atraumatic. Eyes: Conjunctivae/corneas clear. No icterus. No ptosis. Neck: Supple, no meningeal signs Oral: dentition fair, no thrush Cardiovascular: S1, S2 normal. Respiratory: Good air entry, clear to auscultation bilaterally GI: Soft, non-tender; bowel sounds normal. No peritoneal signs. Musculoskeletal: Left BKA, right foot with transmetatarsal amputation, swollen, plantar ulcer Skin: No rash or abscess Hem/Lymphatic: No palpable cervical or supraclavicular nodes. No lymphangitis Psych: Mood ok. Affect normal Neurological: Awake, alert, oriented. No gross abnormality - Constitutional Vitals: Vital Signs Temp Pulse Resp BP Pulse Ox 97.6 F 93 H 20 133/67 94 08/31/20 11:41 08/31/20 11:41 08/31/20 11:41 08/31/20 11:41 08/31/20 11:41 Temperature -Last 24 Hours Temperature 97.6 F Temperature 98.7 F Temperature 98.0 F Temperature 98.5 F Temperature 98.5 F Temperature 98.3 F - Labs CBC & Chem 7: 08/31/20 13:41 08/31/20 13:41 Labs: Abnormal lab results 08/30/20 08/30/20 08/30/20 Range/Units 07:48 12:03 15:36 POC Glucose 204 H 230 H 256 H (70-105) mg/dL 08/30/20 08/31/20 Range/Units 21:20 07:39 POC Glucose 272 H 213 H (70-105) mg/dL
[2020-08-31 14:07] LABS: Basophils # (Auto) 0.1 K/mm3 (0.0-0.1); Basophils % (Auto) 0.6 % (0.0-1.8); Eosinophils # (Auto) 0.4 K/mm3 (0.0-0.4); Eosinophils % (Auto) 4.8 % (0.0-4.3); Hemoglobin 9.6 gm/dl (11.8-15.2); Lymphocytes # (Auto) 3.1 K/mm3 (1.2-5.4); Lymphocytes % (Auto) 36.1 % (13.4-35.0); Mean Corpuscular HGB Conc 35 % (32-34); Mean Corpuscular Volume 85 fl (84-94); Monocytes # (Auto) 0.6 K/mm3 (0.0-0.8); Monocytes % (Auto) 7.3 % (0.0-7.3); Platelet Count 318 K/mm3 (140-440); Red Blood Count 3.31 M/mm3 (3.65-5.03); Red Cell Distribution Width 17.2 % (13.2-15.2)
[2020-08-31 15:36] LABS: Blood Urea Nitrogen 13 mg/dL (9-20); Calcium 8.7 mg/dL (8.4-10.2); Hemolysis Index 9
[2020-08-31 15:40] LABS: BUN/Creatinine Ratio 19
[2020-09-01] MEDS: HYDROmorphone 1 MG/1 ML INJ IV PRN ×5 (01:03→21:24)
[2020-09-01] MEDS: PIPERACIL/TAZOBACTA 4.5/NS 100 4.5 GM/100 ML VIAL IV SCH ×3 (04:41→21:38)
[2020-09-01] MEDS: HEPARIN 5,000 UNIT/1 ML VIAL SUB-Q SCH ×3 (05:24→21:29)
[2020-09-01] MEDS: INSULIN LISPRO 100 UNIT/ML SUB-Q SCH ×4 (07:54→22:32)
--- NOTE | 2020-09-01 09:48 | Progress Note ---
Assessment and Plan Assessment and plan: #Osteomyelitis of the right foot Continue vancomycin and zosyn ID recommendations appreciated - Plan for PO levaquin and dalbavancin infusion Patient does not want to have RLE amputation so for now #Hypertension Resume home medications #Diabetic mellitus, diabetic foot ulcer Management as per above Need to have tight blood glucose control Sliding scale insulin Follow-up with PCP for blood glucose monitoring #DVT prophylaxis-Lovenox Full code History Interval history: 08/31. Patient seen and examined at bedside this morning Does not want right lower extremity amputation Plan to place a PICC line for IV antibiotics 09/01. No complaints Does not need a PICC line as per ID CRP ~5 Plan for DC soon Hospitalist Physical - Physical exam Narrative exam: VITAL SIGNS: Reviewed. GENERAL: Awake HEAD: No signs of head trauma. EYES: Pupils are equal. Extraocular motions intact. MOUTH: Oropharynx is normal. NECK: No adenopathy, no JVD. CHEST: Chest with diminished breath sounds bilaterally. No wheezes, rales, or rhonchi. CARDIAC: normal S1 and S2, without murmurs, gallops, or rubs. ABDOMEN: Soft, non tender and non distended. No rebound or guarding, and no masses palpated. Bowel Sounds normal. MUSCULOSKELETAL: RLE-previous transmetatarsal amputation, swelling of the right lower extremity distally with discharge. NEUROLOGIC EXAM: Alert and oriented x3. No focal neurologic deficits SKIN: No obvious lesions - Constitutional Vitals: Temp Pulse Resp BP Pulse Ox 98.9 F 94 H 18 134/85 90 09/01/20 05:29 09/01/20 00:40 09/01/20 05:29 09/01/20 05:29 09/01/20 00:40 Results - Labs CBC & Chem 7: 08/31/20 13:41 08/31/20 13:41 Labs: Laboratory Last Values WBC 8.7 K/mm3 (4.5-11.0) 08/31/20 13:41 RBC 3.31 M/mm3 (3.65-5.03) L 08/31/20 13:41 Hgb 9.6 gm/dl (11.8-15.2) L 08/31/20 13:41 Hct 28.0 % (35.5-45.6) L D 08/31/20 13:41 MCV 85 fl (84-94) 08/31/20 13:41 MCH 29 pg (28-32) 08/31/20 13:41 MCHC 35 % (32-34) H 08/31/20 13:41 RDW 17.2 % (13.2-15.2) H 08/31/20 13:41 Plt Count 318 K/mm3 (140-440) 08/31/20 13:41 Lymph % (Auto) 36.1 % (13.4-35.0) H 08/31/20 13:41 Ogle % (Auto) 7.3 % (0.0-7.3) 08/31/20 13:41 Eos % (Auto) 4.8 % (0.0-4.3) H 08/31/20 13:41 Baso % (Auto) 0.6 % (0.0-1.8) 08/31/20 13:41 Lymph # (Auto) 3.1 K/mm3 (1.2-5.4) 08/31/20 13:41 Ogle # (Auto) 0.6 K/mm3 (0.0-0.8) 08/31/20 13:41 Eos # (Auto) 0.4 K/mm3 (0.0-0.4) 08/31/20 13:41 Baso # (Auto) 0.1 K/mm3 (0.0-0.1) 08/31/20 13:41 Add Manual Diff Complete 08/30/20 03:09 Total Counted 100 08/30/20 03:09 Seg Neutrophils % 51.2 % (40.0-70.0) 08/31/20 13:41 Seg Neuts % (Manual) 63.0 % (40.0-70.0) 08/30/20 03:09 Lymphocytes % (Manual) 28.0 % (13.4-35.0) 08/30/20 03:09 Monocytes % (Manual) 4.0 % (0.0-7.3) 08/30/20 03:09 Eosinophils % (Manual) 2.0 % (0.0-4.3) 08/30/20 03:09 Basophils % (Manual) 3.0 % (0.0-1.8) H 08/30/20 03:09 Nucleated RBC % Not Reportable 08/30/20 03:09 Seg Neutrophils # 4.5 K/mm3 (1.8-7.7) 08/31/20 13:41 Seg Neutrophils # Man 7.2 K/mm3 (1.8-7.7) 08/30/20 03:09 Band Neutrophils # 0.0 K/mm3 08/30/20 03:09 Lymphocytes # (Manual) 3.2 K/mm3 (1.2-5.4) 08/30/20 03:09 Abs React Lymphs (Man) 0.0 K/mm3 08/30/20 03:09 Monocytes # (Manual) 0.5 K/mm3 (0.0-0.8) 08/30/20 03:09 Eosinophils # (Manual) 0.2 K/mm3 (0.0-0.4) 08/30/20 03:09 Basophils # (Manual) 0.3 K/mm3 (0.0-0.1) H 08/30/20 03:09 Metamyelocytes # 0.0 K/mm3 08/30/20 03:09 Myelocytes # 0.0 K/mm3 08/30/20 03:09 Promyelocytes # 0.0 K/mm3 08/30/20 03:09 Blast Cells # 0.0 K/mm3 08/30/20 03:09 WBC Morphology Not Reportable 08/30/20 03:09 Hypersegmented Neuts Not Reportable 08/30/20 03:09 Hyposegmented Neuts Not Reportable 08/30/20 03:09 Hypogranular Neuts Not Reportable 08/30/20 03:09 Smudge Cells Not Reportable 08/30/20 03:09 Toxic Granulation Not Reportable 08/30/20 03:09 Toxic Vacuolation Not Reportable 08/30/20 03:09 Dohle Bodies Not Reportable 08/30/20 03:09 Pelger-Huet Anomaly Not Reportable 08/30/20 03:09 Gabe Rods Not Reportable 08/30/20 03:09 Platelet Estimate Consistent w auto 08/30/20 03:09 Clumped Platelets Not Reportable 08/30/20 03:09 Plt Clumps, EDTA Not Reportable 08/30/20 03:09 Large Platelets Not Reportable 08/30/20 03:09 Giant Platelets Not Reportable 08/30/20 03:09 Platelet Satelliting Not Reportable 08/30/20 03:09 Plt Morphology Comment Not Reportable 08/30/20 03:09 RBC Morphology Normal 08/30/20 03:09 Dimorphic RBCs Not Reportable 08/30/20 03:09 Polychromasia Not Reportable 08/30/20 03:09 Hypochromasia Not Reportable 08/30/20 03:09 Poikilocytosis Not Reportable 08/30/20 03:09 Anisocytosis Not Reportable 08/30/20 03:09 Microcytosis Not Reportable 08/30/20 03:09 Macrocytosis Not Reportable 08/30/20 03:09 Spherocytes Not Reportable 08/30/20 03:09 Pappenheimer Bodies Not Reportable 08/30/20 03:09 Sickle Cells Not Reportable 08/30/20 03:09 Target Cells Not Reportable 08/30/20 03:09 Tear Drop Cells Not Reportable 08/30/20 03:09 Ovalocytes Not Reportable 08/30/20 03:09 Helmet Cells Not Reportable 08/30/20 03:09 [place] Bodies Not Reportable 08/30/20 03:09 [place] Rings Not Reportable 08/30/20 03:09 [place] Cells Not Reportable 08/30/20 03:09 Bite Cells Not Reportable 08/30/20 03:09 Crenated Cell Not Reportable 08/30/20 03:09 Elliptocytes Not Reportable 08/30/20 03:09 Acanthocytes (Spur) Not Reportable 08/30/20 03:09 Rouleaux Not Reportable 08/30/20 03:09 Hemoglobin C Crystals Not Reportable 08/30/20 03:09 Schistocytes Not Reportable 08/30/20 03:09 Malaria parasites Not Reportable 08/30/20 03:09 Mike Bodies Not Reportable 08/30/20 03:09 Hem Pathologist Commnt No 08/30/20 03:09 Sodium 138 mmol/L (137-145) 08/31/20 13:41 Potassium 3.9 mmol/L (3.6-5.0) 08/31/20 13:41 Chloride 102.4 mmol/L (98-107) 08/31/20 13:41 Carbon Dioxide 26 mmol/L (22-30) 08/31/20 13:41 Anion Gap 14 mmol/L 08/31/20 13:41 BUN 13 mg/dL (9-20) 08/31/20 13:41 Creatinine 0.7 mg/dL (0.8-1.3) L 08/31/20 13:41 Estimated GFR > 60 ml/min 08/31/20 13:41 BUN/Creatinine Ratio 19 % 08/31/20 13:41 Glucose 200 mg/dL (75-100) H 08/31/20 13:41 POC Glucose 159 mg/dL (70-105) H 09/01/20 07:32 Lactic Acid 0.80 mmol/L (0.7-2.0) 08/30/20 07:46 Calcium 8.7 mg/dL (8.4-10.2) 08/31/20 13:41 Total Bilirubin 0.80 mg/dL (0.1-1.2) 08/30/20 03:09 AST 18 units/L (5-40) 08/30/20 03:09 ALT 13 units/L (7-56) 08/30/20 03:09 Alkaline Phosphatase 119 units/L (35-129) 08/30/20 03:09 C-Reactive Protein 5.10 mg/dL (0.00-1.30) H 09/01/20 08:34 Total Protein 8.0 g/dL (6.3-8.2) 08/30/20 03:09 Albumin 3.4 g/dL (3.9-5) L 08/30/20 03:09 Albumin/Globulin Ratio 0.7 % 08/30/20 03:09 Microbiology: Microbiology 08/30/20 03:01 Peripheral/Venous Blood Culture - Preliminary NO GROWTH AFTER 48 HOURS 08/30/20 03:09 Peripheral/Venous Blood Culture - Preliminary NO GROWTH AFTER 48 HOURS Fraser/IV: Voiding Method Urinal Active Medications - Current Medications Current Medications: Generic Name Dose Route Start Last Admin Trade Name Freq PRN Reason Stop Dose Admin Dextrose 0 ml 08/30/20 05:36 Dextrose 50% In Water (25gm) 50 Ml Syringe IV Q30MIN PRN Hypoglycemia Protocol Heparin Sodium (Porcine) 5,000 unit 08/30/20 14:00 09/01/20 05:24 Heparin 5,000 Unit/1 Ml Vial SUB-Q 5,000 unit Q8HR IRMA Administration Hydromorphone HCl 0.5 mg 08/30/20 19:45 09/01/20 05:08 Hydromorphone 1 Mg/1 Ml Inj IV 0.5 mg Q4H PRN Administration Pain , Severe (7-10) Sodium Chloride 1,000 mls @ 75 mls/hr 08/30/20 06:00 08/30/20 10:22 Nacl 0.9% 1000 Ml IV 75 mls/hr DIRECT IRMA Administration Piperacillin Sod/Tazobactam Sod 4.5 gm in 100 mls @ 200 mls/hr 08/30/20 12:00 09/01/20 04:41 Zosyn/Ns 4.5gm/100ml IV 200 mls/hr Q8H IRMA Administration Protocol Vancomycin HCl 1,750 mg/ 535 mls @ 333.333 mls/hr 08/30/20 22:00 08/31/20 23:24 Sodium Chloride IV 333.333 mls/hr Q12HR IRMA Administration Insulin Human Lispro 0 unit 08/30/20 07:30 09/01/20 07:54 Insulin Lispro 100 Unit/Ml SUB-Q 2 unit ACHS IRMA Administration Protocol Magnesium Hydroxide 30 ml 08/30/20 05:51 Magnesium Hydroxide (Mom) Oral Liqd Udc PO Q4H PRN Constipation Ondansetron HCl 4 mg 08/30/20 05:36 09/01/20 05:24 Ondansetron 4 Mg/2 Ml Inj IV 4 mg Q8H PRN Administration Nausea And Vomiting Sodium Chloride 10 ml 08/30/20 10:00 08/31/20 23:25 Sodium Chloride 0.9% 10 Ml Flush Syringe IV 10 ml BID IRMA Administration Sodium Chloride 10 ml 08/30/20 05:36 Sodium Chloride 0.9% 10 Ml Flush Syringe IV PRN PRN LINE FLUSH Nutrition/Malnutrition Assess - Dietary Evaluation Nutrition/Malnutrition Findings: Nutrition Notes Start: 08/30/20 12:58 Freq: Status: Active Protocol: Document 08/30/20 12:58 AL (Rec: 08/30/20 13:19 AL [id number]) Co-Sign 08/30/20 12:58 LP Nutrition Notes Need for Assessment generated from: MD Order,Education Initial or Follow up Assessment Current Diagnosis Diabetes,Hypertension Other Pertinent Diagnosis Left BKA, Diabetic Foot ulcer Current Diet Cardiac/Consistent CHO Labs/Tests BG 281 Pertinent Medications Reviewed Height 6 ft 3 in Weight 111.1 kg [place] Body Weight (kg) 89.09 BMI 30.6 Intake Prior to Admission Excellent Weight Status Obese Subjective/Other Information MD order for diet education. Pt was previously at [facility] in July and since then has a place to live. At home, pt relies on tv dinners and Oodles and Noodles. Pt admits to drinking high sugar beverages and states that he wants to stop. Education covered strategies for consistent CHO, low sodium options, and importance of drinking water. Pt ate pizza last night d/t extreme hunger and ate 100% of breakfast this morning. No appetite loss noted. Percent of energy/protein needs met: 88%/70% Burn Absent Trauma Absent GI Symptoms None Current % PO Good (75-100%) Minimum of two criteria No #1 Nutrition Diagnosis Food and nutrition-related knowledge deficit Etiology T2DM, HTN As Evidenced by Signs and Symptoms pt request diet education information Is patient on ventilator? No Is Patient Ambulatory and/or Out of Bed Yes REE-([place] Jeor-ambulatory/OOB) [ 2680.119 NUTR.MSJOOB] Kcal/Kg value to use for calculation 20 Approximate Energy Requirements Using 2222 kcal/Kg Calculation Used for Recommendations Kcal/kg Additional Notes Protein: 122-146 g (1.25-1.5 AdjBW 97.68 kg) Fluid: 1 ml/kcal Nutrition Intervention Change Diet Order: Continue Cardiac/Consistent CHO diet Add Supplement/Snack (indicate name/kcal Ensure HP BID /protein ) Provides kCal: 320 Provides Protein (gm) 32 Teaching Recipient Patient Learning Readiness Good Teaching Methods Discussion,Handout Response to Teaching Verbalize understanding Education Handouts Provided Carb Counting for People with Diabetes Hypertension Nutiritoin Therapy Barriers to Learning No Barriers RD phone number provided Yes Patient aware of follow up options Yes Goal #1 Meet 75 of total energy and protein needs. Anticipated Discharge Needs: Cardiac/Consistent CHO diet Follow-Up By: 09/05/20 Additional Comments F/U for intakes and ONS tolerance
[2020-09-01] MEDS: VANCOMYCIN 1,750 MG in SODIUM CHLORIDE 0.9% 500 ML 500 ML IV SCH ×2 (10:49→21:39)
--- NOTE | 2020-09-01 14:26 | Discharge Summary ---
Providers - Providers Date of Admission: 08/30/20 04:46 Date of discharge: 09/02/20 Attending physician: LIAT OLIVO 08/30/20 04:45 Consult to Physician [CONS] Routine Comment: Consulting Provider: MIKEY MESSINA Physician Instructions: Reason For Exam: osteo 08/30/20 05:36 Consult to Dietitian/Nutrition [CONS] Routine Physician Instructions: Reason For Exam: Reason for Consult: Diet education 08/30/20 06:14 Consult to Wound/ET Nurse [CONS] Routine Reason For Exam: wound eval 08/30/20 15:43 Consult to Physician [CONS] Routine Comment: Consulting Provider: QIANA BOX Physician Instructions: Reason For Exam: evaluate right foot Primary care physician: INSTRUCTIONAL TECHNOLOGY DIRECTOR Hospitalization Condition: Critical Hospital course: 50-year-old male with known history of diabetes mellitus, hypertension, left below-knee amputation presenting to the emergency room today complaining of large ulcer and bleeding from the right foot. He has also had some pain which seems to be worsening. Denies any fever or chills, no chest pain or shortness of breath, no nausea vomiting and no diarrhea. Patient denies any sick contacts and no recent travel. Denies any contact with anyone with COVID-19. Work-up in the emergency room: X-ray of the right foot reveals-Worsening osteomyelitis of the first metatarsal, now extending to the base, and involving the medial cuneiform, with new abnormal widening of the Lisfranc interval. Findings are compatible with progressive infection/osteomyelitis. Patient was admitted with diabetic foot ulcer /osteomyelitis of the right foot. He was started on IV vancomycin and zosyn. ID and surgery was consulted. Surgery advised amputation but he refused. He was maintained on antibiotics. At discharged, ID recommended IV dalbavancin which he will received at the infusion center. No PICC line needed. Due to presence of proteus in wound, he will also be discharged on PO levaquin to complete in 6 weeks. His QTC is <500. He will continue infusion at the infusion center. He is stable to be discharged. I have informed social work/case management, Disposition: [id number] HOME UNDER HOME [facility] Time spent for discharge: 35 mins - Discharge Diagnoses (1) DM foot ulcer Status: Acute Qualifiers: Diabetic foot ulcer location: unspecified part of foot Diabetes mellitus type: type 2 Laterality: right Non-pressure ulcer stage: unspecified non- pressure ulcer stage Qualified Code(s): E11.621 - Type 2 diabetes mellitus with foot ulcer; L97.519 - Non-pressure chronic ulcer of other part of right foot with unspecified severity (2) Osteomyelitis of right foot Status: Acute Qualifiers: Osteomyelitis type: unspecified type Qualified Code(s): M86.9 - Osteomyelitis, unspecified Core Measure Documentation - Palliative Care Palliative Care/ Comfort Measures: Not Applicable - Core Measures Any of the following diagnoses?: none Exam - Physical Exam Narrative exam: VITAL SIGNS: Reviewed. GENERAL: Awake HEAD: No signs of head trauma. EYES: Pupils are equal. Extraocular motions intact. MOUTH: Oropharynx is normal. NECK: No adenopathy, no JVD. CHEST: Chest with diminished breath sounds bilaterally. No wheezes, rales, or rhonchi. CARDIAC: normal S1 and S2, without murmurs, gallops, or rubs. ABDOMEN: Soft, non tender and non distended. No rebound or guarding, and no masses palpated. Bowel Sounds normal. MUSCULOSKELETAL: RLE-previous transmetatarsal amputation, swelling of the right lower extremity distally with discharge. NEUROLOGIC EXAM: Alert and oriented x3. No focal neurologic deficits SKIN: No obvious lesions - Constitutional Vitals: Temp Pulse Resp BP Pulse Ox 98.9 F 94 H 20 134/85 90 09/01/20 05:29 09/01/20 00:40 09/01/20 10:01 09/01/20 05:29 09/01/20 00:40 Plan Additional Instructions: Continue levaquin as ordered. Proceeed to the infusion center at 9AM for your IV antibiotics. Follow up with infectious disease specialist in 1 week. Follow up with PCP in 1 -2 weeks Follow up with: PRIMARY MD ANITRA [Primary Care Provider] - 3-5 Days LUKE VILLANUEVA MD [Staff Physician] - 7 Days Prescriptions: levoFLOXacin [Levaquin] 750 mg PO QDAY #42 tablet Naproxen 500 mg PO BID #8 tablet
[2020-09-02] MEDS: HYDROmorphone 1 MG/1 ML INJ IV PRN (03:18)
[2020-09-02] MEDS: PIPERACIL/TAZOBACTA 4.5/NS 100 4.5 GM/100 ML VIAL IV SCH (05:51)
[2020-09-02] MEDS: HEPARIN 5,000 UNIT/1 ML VIAL SUB-Q SCH (05:51)
[2020-09-02 08:15] VITALS: BP 133/86
== END 2020-09-02 09:45 | disposition home health service (06) ==
LOC: ED 16:56 → 3B-SURG 08-30 04:46
PROVIDERS: ADMIT Internal Medicine Geriatric Medicine; ATTEND Internal Medicine
DX: E11.621 Type 2 diabetes mellitus with foot ulcer (principal); L97.519 Non-pressure chronic ulcer of other part of right foot with unspecified severity; M86.9 Osteomyelitis, unspecified; I73.9 Peripheral vascular disease, unspecified; I10 Essential (primary) hypertension; F17.210 Nicotine dependence, cigarettes, uncomplicated; Z98.890 Other specified postprocedural states; Z79.82 Long term (current) use of aspirin; Z79.4 Long term (current) use of insulin
CPT/HCPCS: 36415; 73620; 80048; 80053; 80202; 82140; 82962; 85025; 86140; 87040; 93005; 93926; 96365; 96366; 96367; 96368; 96372; 96375; 96376; 99291; G0378; J1170; J1644; J2405; J2543; J3370; J7030; J7040; 85007; J1815

== ENCOUNTER 2020-09-18 05:27 | Emergency (ER) | payer OTHER, MEDICARE ==
[2020-09-18] MEDS ORDERED: CYCLOBENZAPRINE 10 MG TAB PO ONE (07:53)
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
[2020-09-18 14:51] VITALS: BP 162/100
== END 2020-09-18 14:10 | disposition home or self-care (01) ==
LOC: ED 05:27
DX: S16.1XXA Strain of muscle, fascia and tendon at neck level, initial encounter (principal); S93.601A Unspecified sprain of right foot, initial encounter; S09.90XA Unspecified injury of head, initial encounter; S80.02XA Contusion of left knee, initial encounter; E11.9 Type 2 diabetes mellitus without complications; I10 Essential (primary) hypertension; E78.5 Hyperlipidemia, unspecified; Z88.8 Allergy status to other drugs, medicaments and biological substances; Z98.890 Other specified postprocedural states; Z79.899 Other long term (current) drug therapy; V09.9XXA Pedestrian injured in unspecified transport accident, initial encounter; Y92.410 Unspecified street and highway as the place of occurrence of the external cause; Y93.89 Activity, other specified; Y99.8 Other external cause status
CPT/HCPCS: 70450; 72125; 82962

== ENCOUNTER 2020-09-21 18:51 | Emergency (ER) | payer MEDICARE, OTHER ==
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
[2020-09-21 20:05] LABS: Basophils # (Auto) 0.1 K/mm3 (0.0-0.1); Basophils % (Auto) 0.9 % (0.0-1.8); Eosinophils # (Auto) 0.1 K/mm3 (0.0-0.4); Eosinophils % (Auto) 1.4 % (0.0-4.3); Hemoglobin 12.8 gm/dl (11.8-15.2); Lymphocytes # (Auto) 3.4 K/mm3 (1.2-5.4); Lymphocytes % (Auto) 33.6 % (13.4-35.0); Mean Corpuscular HGB Conc 33 % (32-34); Mean Corpuscular Volume 86 fl (84-94); Monocytes # (Auto) 0.7 K/mm3 (0.0-0.8); Monocytes % (Auto) 7.1 % (0.0-7.3); Platelet Count 336 K/mm3 (140-440); Red Blood Count 4.54 M/mm3 (3.65-5.03)
[2020-09-21 20:27] LABS: Alanine Aminotransferase 15 units/L (7-56); Albumin 3.5 g/dL (3.9-5); BUN/Creatinine Ratio 17; Blood Urea Nitrogen 17 mg/dL (9-20); Calcium 9.6 mg/dL (8.4-10.2); Hemolysis Index 0
[2020-09-21 23:11] VITALS: BP 148/84
== END 2020-09-22 00:21 | disposition home or self-care (01) ==
LOC: ED 18:51
DX: L97.519 Non-pressure chronic ulcer of other part of right foot with unspecified severity (principal); M79.604 Pain in right leg; I10 Essential (primary) hypertension; E11.9 Type 2 diabetes mellitus without complications; Z98.890 Other specified postprocedural states; Z79.4 Long term (current) use of insulin; Z79.899 Other long term (current) drug therapy; Z88.8 Allergy status to other drugs, medicaments and biological substances
CPT/HCPCS: 36415; 80053; 85025

== ENCOUNTER 2020-10-02 15:06 | Observation (INO) | payer MEDICARE ==
--- NOTE | 2020-10-02 17:42 | Event Note ---
ED Screening Note ED Screening Note: right foot wound was last seen for it 11 days ago and the current dressing has been in place for 11 days he states it has a foul odor he is not seeing wound no fever no n/v/d This initial assessment/diagnostic orders/clinical plan/treatment(s) is/are subject to change based on patients health status, clinical progression and re- assessment by fellow clinical providers in the ED. Further treatment and workup at subsequent clinical providers discretion. Patient/guardian urged not to elope from the ED as their condition may be serious if not clinically assessed and managed. Initial orders include: labs, XR
[2020-10-02 18:09] LABS: Basophils % (Auto) 0.6 % (0.0-1.8); Eosinophils # (Auto) 0.2 K/mm3 (0.0-0.4); Eosinophils % (Auto) 2.4 % (0.0-4.3); Hematocrit 38.4 % (35.5-45.6); Hemoglobin 12.5 gm/dl (11.8-15.2); Lymphocytes # (Auto) 2.4 K/mm3 (1.2-5.4); Lymphocytes % (Auto) 34.7 % (13.4-35.0); Mean Corpuscular HGB Conc 33 % (32-34); Mean Corpuscular Volume 86 fl (84-94); Monocytes # (Auto) 0.5 K/mm3 (0.0-0.8); Monocytes % (Auto) 7.9 % (0.0-7.3); Platelet Count 278 K/mm3 (140-440); Red Blood Count 4.47 M/mm3 (3.65-5.03); Red Cell Distribution Width 17.1 % (13.2-15.2)
[2020-10-02 18:31] LABS: Alanine Aminotransferase 14 units/L (7-56); Albumin 3.1 g/dL (3.9-5); BUN/Creatinine Ratio 13; Blood Urea Nitrogen 10 mg/dL (9-20); Hemolysis Index 17
--- NOTE | 2020-10-02 18:51 | XRay Report ---
RIGHT FOOT 2 VIEWS INDICATION: Right foot wound. COMPARISON: 09/18/2020 FINDINGS: Amputation of the toes is again noted. No acute cortical destruction is seen within the forefoot/midf oot. Hindfoot is not completely included. There is mild medial soft tissue gas similar to the prior. IMPRESSION: 1. No significant change. Persistent mild soft tissue gas superficial medial soft tissues. LEFT KNEE 3 VIEWS INDICATION: Left knee wound. COMPARISON: 09/18/2020 FINDINGS: There is no acute skeletal abnormality. No cortical destruction is seen at the distal stomach. There is mild soft tissue swelling at the distal stump similar to the prior. IMPRESSION: 1. Soft tissue swelling at the distal stump may be slightly increased. Otherwise, there is no signifi cant change; no radiographic evidence of acute osteomyelitis. Signer Name: Mahin Hermosillo MD Signed: 10/02/2020 6:47 PM Workstation Name: [id number]
[2020-10-02] MEDS ORDERED: VANCOMYCIN 2,000 MG in SODIUM CHLORIDE 0.9% 500 ML 500 ML IV ONE (21:48)
[2020-10-02] MEDS ORDERED: CEFEPIME/NS 2 GM/100 ML 2 GM/100 ML BAG IV ONE (21:51)
[2020-10-02] MEDS ORDERED: MORPHINE 2 MG/1 ML INJ IV ONE (21:51)
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
[2020-10-02] MEDS ORDERED: POTASSIUM CHLORIDE ER 20 MEQ TAB PO ONE (22:17)
[2020-10-02] MEDS ORDERED: DEXTROSE 50% IN WATER (25GM) 50 ML SYRINGE IV PRN (22:32)
[2020-10-02] MEDS ORDERED: ONDANSETRON 4 MG/2 ML INJ IV PRN (22:32)
[2020-10-02] MEDS ORDERED: MAGNESIUM HYDROXIDE (MOM) ORAL LIQD UDC PO PRN (22:32)
--- NOTE | 2020-10-02 22:44 | History and Physical Report ---
History of Present Illness Date of examination: 10/02/20 Date of admission: 10/02/20 22:11 Chief complaint: Right foot Pain History of present illness: 50-year-old male with known history of hypertension, diabetes mellitus, left BKA and right foot osteomyelitis presenting to the emergency room today complaining of right lower extremity pain. Was recently admitted in this hospital for right foot osteomyelitis about 4 weeks ago during which he had a PICC line for antibiotics. Patient indicates that he could no longer for the IV antibiotics so he was switched to p.o. antibiotics. Patient was last seen by the infectious disease physician about 2 weeks ago and cannot recall the name of his current medication. Patient indicates that his wound has not gotten better and was seen in the emergency room about 10 to 11 days ago during which dressings were changed and sent home. Patient has no change his dressing since his visit to the emergency room. He has also sustained an abrasion to the left knee since his prosthetic foot broke. Work-up in the emergency room today has been unremarkable. Patient is being readmitted for worsening right lower extremity ulcer. Past History Past Medical History: diabetes, hypertension Past Surgical History: Other (Left BKA) Social history: smoking (C) Family history: no significant family history Medications and Allergies Allergies Allergy/AdvReac Type Severity Reaction Status Date / Time acetaminophen [From Vicodin] Allergy Unknown Verified 10/02/20 16:44 exenatide [From Byetta] Allergy Unknown Verified 10/02/20 16:44 hydrocodone [From Vicodin] Allergy Unknown Verified 10/02/20 16:44 pioglitazone [From Actos] Allergy Unknown Verified 10/02/20 16:44 Home Medications Medication Instructions Recorded Confirmed Last Taken Type Aspirin EC [Halfprin EC] 81 mg PO QDAY #30 tablet 07/30/20 08/30/20 Unknown Rx Clopidogrel [Plavix] 75 mg PO QDAY #30 tablet 07/30/20 08/30/20 Unknown Rx Famotidine [Pepcid] 20 mg PO DAILY #30 tablet 07/30/20 08/30/20 Unknown Rx Insulin Glargine [Lantus VIAL] 30 units SUB-Q QHS #10 ml 07/30/20 08/30/20 Unknown Rx Insulin Regular, Human [HumuLIN R] 0 unit SQ AC #1 vial 07/30/20 08/30/20 Unknown Rx Sennosides/Docusate Sodium 1 each PO DAILY #30 tablet 07/30/20 08/30/20 Unknown Rx [Senna-S 8.6-50 mg Tablet] cloNIDine [Catapres] 0.1 mg PO TID #90 tablet 07/30/20 08/30/20 Unknown Rx levoFLOXacin [Levaquin] 750 mg PO QDAY #42 tablet 09/01/20 Unknown Rx Naproxen 500 mg PO BID #8 tablet 09/18/20 Unknown Rx methOCARBAMOL [Robaxin TAB] 500 mg PO Q8H PRN #30 tablet 09/18/20 Unknown Rx oxyCODONE /ACETAMINOPHEN [Percocet 1 tab PO Q6H PRN #10 tablet 09/21/20 Unknown Rx 5/325 mg] Active Meds: Active Medications Dextrose (Dextrose 50% In Water (25gm) 50 Ml Syringe) 50 ml IV Q30MIN PRN; Protocol PRN Reason: Hypoglycemia Dextrose (Dextrose 50% In Water (25gm) 50 Ml Syringe) 50 ml IV Q30MIN PRN; Protocol PRN Reason: Hypoglycemia Diphenhydramine HCl (Diphenhydramine 50 Mg Cap) 25 mg PO ONCE NR Heparin Sodium (Porcine) (Heparin 5,000 Unit/1 Ml Vial) 5,000 unit SUB-Q Q8HR IRMA Vancomycin HCl 2,000 mg/ (Sodium Chloride) 540 mls @ 333 mls/hr IV ONCE ONE; Protocol Stop: 10/02/20 23:26 Sodium Chloride (Nacl 0.9% 1000 Ml) 1,000 mls @ 75 mls/hr IV DIRECT IRMA Cefepime HCl (Cefepime/Ns 2 Gm/100 Ml) 2 gm in 100 mls @ 200 mls/hr IV Q8H [facility]; Protocol Insulin Human Lispro (Insulin Lispro 100 Unit/Ml) 0 unit SUB-Q ACHS [facility]; Protocol Magnesium Hydroxide (Magnesium Hydroxide (Mom) Oral Liqd Udc) 30 ml PO Q4H PRN PRN Reason: Constipation Ondansetron HCl (Ondansetron 4 Mg/2 Ml Inj) 4 mg IV Q8H PRN PRN Reason: Nausea And Vomiting Sodium Chloride (Sodium Chloride 0.9% 10 Ml Flush Syringe) 10 ml IV BID IRMA Sodium Chloride (Sodium Chloride 0.9% 10 Ml Flush Syringe) 10 ml IV PRN PRN PRN Reason: LINE FLUSH Review of Systems Constitutional: no fever, no chills Ears, nose, mouth and throat: no nasal congestion, no sore throat Cardiovascular: no chest pain, no palpitations Respiratory: no cough, no shortness of breath Gastrointestinal: no abdominal pain, no nausea, no vomiting, no diarrhea Genitourinary Male: no dysuria, no hematuria, no flank pain, no nocturia Musculoskeletal: no neck pain, no low back pain Integumentary: no rash, no pruritis Neurological: no headaches, no confusion Psychiatric: no anxiety, no depression Endocrine: no polydipsia, no polyuria, no nocturia Exam - Constitutional Vitals: Temp Pulse Resp BP Pulse Ox 97.3 F L 95 H 15 150/89 97 10/02/20 16:49 10/02/20 22:30 10/02/20 22:30 10/02/20 22:30 10/02/20 22:30 General appearance: Present: no acute distress, well-nourished - EENT Eyes: Present: PERRL, EOM intact. Absent: scleral icterus ENT: hearing intact, clear oral mucosa, dentition normal - Neck Neck: Present: supple, normal ROM - Respiratory Respiratory effort: normal Respiratory: bilateral: CTA - Cardiovascular Rhythm: regular Heart Sounds: Present: S1 & S2. Absent: gallop, systolic murmur, diastolic murmur, rub - Extremities Extremities: No edema, Full ROM, abnormal (Left BKA,Partial amputation of right foot, ulcer and cellulitis on lower 1/3 right foot.) Peripheral Pulses: within normal limits - Abdominal General gastrointestinal: Present: soft, non-tender, non-distended, normal bowel sounds. Absent: mass - Integumentary Integumentary: Present: clear, warm, dry. Absent: rash - Musculoskeletal Musculoskeletal: strength equal bilaterally - Psychiatric Psychiatric: appropriate mood/affect, intact judgment & insight, memory intact, cooperative - Neurologic Neurologic: CNII-XII intact, no focal deficits, moves all extremities Results - Labs CBC & Chem 7: 10/02/20 17:45 10/02/20 17:45 Labs: Abnormal lab results 10/02/20 10/02/20 Range/Units 17:45 17:45 RDW 17.1 H (13.2-15.2) % [place] % (Auto) 7.9 H (0.0-7.3) % Sodium 133 L (137-145) mmol/L Potassium 3.2 L (3.6-5.0) mmol/L Glucose 370 H (75-100) mg/dL Albumin 3.1 L (3.9-5) g/dL Assessment and Plan - Patient Problems (1) Open wound of right lower leg Current Visit: Yes Status: Acute Plan to address problem: Patient restarted on IV antibiotics. Consult placed to infectious disease and wound care team for evaluation. (2) Cellulitis of right leg Current Visit: Yes Status: Acute Plan to address problem: We will continue on IV antibiotics. (3) DVT prophylaxis Current Visit: No Status: Acute Plan to address problem: Patient placed on subcutaneous heparin. (4) Full code status Current Visit: No Status: Acute Plan to address problem: Patient is a full code.
[2020-10-02] MEDS ORDERED: SODIUM CHLORIDE 0.9% 1000 ML 1,000 ML IV SCH (22:45)
[2020-10-02] MEDS ORDERED: diphenhydrAMINE 25 MG CAP PO NR (23:00)
[2020-10-02] MEDS ORDERED: VANCOMYCIN PHARMACY TO DOSE IV SCH (23:00)
[2020-10-02] MEDS ORDERED: diphenhydrAMINE 50 MG CAP PO NR (23:00)
[2020-10-03] MEDS ORDERED: ACETAMINOPHEN 325 MG TAB PO PRN (04:04)
[2020-10-03] MEDS: MORPHINE 2 MG/1 ML INJ IV PRN ×2 (05:39→12:27)
[2020-10-03] MEDS: HEPARIN 5,000 UNIT/1 ML VIAL SUB-Q SCH ×3 (05:44→21:41)
[2020-10-03] MEDS ORDERED: CEFEPIME/NS 2 GM/100 ML 2 GM/100 ML BAG IV SCH (06:00)
[2020-10-03] MEDS: INSULIN LISPRO 100 UNIT/ML SUB-Q SCH ×4 (07:27→21:40)
[2020-10-03] MEDS ORDERED: ASPIRIN EC 81 MG TAB PO SCH (08:00)
[2020-10-03] MEDS ORDERED: VANCOMYCIN 1,750 MG in SODIUM CHLORIDE 0.9% 500 ML 500 ML IV SCH (11:00)
--- NOTE | 2020-10-03 11:29 | Progress Note ---
Assessment and Plan Assessment and plan: #Osteomyelitis with cellulitis Continue cefepime and vancomycin He still refuses amputation of RLE ID evaluation Wound care #Hypertension Resume home medications #Diabetes Mellitus Insulin regimen - lantus and lispro #DVT prophylaxis Patient placed on subcutaneous heparin. History Interval history: 50-year-old male with known history of hypertension, diabetes mellitus, left BKA and right foot osteomyelitis presenting to the emergency room today complaining of right lower extremity pain. Was recently admitted in this hospital for right foot osteomyelitis about 4 weeks ago during which he had a PICC line for antibiotics. Patient indicates that he could no longer for the IV antibiotics so he was switched to p.o. antibiotics. Patient was last seen by the infectious disease physician about 2 weeks ago and cannot recall the name of his current medication. Patient indicates that his wound has not gotten better and was seen in the emergency room about 10 to 11 days ago during which dressings were changed and sent home. Patient has no change his dressing since his visit to the emergency room. He has also sustained an abrasion to the left knee since his prosthetic foot broke. Work-up in the emergency room today has been unremarkable. Patient is being readmitted for worsening right lower extremity ulcer. 10/03. On cefepime and vancomycin. ID evaluation. Patient still refuses amputation. Hospitalist Physical - Physical exam Narrative exam: VITAL SIGNS: Reviewed. GENERAL: Awake HEAD: No signs of head trauma. EYES: Pupils are equal. Extraocular motions intact. MOUTH: Oropharynx is normal. NECK: No adenopathy, no JVD. CHEST: Chest with diminished breath sounds bilaterally. No wheezes, rales, or rhonchi. CARDIAC: normal S1 and S2, without murmurs, gallops, or rubs. ABDOMEN: Soft, non tender and non distended. No rebound or guarding, and no masses palpated. Bowel Sounds normal. MUSCULOSKELETAL: Left BKA. Right LE - chronic venous stasis changes with NEUROLOGIC EXAM: Alert and oriented x3. No focal neurologic deficits SKIN: No obvious lesions - Constitutional Vitals: Temp Pulse Resp BP Pulse Ox 98.8 F 95 H 20 149/91 96 10/03/20 07:59 10/03/20 07:59 10/03/20 07:59 10/03/20 07:59 10/03/20 07:59 General appearance: Present: no acute distress Results - Labs CBC & Chem 7: 10/02/20 17:45 10/02/20 17:45 Labs: Laboratory Last Values WBC 6.8 K/mm3 (4.5-11.0) 10/02/20 17:45 RBC 4.47 M/mm3 (3.65-5.03) 10/02/20 17:45 Hgb 12.5 gm/dl (11.8-15.2) 10/02/20 17:45 Hct 38.4 % (35.5-45.6) 10/02/20 17:45 MCV 86 fl (84-94) 10/02/20 17:45 MCH 28 pg (28-32) 10/02/20 17:45 MCHC 33 % (32-34) 10/02/20 17:45 RDW 17.1 % (13.2-15.2) H 10/02/20 17:45 Plt Count 278 K/mm3 (140-440) 10/02/20 17:45 Lymph % (Auto) 34.7 % (13.4-35.0) 10/02/20 17:45 [place] % (Auto) 7.9 % (0.0-7.3) H 10/02/20 17:45 Eos % (Auto) 2.4 % (0.0-4.3) 10/02/20 17:45 Baso % (Auto) 0.6 % (0.0-1.8) 10/02/20 17:45 Lymph # (Auto) 2.4 K/mm3 (1.2-5.4) 10/02/20 17:45 [place] # (Auto) 0.5 K/mm3 (0.0-0.8) 10/02/20 17:45 Eos # (Auto) 0.2 K/mm3 (0.0-0.4) 10/02/20 17:45 Baso # (Auto) 0.0 K/mm3 (0.0-0.1) 10/02/20 17:45 Seg Neutrophils % 54.4 % (40.0-70.0) 10/02/20 17:45 Seg Neutrophils # 3.7 K/mm3 (1.8-7.7) 10/02/20 17:45 Sodium 133 mmol/L (137-145) L 10/02/20 17:45 Potassium 3.2 mmol/L (3.6-5.0) L 10/02/20 17:45 Chloride 98.4 mmol/L (98-107) 10/02/20 17:45 Carbon Dioxide 28 mmol/L (22-30) 10/02/20 17:45 Anion Gap 10 mmol/L 10/02/20 17:45 BUN 10 mg/dL (9-20) 10/02/20 17:45 Creatinine 0.8 mg/dL (0.8-1.3) 10/02/20 17:45 Estimated GFR > 60 ml/min 10/02/20 17:45 BUN/Creatinine Ratio 13 % 10/02/20 17:45 Glucose 370 mg/dL (75-100) H 10/02/20 17:45 POC Glucose 322 mg/dL (70-105) H 10/03/20 08:29 Lactic Acid 1.90 mmol/L (0.7-2.0) 10/02/20 17:45 Calcium 9.0 mg/dL (8.4-10.2) 10/02/20 17:45 Total Bilirubin 0.30 mg/dL (0.1-1.2) 10/02/20 17:45 AST 17 units/L (5-40) 10/02/20 17:45 ALT 14 units/L (7-56) 10/02/20 17:45 Alkaline Phosphatase 124 units/L (35-129) 10/02/20 17:45 Total Protein 7.7 g/dL (6.3-8.2) 10/02/20 17:45 Albumin 3.1 g/dL (3.9-5) L 10/02/20 17:45 Albumin/Globulin Ratio 0.7 % 10/02/20 17:45 Microbiology: Microbiology 10/02/20 17:45 Peripheral/Venous Blood Culture - Preliminary Culture in Progress 10/02/20 17:45 Peripheral/Venous Blood Culture - Preliminary Culture in Progress Fraser/IV: Voiding Method Urinal Active Medications - Current Medications Current Medications: Generic Name Dose Route Start Last Admin Trade Name Freq PRN Reason Stop Dose Admin Acetaminophen 650 mg 10/03/20 04:04 Acetaminophen 325 Mg Tab PO Q4H PRN Pain, Mild (1-3)/Fever Aspirin 81 mg 10/03/20 08:00 Aspirin Ec 81 Mg Tab PO QDAY [facility] Dextrose 50 ml 10/02/20 22:32 10/03/20 08:08 Dextrose 50% In Water (25gm) 50 Ml Syringe IV 20 ml Q30MIN PRN Administration Hypoglycemia Protocol Heparin Sodium (Porcine) 5,000 unit 10/03/20 06:00 10/03/20 05:44 Heparin 5,000 Unit/1 Ml Vial SUB-Q 5,000 unit Q8HR IRMA Administration Sodium Chloride 1,000 mls @ 75 mls/hr 10/02/20 22:45 10/02/20 22:53 Nacl 0.9% 1000 Ml IV 75 mls/hr DIRECT IRMA Administration Cefepime HCl 2 gm in 100 mls @ 200 mls/hr 10/03/20 06:00 10/03/20 05:44 Cefepime/Ns 2 Gm/100 Ml IV 200 mls/hr Q8H IRMA Administration Protocol Vancomycin HCl 1,750 mg/ 535 mls @ 333.333 mls/hr 10/03/20 11:00 Sodium Chloride IV Q12H [facility] Insulin Glargine 15 units 10/03/20 08:00 Insulin Glargine 100 Units/Ml SUB-Q BID [facility] Insulin Human Lispro 0 unit 10/03/20 07:30 10/03/20 07:27 Insulin Lispro 100 Unit/Ml SUB-Q Not Given ACHS [facility] Protocol Magnesium Hydroxide 30 ml 10/02/20 22:32 Magnesium Hydroxide (Mom) Oral Liqd Udc PO Q4H PRN Constipation Morphine Sulfate 2 mg 10/03/20 01:00 10/03/20 05:39 Morphine 2 Mg/1 Ml Inj IV 2 mg Q4H PRN Administration Pain, Moderate (4-6) Ondansetron HCl 4 mg 10/02/20 22:32 Ondansetron 4 Mg/2 Ml Inj IV Q8H PRN Nausea And Vomiting Oxycodone/Acetaminophen 1 tab 10/03/20 07:49 Oxycodone /Acetaminophen 5-325mg Tab PO Q6H PRN Pain, Moderate (4-6) Sodium Chloride 10 ml 10/03/20 08:00 Sodium Chloride 0.9% 10 Ml Flush Syringe IV BID IRMA Sodium Chloride 10 ml 10/02/20 22:32 Sodium Chloride 0.9% 10 Ml Flush Syringe IV PRN PRN LINE FLUSH
[2020-10-03] MEDS: INSULIN GLARGINE 100 UNITS/ML SUB-Q SCH ×2 (12:22→21:42)
--- NOTE | 2020-10-03 14:02 | Consultation ---
History of Present Illness - Reason for Consult Consult date: 10/03/20 R foot infection Requesting physician: CORTEZ PROCTOR - History of Present Illness The patient is a 50-year-old male with diabetes, hypertension, left BKA was admitted to the hospital with complaints of right lower extremity pain. Patient was recently admitted to the hospital with right foot osteomyelitis. He is known to us from his multiple recent hospitalizations. He has been treated with IV and oral antibiotics. And came to the hospital due to increasing pain, denies any fever or chills. Denies nausea, vomiting. He is doing his own wound care at home. Review of Systems: General: no fevers,chills or rigors HEENT: no new visual disturbance Respiratory: No cough, sputum, hemoptysis or shortness of breath Cardiovascular: No chest pain, syncope Gastrointestinal: No nausea, vomiting or diarrhea Genitourinary: No dysuria or hematuria Musculoskeletal: No new or worsening neck pain or back pain Neurologic: No headaches, seizures Hematologic: No easy bruising or bleeding Endocrine: No night sweats or acute weight loss Skin: negative for rash, jaundice Psychiatric: No suicidal or homicidal ideation Past History Past Medical History: diabetes, hypertension Past Surgical History: Other (Left BKA) Social history: smoking (C) Family history: no significant family history Medications and Allergies Allergies Allergy/AdvReac Type Severity Reaction Status Date / Time acetaminophen [From Vicodin] Allergy Unknown Verified 10/02/20 16:44 exenatide [From Byetta] Allergy Unknown Verified 10/02/20 16:44 hydrocodone [From Vicodin] Allergy Unknown Verified 10/02/20 16:44 pioglitazone [From Actos] Allergy Unknown Verified 10/02/20 16:44 Home Medications Medication Instructions Recorded Confirmed Last Taken Type Aspirin EC [Halfprin EC] 81 mg PO QDAY #30 tablet 07/30/20 08/30/20 Unknown Rx Clopidogrel [Plavix] 75 mg PO QDAY #30 tablet 07/30/20 08/30/20 Unknown Rx Famotidine [Pepcid] 20 mg PO DAILY #30 tablet 07/30/20 08/30/20 Unknown Rx Insulin Glargine [Lantus VIAL] 30 units SUB-Q QHS #10 ml 07/30/20 08/30/20 Unknown Rx Insulin Regular, Human [HumuLIN R] 0 unit SQ AC #1 vial 07/30/20 08/30/20 Unknown Rx Sennosides/Docusate Sodium 1 each PO DAILY #30 tablet 07/30/20 08/30/20 Unknown Rx [Senna-S 8.6-50 mg Tablet] cloNIDine [Catapres] 0.1 mg PO TID #90 tablet 07/30/20 08/30/20 Unknown Rx levoFLOXacin [Levaquin] 750 mg PO QDAY #42 tablet 09/01/20 Unknown Rx Naproxen 500 mg PO BID #8 tablet 09/18/20 Unknown Rx methOCARBAMOL [Robaxin TAB] 500 mg PO Q8H PRN #30 tablet 09/18/20 Unknown Rx oxyCODONE /ACETAMINOPHEN [Percocet 1 tab PO Q6H PRN #10 tablet 09/21/20 Unknown Rx 5/325 mg] Active Meds: Active Medications Acetaminophen (Acetaminophen 325 Mg Tab) 650 mg PO Q4H PRN PRN Reason: Pain, Mild (1-3)/Fever Aspirin (Aspirin Ec 81 Mg Tab) 81 mg PO QDAY [facility] Last Admin: 10/03/20 12:22 Dose: 81 mg Documented by: Dextrose (Dextrose 50% In Water (25gm) 50 Ml Syringe) 50 ml IV Q30MIN PRN; Protocol PRN Reason: Hypoglycemia Last Admin: 10/03/20 08:08 Dose: 20 ml Documented by: Heparin Sodium (Porcine) (Heparin 5,000 Unit/1 Ml Vial) 5,000 unit SUB-Q Q8HR [facility] Last Admin: 10/03/20 05:44 Dose: 5,000 unit Documented by: Sodium Chloride (Nacl 0.9% 1000 Ml) 1,000 mls @ 75 mls/hr IV DIRECT [facility] Last Admin: 10/02/20 22:53 Dose: 75 mls/hr Documented by: Cefepime HCl (Cefepime/Ns 2 Gm/100 Ml) 2 gm in 100 mls @ 200 mls/hr IV Q8H [facility]; Protocol Last Admin: 10/03/20 05:44 Dose: 200 mls/hr Documented by: Vancomycin HCl 1,750 mg/ (Sodium Chloride) 535 mls @ 333.333 mls/hr IV Q12H [facility] Insulin Glargine (Insulin Glargine 100 Units/Ml) 15 units SUB-Q BID [facility] Last Admin: 10/03/20 12:22 Dose: 15 units Documented by: Insulin Human Lispro (Insulin Lispro 100 Unit/Ml) 0 unit SUB-Q ACHS [facility]; Protocol Last Admin: 10/03/20 12:22 Dose: 6 unit Documented by: Magnesium Hydroxide (Magnesium Hydroxide (Mom) Oral Liqd Udc) 30 ml PO Q4H PRN PRN Reason: Constipation Morphine Sulfate (Morphine 2 Mg/1 Ml Inj) 2 mg IV Q4H PRN PRN Reason: Pain, Moderate (4-6) Last Admin: 10/03/20 12:27 Dose: 2 mg Documented by: Ondansetron HCl (Ondansetron 4 Mg/2 Ml Inj) 4 mg IV Q8H PRN PRN Reason: Nausea And Vomiting Oxycodone/Acetaminophen (Oxycodone /Acetaminophen 5-325mg Tab) 1 tab PO Q6H PRN PRN Reason: Pain, Moderate (4-6) Sodium Chloride (Sodium Chloride 0.9% 10 Ml Flush Syringe) 10 ml IV BID IRMA Sodium Chloride (Sodium Chloride 0.9% 10 Ml Flush Syringe) 10 ml IV PRN PRN PRN Reason: LINE FLUSH Physical Examination - Physical Exam Narrative exam: Physical Exam: Constitutional: Alert, cooperative. No acute distress Head, Ears, Nose: Normocephalic, atraumatic. External ears, nose normal Eyes: Conjunctivae/corneas clear. No icterus. No ptosis. Neck: Supple, no meningeal signs Cardiovascular: S1, S2 normal. Respiratory: Good air entry, clear to auscultation bilaterally GI: Soft, non-tender; bowel sounds normal. No peritoneal signs Musculoskeletal: Left BKA stump well-healed. Right TMA, plantar wound without any necrosis or purulence Skin: No rash or abscess Hem/Lymphatic: No palpable cervical or supraclavicular nodes. No lymphangitis Neurological: Awake, alert, oriented. No gross abnormality - Constitutional Vitals: Vital Signs Temp Pulse Resp BP Pulse Ox 98.8 F 94 H 22 166/87 93 10/03/20 11:43 10/03/20 11:43 10/03/20 11:43 10/03/20 11:43 10/03/20 11:43 Temperature -Last 24 Hours Temperature 98.8 F Temperature 98.8 F Temperature 97.7 F Temperature 98.2 F Temperature 98.2 F Temperature 97.3 F Results - Labs CBC & Chem 7: 10/02/20 17:45 10/02/20 17:45 Labs: Abnormal lab results 10/02/20 10/02/20 10/03/20 Range/Units 17:45 17:45 01:17 RDW 17.1 H (13.2-15.2) % [place] % (Auto) 7.9 H (0.0-7.3) % Sodium 133 L (137-145) mmol/L Potassium 3.2 L (3.6-5.0) mmol/L Glucose 370 H (75-100) mg/dL POC Glucose 259 H (70-105) mg/dL Albumin 3.1 L (3.9-5) g/dL 10/03/20 10/03/20 10/03/20 Range/Units 07:55 08:29 11:44 RDW (13.2-15.2) % [place] % (Auto) (0.0-7.3) % Sodium (137-145) mmol/L Potassium (3.6-5.0) mmol/L Glucose (75-100) mg/dL POC Glucose 44 L 322 H 376 H (70-105) mg/dL Albumin (3.9-5) g/dL - Imaging and Cardiology Chest x-ray: report reviewed Assessment and Plan Cultures: 10/02/2020 blood culture: In process A/P: 50-year-old male with diabetes, hypertension, left BKA was admitted to the hospital with complaints of right lower extremity pain. Patient was recently admitted to the hospital with right foot osteomyelitis. He is known to us from his multiple recent hospitalizations: #Chronic right foot osteomyelitis: This has been present for over a year. We cynthia elizondo attempted to treat this with IV antibiotics several times in the recent past, patient has significant compliance issues, homelessness, poor care of the wound. He was discharged in July 2020 with PICC line and IV antibiotics, about 2 weeks into this, due to significant compliance issues, his antibiotics had to be stopped and then was given p.o. antibiotics. He was readmitted last month, my colleague Dr. Pink, got him approved for IV dalbavancin infusions in the clinic, patient received 2 doses and has been on p.o. levofloxacin for 6 weeks since last month and then did not follow-up. #Peripheral vascular disease #Diabetes mellitus type 2 Recs: -Complete remainder of p.o. levofloxacin x 5 days -Mainstay for this is wound care and patient has been noncompliant with this. Consider placement if possible Joni Meraz MD, FACP [facility] O: [phone] F: [phone]
[2020-10-03] MEDS ORDERED: levoFLOXacin 750 MG TAB PO SCH (15:00)
--- NOTE | 2020-10-03 16:51 | Discharge Summary ---
Providers - Providers Date of Admission: 10/02/20 22:11 Date of discharge: 10/03/20 Attending physician: LIAT OLIVO 10/02/20 22:32 Consult to Physician [CONS] Routine Comment: Consulting Provider: LUKE VILLANUEVA Physician Instructions: Reason For Exam: Infected Right foot ulcer 10/02/20 22:34 Consult to Dietitian/Nutrition [CONS] Routine Physician Instructions: Reason For Exam: Reason for Consult: Diet education 10/03/20 06:58 Consult to Wound/ET Nurse [CONS] Routine Reason For Exam: wound eval 10/03/20 15:35 Consult to Case Management [CONS] Routine Services Needed at Discharge: Other Notified:: NEHEMIAS Additional Physician Instructions: Patient has been readmitted here for similar problems and will need placement 10/03/20 15:36 Occupational Therapy Evaluate and Treat [CONS] Routine Comment: Reason For Exam: Evaluate ADLs Physical Therapy Evaluation and Treat [CONS] Routine Comment: Reason For Exam: For placement Hospitalization Condition: Stable Hospital course: 50-year-old male with known history of hypertension, diabetes mellitus, left BKA and right foot osteomyelitis presenting to the emergency room today complaining of right lower extremity pain. Was recently admitted in this hospital for right foot osteomyelitis about 4 weeks ago during which he had a PICC line for antibiotics. Patient indicates that he could no longer for the IV antibiotics so he was switched to p.o. antibiotics. Patient was last seen by the infectious disease physician about 2 weeks ago and cannot recall the name of his current medication. Patient indicates that his wound has not gotten better and was seen in the emergency room about 10 to 11 days ago during which dressings were changed and sent home. Patient has no change his dressing since his visit to the emergency room. He has also sustained an abrasion to the left knee since his prosthetic foot broke. Work-up in the emergency room today has been unremarkable. Patient is being readmitted for worsening right lower extremity ulcer. 10/03. On cefepime and vancomycin. ID evaluation. Patient still refuses amputation. 2Pm. Patient has been seen by ID. He will complete levaquin PO. He needs to continue wound care. food service manager is trying to arrange for home health for him. He has an appointment with a PCP in 1 week. He agrees with plan. Disposition: [id number] HOME UNDER HOME [facility] Final Discharge Diagnosis (Prints w/discharge instructions): chronic osteomyelitis Time spent for discharge: 25mins - Discharge Diagnoses (1) Chronic osteomyelitis Status: Acute Core Measure Documentation - Palliative Care Palliative Care/ Comfort Measures: Not Applicable - Core Measures Any of the following diagnoses?: none Exam - Physical Exam Narrative exam: VITAL SIGNS: Reviewed. GENERAL: Awake HEAD: No signs of head trauma. EYES: Pupils are equal. Extraocular motions intact. MOUTH: Oropharynx is normal. NECK: No adenopathy, no JVD. CHEST: Chest with diminished breath sounds bilaterally. No wheezes, rales, or rhonchi. CARDIAC: normal S1 and S2, without murmurs, gallops, or rubs. ABDOMEN: Soft, non tender and non distended. No rebound or guarding, and no masses palpated. Bowel Sounds normal. MUSCULOSKELETAL: Left BKA. Right LE - chronic venous stasis changes with NEUROLOGIC EXAM: Alert and oriented x3. No focal neurologic deficits SKIN: No obvious lesions - Constitutional Vitals: Temp Pulse Resp BP Pulse Ox 97.0 F L 89 20 175/104 96 10/03/20 14:56 10/03/20 14:56 10/03/20 14:56 10/03/20 14:56 10/03/20 14:56 Plan Additional Instructions: Complete levaquin. Continue wound care. Follow up with PCP in a week Follow up with: [facility] [Other] - 3-5 Days Prescriptions: levoFLOXacin [Levaquin TAB] 750 mg PO Q24HR #5 tablet oxyCODONE /ACETAMINOPHEN [Percocet 5/325 mg] 1 tab PO Q6H PRN 3 Days #10 tablet PRN Reason: Pain, Moderate (4-6)
[2020-10-03] MEDS: oxyCODONE /ACETAMINOPHEN 5-325MG TAB PO PRN (20:59)
[2020-10-04] MEDS: oxyCODONE /ACETAMINOPHEN 5-325MG TAB PO PRN (02:52)
[2020-10-04 03:59] VITALS: BP 147/80
[2020-10-04] MEDS: HEPARIN 5,000 UNIT/1 ML VIAL SUB-Q SCH (05:54)
[2020-10-04 06:24] LABS: Basophils % (Auto) 0.6 % (0.0-1.8); Eosinophils # (Auto) 0.2 K/mm3 (0.0-0.4); Eosinophils % (Auto) 2.8 % (0.0-4.3); Hematocrit 36.1 % (35.5-45.6); Hemoglobin 11.4 gm/dl (11.8-15.2); Lymphocytes # (Auto) 2.9 K/mm3 (1.2-5.4); Lymphocytes % (Auto) 38.9 % (13.4-35.0); Mean Corpuscular HGB Conc 32 % (32-34); Mean Corpuscular Volume 86 fl (84-94); Monocytes # (Auto) 0.6 K/mm3 (0.0-0.8); Monocytes % (Auto) 8.2 % (0.0-7.3); Platelet Count 271 K/mm3 (140-440); Red Cell Distribution Width 16.9 % (13.2-15.2)
[2020-10-04 06:29] LABS: INR 1.1 (0.87-1.13)
[2020-10-04 06:44] LABS: Blood Urea Nitrogen 12 mg/dL (9-20); Calcium 9.1 mg/dL (8.4-10.2); Hemolysis Index 5
[2020-10-04 06:48] LABS: BUN/Creatinine Ratio 17
--- NOTE | 2020-10-05 10:31 | Electrocardiograph Report ---
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
== END 2020-10-04 11:51 | disposition home health service (06) ==
LOC: ED 15:06 → 3A 22:11 → OBSVTOIN 22:11 → INTOOBSV 22:11 → 3B 22:30
PROVIDERS: ADMIT Internal Medicine Geriatric Medicine; ATTEND Internal Medicine
DX: S81.801A Unspecified open wound, right lower leg, initial encounter (principal); L03.115 Cellulitis of right lower limb; I10 Essential (primary) hypertension; I73.9 Peripheral vascular disease, unspecified; M86.9 Osteomyelitis, unspecified; E11.9 Type 2 diabetes mellitus without complications; F17.210 Nicotine dependence, cigarettes, uncomplicated; Z98.890 Other specified postprocedural states; Z79.82 Long term (current) use of aspirin; Z79.4 Long term (current) use of insulin; X58.XXXA Exposure to other specified factors, initial encounter; Y92.89 Other specified places as the place of occurrence of the external cause; Y93.89 Activity, other specified; Y99.8 Other external cause status
CPT/HCPCS: 36415; 73562; 73620; 80048; 80053; 82140; 82962; 85025; 85610; 87040; 87641; 93005; 96365; 96366; 96367; 96372; 96375; 96376; 99285; 99406; G0378; J0692; J1644; J2270; J3370; J7030; J7040; J1815